=== PATIENT | male | born 1975 | race Caucasian/White ===

== ENCOUNTER 2017-10-29 10:46 | Emergency (ER) | payer BC, SELFPAY ==
[2017-10-29 10:53] VITALS: BP 143/90; PULSE 80; RESP 16; TEMP 36.6; O2SAT 98; BMI 29.1
--- NOTE | 2017-10-29 10:59 | HMH.EDUTC ---
[facility] [place]: G[place]itis Disposition: Home, Self-Care Condition on Discharge: Good Instructions: DI for Viral Gastroenteritis -- Adult, Viral Gastroenteritis Additional Instructions: ? Drink extra fluids with and between meals. If you have difficulty drinking, try very small amounts of water or suck on ice chips. ? Avoid fruit juices, as these do not replace minerals and can actually increase diarrhea. ? Children and adults can use sports drinks to replenish electrolytes. Younger children and infants should use products formulated for children, like oral rehydration solutions. ? Eat food in small amounts and let your stomach recover. ? Get lots of rest. You may feel tired or weak. ? Check with your doctor before taking medications or giving them to children. Never give aspirin to children or teenagers with a viral illness. This can cause Shankar syndrome, a potentially life-threatening condition. Prescriptions: Ondansetron [Zofran 4mg ODT] 4 mg PO Q8H PRN #20 tab.rapdis PRN Reason: Nausea Referrals: Domingo Valera MD [Primary Care Provider] - Forms: Work/School Release Time of Disposition: 12:11 Medical Decision Making - Medical Records Medical records reviewed: Yes: I reviewed the patient's medical records. Vital Signs: 10/29/17 10:53 Temperature 97.8 F Temperature Source Temporal Artery Scan Pulse Rate [Right] 80 Respiratory Rate 16 Blood Pressure [Right Arm] 143/90 Blood Pressure Mean [Right Arm] 107 Blood Pressure Source [Right Arm] Automatic Cuff Blood Pressure Position [Right Arm] Sitting 02 Sat by Pulse Oximetry 98 Oxygen Delivery Method Room Air Orders (Tests/Meds): ED MEDICATIONS Generic Name Dose Route Start Last Admin Trade Name Freq PRN Reason Stop Dose Admin Sodium Chloride 500 mls @ 500 mls/hr 10/29/17 11:23 10/29/17 11:24 Sod Chlor 0.9% 500ml Bag IV 10/29/17 12:22 500 mls/hr .Q1H LEILANI Administration Discontinued Medications Generic Name Dose Route Start Last Admin Trade Name Freq PRN Reason Stop Dose Admin Sodium Chloride 500 mls @ 500 mls/hr 10/29/17 11:15 Sod Chlor 0.9% 500ml Bag IV 11/28/17 11:14 .Q1H LEILANI Ondansetron HCl 4 mg 10/29/17 11:05 10/29/17 11:22 Zofran 4mg/2ml Vial IV 10/29/17 11:06 4 mg ONCE ONE Administration - Jose Inquiry Pt receiving controlled substance: No Jose was queried for this patient: No - Reevaluation(s) Time: 12:02 Reevaluation #1: Patient state that he feels much better after 500cc saline bolus and Zofran Patient ready for [place] [facility] [place] - General Stated complaint: nausea vomiting weak Mode of Arrival: Ambulatory Source of Information: Patient Limitations: No Limitations Description of Symptoms (Recalled from Triage Doc. by RN): n/v x2 days HEENT Symptoms (Recalled from RN notes): No Resp Symptoms (Recalled from RN notes): No Skin Symptoms (Recalled from RN notes): No MS Symptoms (Recalled from RN notes): No Functional Status (Recalled from RN notes): N - History of Present Illness Provider Complaint: Patient state that he has been having nausea vomiting and diarrhea since yesterday that has continued to get worse State that he has not been able to eat anything since yesterday but he has been drinking water State that he has had multiple eppisodes of both vomiting and diarrhea and he was worried that he may get dehydrated so he came in to get checked out - Related Data Previous Rx's Medication Instructions Recorded Ondansetron [Zofran 4mg ODT] 4 mg PO Q8H PRN #20 tab.rapdis 10/29/17 Allergies Allergy/AdvReac Type Severity Reaction Status Date / Time No Known Allergies Allergy Verified 10/29/17 10:57 - Worker's Comp Is this a Worker's Comp case?: No [facility] History I have reviewed the patient's past medical history: Yes - *Social History Alcohol Intake: never - Psychiatric History Expresses thoughts of harming self
--- NOTE | 2017-10-29 11:04 | ED_ITS ---
[facility] [place] Disposition Clinical Impression: Gastroenteritis Disposition: Home, Self-Care Condition on Discharge: Good Instructions: DI for Viral Gastroenteritis -- Adult, Viral Gastroenteritis Additional Instructions: ? Drink extra fluids with and between meals. If you have difficulty drinking, try very small amounts of water or suck on ice chips. ? Avoid fruit juices, as these do not replace minerals and can actually increase diarrhea. ? Children and adults can use sports drinks to replenish electrolytes. Younger children and infants should use products formulated for children, like oral rehydration solutions. ? Eat food in small amounts and let your stomach recover. ? Get lots of rest. You may feel tired or weak. ? Check with your doctor before taking medications or giving them to children. Never give aspirin to children or teenagers with a viral illness. This can cause Mackenzie?s syndrome, a potentially life-threatening condition. Prescriptions: Ondansetron [Zofran 4mg ODT] 4 mg PO Q8H PRN #20 tab.rapdis PRN Reason: Nausea Referrals: Domingo Valera MD [Primary Care Provider] - Forms: Work/School Release Time of Disposition: 12:11 Medical Decision Making - Medical Records Medical records reviewed: Yes: I reviewed the patient's medical records. Vital Signs: 10/29/17 10:53 Temperature 97.8 F Temperature Source Temporal Artery Scan Pulse Rate [Right] 80 Respiratory Rate 16 Blood Pressure [Right Arm] 143/90 Blood Pressure Mean [Right Arm] 107 Blood Pressure Source [Right Arm] Automatic Cuff Blood Pressure Position [Right Arm] Sitting 02 Sat by Pulse Oximetry 98 Oxygen Delivery Method Room Air Orders (Tests/Meds): ED MEDICATIONS Generic Name Dose Route Start Last Admin Trade Name Freq PRN Reason Stop Dose Admin Sodium Chloride 500 mls @ 500 mls/hr 10/29/17 11:23 10/29/17 11:24 Sod Chlor 0.9% 500ml Bag IV 10/29/17 12:22 500 mls/hr .Q1H LEILANI Administration Discontinued Medications Generic Name Dose Route Start Last Admin Trade Name Freq PRN Reason Stop Dose Admin Sodium Chloride 500 mls @ 500 mls/hr 10/29/17 11:15 Sod Chlor 0.9% 500ml Bag IV 11/28/17 11:14 .Q1H ELILANI Ondansetron HCl 4 mg 10/29/17 11:05 10/29/17 11:22 Zofran 4mg/2ml Vial IV 10/29/17 11:06 4 mg ONCE ONE Administration - Jose Inquiry Pt receiving controlled substance: No Jose was queried for this patient: No - Reevaluation(s) Time: 12:02 Reevaluation #1: Patient state that he feels much better after 500cc saline bolus and Zofran Patient ready for discharge home [facility] [place] HPI - General Stated complaint: nausea vomiting weak Mode of Arrival: Ambulatory Source of Information: Patient Limitations: No Limitations Description of Symptoms (Recalled from Triage Doc. by RN): n/v x2 days HEENT Symptoms (Recalled from RN notes): No Resp Symptoms (Recalled from RN notes): No Skin Symptoms (Recalled from RN notes): No MS Symptoms (Recalled from RN notes): No Functional Status (Recalled from RN notes): N - History of Present Illness Provider Complaint: Patient state that he has been having nausea vomiting and diarrhea since yesterday that has continued to get worse State that he has not been able to eat anything since yesterday but he has been drinking water State that he has had multipl
[2017-10-29 12:02] VITALS: BP 140/90; PULSE 88; RESP 18; TEMP 36.6
== END 2017-10-29 12:14 | disposition home or self-care (01) ==
PROVIDERS: Emergency Provider Nurse Practitioner; Family Provider Emergency Medicine; PCP Emergency Medicine
DX: K52.9 Noninfective gastroenteritis and colitis, unspecified (principal)
CPT/HCPCS: 96375; 99202; J2405

== ENCOUNTER → 2018-04-03 08:26 | Outpatient (CLI) | payer BC, SELFPAY ==
[2018-04-03 17:42] LABS: Basophils # 0.1 K/mm3 (0-0.2); Basophils % 0.6 % (0.1-2.0); Eosinophils # 0.2 K/mm3 (0.0-0.4); Eosinophils % 2.2 % (0.1-12.0); Hematocrit 48.2 % (42.0-52.0); Hemoglobin 15.3 g/dL (14.1-18.0); Lymphocytes # 2.3 K/mm3 (0.7-4.5); Lymphocytes % 26.4 K/mm3 (10-50); Mean Corpuscular HGB Conc 31.8 g/dL (31.8-35.4); Mean Corpuscular Hemoglobin 28.1 pg (27.0-31.2); Mean Corpuscular Volume 88.4 fl (80-94); Mean Platelet Volume 9.2 fl (7.4-10.4); Monocytes # 0.6 K/mm3 (0.1-1.0); Monocytes % 7.2 % (1.7-9.3); Neutrophils # 5.6 K/mm3 (1.8-7.8); Neutrophils % 63.5 % (37.0-80.0); Platelet Count 249 K/mm3 (142-424); Red Blood Count 5.45 M/mm3 (4.60-6.20); Red Cell Distribution Width 13.6 % (11.5-17.5); White Blood Count 8.7 K/mm3 (4.8-10.8)
[2018-04-03 18:27] LABS: Alanine Aminotransferase 47 U/L (12-78); Albumin Level 4.1 gm/dL (3.4-5.0); Albumin/Globulin Ratio 1.3 (1.1-1.8); Alkaline Phosphatase 81 U/L (46-116); Anion Gap 11.4 mEq/L (5-15); Aspartate Amino Transferase 17 U/L (15-37); Bilirubin,Total 0.4 mg/dL (0.2-1.0); Blood Urea Nitrogen 12 mg/dL (7-18); Calcium 9.1 mg/dL (8.5-10.1); Carbon Dioxide 30 mmol/L (21.0-32.0); Chloride 106 mmol/L (98-107); Chol/HDL Ratio 6.1 (1-3.5); Cholesterol 215 mg/dL (140-200); Creatinine,Serum 1.01 mg/dL (0.70-1.30); Estimated Glomerular Filt Rate 81 ml/min (>60); GFR (African American) 99 ML/MIN (>60); Globulin 3.1 gm/dl (1.3-3.2); Glucose 78 mg/dL (74-106); HDL Cholesterol 35 mg/dL (27-67); LDL Cholesterol 124 mg/dL (0-130); Potassium 4.4 mmoL/L (3.5-5.1); Sodium 143 mmol/L (136-145); Thyroid Stimulating Hormone 6.54 uIU/ml (0.358-3.740); Total Protein,Serum 7.2 gm/dL (6.4-8.2); Triglycerides 278 mg/dL (30-200); VLDL Cholesterol 56 mg/dL (0-40)
== END ==
PROVIDERS: Visit Provider Nurse Practitioner Family
DX: E66.3 Overweight (principal); R68.89 Other general symptoms and signs
CPT/HCPCS: 80053; 80061; 83036; 84436; 84443; 85025

== ENCOUNTER → 2020-05-08 14:24 | Outpatient (CLI) | payer BC, SELFPAY ==
--- NOTE | 2020-05-08 14:27 | MR_ITS ---
PROCEDURE: MR KNEE LT WO CON CLINICAL INDICATION: LEFT ANTERIOR KNEE PAIN Pt c/o left knee pain x 5-6 weeks. No known trauma or injury, pt states unable to bend extended knee. States knee locks up Pain is more lateral and posterior. COMPARISON: No exams were available for comparison TECHNIQUE: Routine multiplanar multi echo sequences are performed without gadolinium enhancement. FINDINGS: No evidence of cruciate ligament tear. The collateral ligaments, patellar tendon, and quadriceps tendon have an unremarkable appearance. The patellar cartilage is preserved. There is discontinuity along the inferior surface the posterior horn of the medial meniscus extending to the femoral surface slightly more lateral consistent with a nondisplaced longitudinal tear. The lateral meniscus has an unremarkable appearance. Unremarkable bone marrow signal intensity. There is only small amount of fluid in the retropatellar region. IMPRESSION: Nondisplaced longitudinal tear posterior horn medial meniscus Dictated by: Chucho Weeks MD 05/10/2020 11:20 Chucho Weeks MD in [place] 05/10/2020 11:21
== END ==
PROVIDERS: PCP Nurse Practitioner Family; Visit Provider Nurse Practitioner Family
DX: M25.562 Pain in left knee (principal); M25.462 Effusion, left knee; M23.52 Chronic instability of knee, left knee
CPT/HCPCS: 73721

== ENCOUNTER → 2020-06-12 14:27 | Outpatient (CLI) | payer BC, SELFPAY ==
--- NOTE | 2020-06-12 14:31 | XR_ITS ---
PROCEDURE: XR KNEE LT 4V CLINICAL INDICATION: LT knee pain COMPARISON: No exams were available for comparison FINDINGS: No fracture or dislocation. No lytic or blastic change. There is normal mineralization. The joint spaces are well-preserved. No significant degenerative/arthritic changes. No erosive changes evident. Other findings:None. IMPRESSION: No acute findings. Dictated by: Chucho Weeks MD 06/12/2020 15:15 Chucho Weeks MD in [facility] 06/12/2020 15:15
== END ==
PROVIDERS: PCP Nurse Practitioner Family; Visit Provider Orthopaedic Surgery
DX: M25.562 Pain in left knee (principal)
CPT/HCPCS: 73564

== ENCOUNTER → 2020-06-19 08:35 | Outpatient (CLI) | payer BC, SELFPAY ==
[2020-06-19 08:38] LABS: MANUAL DIFFERENTIAL MANUAL DIFFERENTIAL (MANUAL DIFF)
[2020-06-19 08:55] LABS: Basophils % 0.7 % (0.1-2.0); Eosinophils # 0.3 K/mm3 (0.0-0.4); Eosinophils % 3.9 % (0.1-12.0); Hematocrit 43.7 % (42.0-52.0); Hemoglobin 14.9 g/dL (14.1-18.0); Mean Corpuscular HGB Conc 34.1 g/dL (31.8-35.4); Mean Corpuscular Hemoglobin 30.4 pg (27.0-31.2); Mean Corpuscular Volume 89.3 fl (80-94); Mean Platelet Volume 7.9 fl (7.4-10.4); Monocytes # 0.4 K/mm3 (0.1-1.0); Monocytes % 6.6 % (1.7-9.3); Neutrophils # 3.6 K/mm3 (1.8-7.8); Neutrophils % 56.8 % (37.0-80.0); Platelet Count 202 K/mm3 (142-424); Red Cell Distribution Width 13.4 % (11.5-17.5); White Blood Count 6.3 K/mm3 (4.8-10.8)
[2020-06-19 10:26] LABS: Alanine Aminotransferase 24 U/L (12-78); Albumin/Globulin Ratio 1.6 (1.1-1.8); Alkaline Phosphatase 73 U/L (38-126); Anion Gap 11.7 mEq/L (5-15); Aspartate Amino Transferase 22 U/L (17-59); Bilirubin,Total 0.5 mg/dl (0.2-1.3); Blood Urea Nitrogen 10 mg/dl (9-20); Calcium 9.7 mg/dl (8.4-10.2); Carbon Dioxide 29 mmol/L (22.0-30.0); Chloride 104 mmol/L (98-107); Estimated Glomerular Filt Rate 73 ml/min (>60); GFR (African American) 88 ML/MIN (>60); Globulin 2.5 g/dL (1.3-3.2); Glucose 101 mg/dl (74-100); Potassium 4.7 mmoL/L (3.5-5.1); Sodium 140 mmol/L (136-145); Total Protein,Serum 6.5 g/dl (6.3-8.2)
[2020-06-19 10:49] LABS: Coronavirus 19 IgG Antibody Negative (Negative); Coronavirus 19 IgM Antibody Negative (Negative)
[2020-06-19 11:57] LABS: Eosinophils % 6 % (0-3); Lymphocytes % 31 % (10-50); Monocytes % 8 % (2-9); Neutrophils % 55 % (42-76); Platelet Estimate Normal; RBC Morphology Normal; Total Cells Counted 100
== END ==
PROVIDERS: Visit Provider Orthopaedic Surgery
DX: Z01.89 Encounter for other specified special examinations (principal); M25.562 Pain in left knee
CPT/HCPCS: 36415; 80053; 85007; 85014; 85018; 85048; 85049; 86328

== ENCOUNTER 2020-06-20 07:49 | Day surgery (SDC) | payer BC, SELFPAY ==
[2020-06-20] VITALS (13 sets, daily range): BP systolic 114–143; BP diastolic 66–86; PULSE 54–86; RESP 10–18; TEMP 36.2–43; O2SAT 93–99; BMI 32.5
--- NOTE | 2020-06-20 08:58 | HMH.ANESCL ---
[facility] Anesthesia Checklist - Structural Data Admitted From: Home Planned Operative Procedure/s: l knee arthroscopy Consent for Planned Operative Procedure(s) Verified: Yes - Additional verifications Anesthesia Reactions: No Hx Blood Transfusions: No Blood Transfusion Reaction: No - Airway Assessment C-Spine Mobility Assessed: Yes TMJ Mobility Assessed: Yes Dentition: Good Dentition - Neurological Assessment Level of Consciousness: Awake, Alert, Appropriate - Anesthesia Plan Anesthesia Risk discussed: Yes Anesthesia Plan: Verified ASA Class: II Anesthesia Type: General w/block [facility] History I have reviewed the patient's past medical history: Yes Medical History: Reports:: Kidney Stones Denies:: Cancer, Diabetes Mellitus Type 1, Diabetes Mellitus Type 2, Internal Pacemaker, MRSA, Seizures *Have you ever received a pneumonia vaccine?: No *Have you received a flu vaccine this season?: No Other Medical History: Denies: Blood Transfusion Reaction Anesthesia experience/problems:: none Other Surgeries: Yes: Colonoscopy. No: Pacemaker Amputation: No Fractures: No - *Social History Smoking Status: Never smoker Alcohol Intake: never Alcohol Intake Frequency:: holidays/special occasions only Substance Use Type: denies use *Occupational Status:: employed Housing: house Household Members: spouse *Travel in the last 8 weeks: None Family Hx:: No significant family history
--- NOTE | 2020-06-20 10:45 | P.PN_ITS ---
[facility] Anesthesia Record Part I Intake, IV Amount: 1,000 Estimated blood loss (mL): 5 Urine output (mL): 0 Blood Pressure: 114/66 SaO2: 94 Pulse Rate: 54 Respiratory Rate: 16 Temperature: 97.2 F Patient is:: Drowsy, Stable Stable to PACU at:: 10:40
--- NOTE | 2020-06-20 12:35 | HMH.ANESII ---
[facility] Anesthesia Record Part II Discharge Time: 11:10 Destination: Surgical Day Care (OP Surgery) PACU nurse assessment reviewed?: Yes Patient Condition:: Good Anesthesia Complications:: None Swallowing reflex intact?: Yes Cyanosis?: No Blood Pressure: 130/71 Pulse Rate: 60 Temperature: 97.2 F Mental Status: Alert & Oriented Pain level:: 0 Nausea and/or vomitting:: None Intake, IV Amount: 0
--- NOTE | 2020-06-20 20:52 | HMH.OPNOTE ---
Date of procedure: 06/20/20 Pre-op Diagnosis:: L knee medial meniscus tear Post-op Diagnosis:: L knee medial meniscus tear Procedure performed:: L knee arthroscopy, partial medial meniscectomy Surgeon:: Sally Kapadia MD Keyboard Instrument Repairer(s):: Tiarra Jernigan GYROSCOPIC ENGINEERING TECHNICIAN:: Norbert Sweeney Anesthesia: GETA, local, other Estimated blood loss (mL): 5 Clinical Note:: 44-year-old gentleman with approximately 8 weeks of left knee pain. 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 He does recall that approximately 1 to 2 weeks prior to that he jumped off the back of a truck and landed on both legs with a popping sensation and discomfort in the knee. He did not have significant pain after that however. Over the last 8 weeks he has tried oral anti-inflammatories, tramadol, and icing of the knee in addition to rest, but the pain has not improved. He has had an MRI done by his primary care physician. Past medical history significant only for hypertension, which is controlled with lisinopril 20 mg daily. He is a non-smoker and has no known drug allergies. He is employed by [employer]. MRI revealed a tear of the posterior horn of the medial meniscus, without any other injury or noticeable degenerative changes in the knee. I discussed treatment options with the patient, including both operative and non-operative treatments, and the patient would like to proceed with surgery at this time. I discussed the possibility of meniscus repair if the tear appears amenable to this at the time of surgery, as well as the possibility of partial meniscectomy. I discussed the risks of surgery with the patient, including but not limited to: bleeding, infection, bruising of the knee, neurovascular damage, intra-operative MCL injury or fracture, risk of post-operative tourniquet pain, persistent pain and/or limp despite surgery. The patient vocalized understanding and has elected to proceed with surgery on 06/20/20. 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 Moderate tear of posterior horn medial meniscus, bird beak shape, with both radial and horizontal components, involving medial 1/3-1/2 of meniscus in white-white and maybe some of the red-white zone. No meniscal root involvement. notch: ACL, PCL intact, no osteophytes/impinging lesions lateral compartment: no issues noted Operative note:: The patient was identified in preoperative holding and the L knee signed by myself. Informed consent was reviewed and confirmed with the patient, all questions answered. Pre-operative laboratory testing was reviewed and found to be within acceptable limits. The patient was then taken to the OR and placed supine on the operative table. 2 g Ancef were infused and general anesthesia induced. The L leg was then placed in an arthroscopic leg shaikh with a nonsterile tourniquet on the upper thigh. The leg was then prepped and draped in the usual sterile fashion for knee arthroscopy. Timeout was performed, identifying the correct patient, correct procedure, and correct site. The procedure was begun by first exsanguinating the L leg and inflating the tourniquet to 250 mmHg. Using an 11 blade, standard anterolateral and anteromedial portals were established on the knee, using normal anatomic landmarks. 30 degree arthroscope was inserted via the lateral portal into the suprapatellar pouch with the knee in extension. A superolateral outflow portal was then established under direct visualization with tubing connected to gravity. The patellofemoral joint was examined first and no focal defects seen across both medial and lateral facets of the patella. 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 No plica, hypertroph
== END 2020-06-20 11:53 | disposition home or self-care (01) ==
LOC: OR 07:50
PROVIDERS: PCP Nurse Practitioner Family; Visit Provider Orthopaedic Surgery
PROC: (CPT 29870; principal; 2020-06-20 09:15)
DX: S83.242A Other tear of medial meniscus, current injury, left knee, initial encounter (principal); Y93.39 Activity, other involving climbing, rappelling and jumping off
CPT/HCPCS: 29882; 96374; J2405

== ENCOUNTER 2020-07-27 09:00 | Outpatient (RCR) | payer BC, SELFPAY ==
--- NOTE | 2020-07-05 10:28 | HMH.PTOPEV ---
PT Outpatient Evaluation Rehab PT Outpatient Evaluation Start: 07/05/20 09:21 Freq: Status: Active Protocol: Document 07/05/20 09:22 CÉSAR (Rec: 07/05/20 10:22 CÉSAR [id number]) Electronically Signed By Tad Baez, PT 07/05/20 09:22 Outpatient Therapy Subjective History Subjective History Pt presents s/p L knee partial medial meniscectomy ~ 2 weeks ago. Pt reports 'normal' post -op pain, stiffness, weakness, and swelling. Pt reports initial insult to L knee ' likely happened about 6 weeks ago when i jumped off my tailgate'. Chief Complaint Pain,Stiff,Weakness Symptom Type Ache,Dull Symptoms Relieved By Rest/Positioning,Ice Symptoms Aggravated By Standing,Walking Prior Functional Limitations Standing,Walking,Stairs Current Functional Limitations Standing,Squatting,Walking, Stairs Symptom Description Constant but Variable Level of pain today (0-10) 4 Pain scale - at its best (0-10) 4 Pain scale - at its worst (0-10) 7 Hip/Knee Eval Gait Observation General Gait Pattern Observation Antalgic Gait Palpation Tenderness left Knee Palpation Finding Tenderness Knee Palpation Overall Comment VL 3/4 (DISTAL MM BELLY), MEDIAL JT LINE 3/4 MMT Hip Flexion Strength Grade 4 Good Hip Abduction Strength Grade 4- Good- Hip Adduction Strength Grade 4- Good- Hip Extension Strength Grade 4- Good- Hip External Rotation Strength Grade 4 Good Hip Internal Rotation Strength Grade 4 Good Knee Extension Strength Grade 4 Good Knee Flexion Strength Grade 4- Good- ROM Knee Flexion Active Range of Motion ( 10-105 degrees) Knee Flexion Passive Range of Motion ( 5-110 degrees) Effusion joint effusion knee exam standard left Mid - Patellar Circumerential Measure ( 42 cm) Outpatient Therapy Assessment Impairments Problems/Impairmments Palpation Tenderness,Impaired Range of Motion,Impaired Strength,Impaired Gait Pattern ,Impaired Walking,Impaired Standing,Impaired Stair Climbing,Impaired Squatting, Increased Edema,Subjective C/O Pain,Impaired Self Care/Self Management Prognosis Rehab Potential Good Clinical Impression Consistent with Diagnosis
== END 2020-07-27 09:47 | disposition home or self-care (01) ==
LOC: PT 09:00
PROVIDERS: PCP Nurse Practitioner Family; Visit Provider Orthopaedic Surgery
DX: S83.242D Other tear of medial meniscus, current injury, left knee, subsequent encounter (principal)
CPT/HCPCS: 97010; 97014; 97016; 97110; 97163; G0283

== ENCOUNTER → 2020-08-21 12:07 | Outpatient (CLI) | payer BC, SELFPAY ==
[2020-08-22 13:58] LABS: Covid-19 Nasal PCR Sendout Lex NOT DETECTED
== END ==
PROVIDERS: PCP Nurse Practitioner Family; Visit Provider Nurse Practitioner
DX: Z03.818 Encounter for observation for suspected exposure to other biological agents ruled out (principal)
CPT/HCPCS: U0004

== ENCOUNTER → 2020-09-21 09:04 | Outpatient (CLI) | payer BC, SELFPAY ==
--- NOTE | 2020-09-21 09:17 | XR_ITS ---
PROCEDURE: XR ELBOW RT MIN 3V CLINICAL INDICATION: EFFUSION/PAIN, RIGHT ELBOW COMPARISON: No exams were available for comparison FINDINGS: There is a segmented calcific density which is well-circumscribed distal to the medial epicondyle and may represent an old fracture. There are no previous exams available for comparison. No acute fracture or dislocation is evident. No displaced fat pad apparent. A faint calcific density is present along the posterior aspect the elbow joint at the proximal olecranon area and could represent a small loose body measuring 1-2 mm. There are mild osteoarthritic changes of the elbow. 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
== END ==
LOC: RAD 09:08
PROVIDERS: PCP Nurse Practitioner Family; Visit Provider Nurse Practitioner Family
DX: M25.521 Pain in right elbow (principal); M25.421 Effusion, right elbow
CPT/HCPCS: 73080

== ENCOUNTER → 2020-09-27 07:46 | Outpatient (CLI) | payer BC, SELFPAY ==
--- NOTE | 2020-09-27 07:52 | MR_ITS ---
PROCEDURE: MR ELBOW RT WO CON CLINICAL INDICATION: RT ELBOW PAIN Pt. c/o rt elbow pain with limited range of motion x 1 month. Pt denies injury or trauma. Pt states his elbow locks up. Pt has never had any surgery on the rt elbow. Prior rt elbow xrays done 09/21/2019 COMPARISON: CR XR ELBOW RT MIN 3V from 09/21/2020 TECHNIQUE: Routine multiplanar multi echo sequences are performed without gadolinium enhancement. FINDINGS: There is a separate calcific density distal to the lateral epicondyle as noted recent radiograph with 2 areas of calcification at this region. This may be related to an old ununited fracture or ununited ossification center as noted from the previous radiograph. The ulnar collateral ligament attach is to this ossicle and appears intact. The lateral collateral ligament and annular ligament appear intact. There is a small elbow joint effusion. Common extensor tendon has an unremarkable appearance. There is some increased T2 signal at the common flexor tendon which could represent mild medial epicondylitis. The biceps tendon and brachialis tendons have an unremarkable appearance. Slight increased T2 signal of the triceps tendon nonspecific but could be seen with mild tendinopathy. IMPRESSION: 1. Small elbow joint effusion. 2. 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 There is some mild soft tissue edema edema at this region 3. Mild medial epicondylitis Dictated by: Chucho Weeks MD 10/02/2020 14:06 Chucho Weeks MD in [place] 10/02/2020 14:06
== END ==
LOC: RAD 07:47
PROVIDERS: PCP Nurse Practitioner Family; Visit Provider Orthopaedic Surgery
DX: M25.521 Pain in right elbow (principal); M25.421 Effusion, right elbow; Z98.890 Other specified postprocedural states
CPT/HCPCS: 73221

== ENCOUNTER 2020-11-10 12:28 | Emergency (ER) | payer BC, SELFPAY ==
[2020-11-10 12:33] VITALS: BP 143/78; PULSE 63; RESP 18; TEMP 36.7; O2SAT 96; BMI 32.5
--- NOTE | 2020-11-10 12:44 | HMH.EDUTC ---
[facility] [place] Disposition Clinical Impression: Low back pain Qualifiers: Chronicity: acute Back pain laterality: right Sciatica presence: without sciatica Qualified Code(s): M54.5 - Low back pain Disposition: Home, Self-Care Condition on Discharge: Good Instructions: DI for Low Back Pain Prescriptions: Cyclobenzaprine HCl [Cyclobenzaprine 10mg Tab*] 10 mg PO TIDP PRN 10 Days #30 tab PRN Reason: Muscle Spasm Transmission Status: Pending to [facility] # Diclofenac Sodium [Diclofenac 75mg Tab] 75 mg PO BID 10 Days #20 tab Transmission Status: Pending to [facility] # Referrals: Chantale Garcia APRN [Primary Care Provider] - Time of Disposition: 12:52 Medical Decision Making - Jose Inquiry Pt receiving controlled substance: No Vital Signs: 11/10/20 12:33 Temperature 98.0 F Temperature Source Oral Pulse Rate [Right Brachial] 63 Respiratory Rate 18 Blood Pressure [Right Arm] 143/78 H Blood Pressure Mean [Right Arm] 99 Blood Pressure Source [Right Arm] Automatic Cuff Blood Pressure Position [Right Arm] Sitting 02 Sat by Pulse Oximetry 96 Oxygen Delivery Method Room Air [facility] [place] HPI - General Stated complaint: low back pain, no accident Time Seen by Provider: 11/10/20 12:44 Mode of Arrival: Ambulatory Source of Information: Patient Limitations: No Limitations Description of Symptoms (Recalled from Triage Doc. by RN): Lower back pain HEENT Symptoms (Recalled from RN notes): No Resp Symptoms (Recalled from RN notes): No Skin Symptoms (Recalled from RN notes): No MS Symptoms (Recalled from RN notes): Yes Functional Status (Recalled from RN notes): wnl - History of Present Illness Provider Complaint: LBP X 2 days. No accident or injury but has had similar in the past. States pain started yesterday but was fairly mild. 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 Pain on right low back without radiation. Onset (ago): day(s) (2) Location: back Radiation: non-radiation Relieving factors: none Exacerbating factors: none Associated symptoms: denies other symptoms Treatments prior to arrival: NSAID - Related Data Home Medications Medication Instructions Recorded Confirmed lisinopriL [Lisinopril 20mg Tab] 20 mg PO DAILY 06/16/20 10/02/20 Previous Rx's Medication Instructions Recorded Cyclobenzaprine HCl 10 mg PO TIDP PRN 10 Days #30 tab 11/10/20 [Cyclobenzaprine 10mg Tab*] Diclofenac Sodium [Diclofenac 75mg 75 mg PO BID 10 Days #20 tab 11/10/20 Tab] Allergies Allergy/AdvReac Type Severity Reaction Status Date / Time No Known Allergies Allergy Verified 10/02/20 14:35 - Worker's Comp Is this a Worker's Comp case?: No [facility] History - Hepatitis A Screen Drug use history?: No High risk sexual behaviors?: No History of sexually transmitted infection?: No Currently employed?: No Childcare worker?: No Do you have indoor plumbing?: Yes Do you have electricity?: Yes Attestation statement:: This patient has been screened for Hepatitis A risk factors. I have reviewed the patient's past medical history: Yes Medical History: Reports:: Hypertension, Kidney Stones Denies:: Cancer, Diabetes Mellitus Type 1, Diabetes Mellitus Type 2, Internal Pacemaker, MRSA, Seizures Other Medical History: Denies: Blood Transfusion Reaction Laterality Cases: Left: Arthroscopy Knee Other Surgeries: Yes: Colonoscopy. No: Pacemaker Amputation: No Fractures: No Comment: sleep apneia - Social History Smoking Status: Never smoker Alcohol Intake: never Alcohol Intake Frequency:: holidays/special occasions only Substance Use Type: denies use Occupational Status: employed Housing: house Household Members: spouse Family Hx:: No significant family history ROS Obtained: Yes All systems reviewed & no additional complaints - Musculoskeletal Musculoskeletal: Reports back pain Physical Exam - General Ge
[2020-11-10 13:07] VITALS: BP 143/78; PULSE 63; RESP 18; TEMP 36.7; O2SAT 96
== END 2020-11-10 13:08 | disposition home or self-care (01) ==
PROVIDERS: Emergency Provider Physician Assistant; PCP Nurse Practitioner Family
DX: M54.5 Low back pain (principal); I10 Essential (primary) hypertension; Z87.442 Personal history of urinary calculi; Z79.899 Other long term (current) drug therapy
CPT/HCPCS: 96372; 99202; G0463; J1030

== ENCOUNTER 2022-06-08 17:28 | Emergency (ER) | payer BC, SELFPAY ==
[2022-06-08 17:47] VITALS: BP 136/92; PULSE 82; RESP 17; TEMP 36.8; O2SAT 98; BMI 32.5
--- NOTE | 2022-06-08 18:05 | EXP.UTC ---
Discharge Plan Disposition Patient Disposition: Home, Self-Care Condition: Good Prescriptions Prescriptions: New methylprednisolone 4 mg Tablets,Dose Pack 4 mg PO DIRECTED Qty: 21 0RF methocarbamol 750 mg tablet 750 mg PO TID PRN (Reason: muscle spasm) Qty: 30 0RF No Action lisinopril 20 MG tablet 20 mg PO DAILY Referrals Follow up/Referrals: Chantale Garcia APRN [Primary Care Provider] - See instructions Activity Restrictions/Add. Instructions Additional Instructions/Restrictions: Go home and rest. It would be best if you rested tomorrow too. No heavy lifting. No twisting. Take the oral medications as directed. The muscle relaxer (methocarbimoll) will make you drowsy, so don't drive or operate heavy machinery after taking it. Don't start the oral steroids (medrol dose pack) until tomorrow, since you had the shots in here today. Follow up with your regular doctor. GO TO THE ER FOR ANY WORSENING SYMPTOMS OR CONCERN, ESPECIALLY BOWEL OR BLADDER ISSUES, SADDLE AREA NUMBNESS, FEVER, ETC Clinical Impressions Clinical Impression: Low back pain Instructions Patient Instructions: DI for Low Back Pain Discharge ED Provider: Saroj Soto [facility] General Stated complaint: back pain muscle spasm Mode of Arrival: Ambulatory Source of Information: Patient Limitations: No Limitations Time Seen by Provider: 06/08/22 18:00 Description of Symptoms (Recalled from Triage Doc. by RN): pt comes in with c/o muscle spasms in back. symptoms began last night. HEENT Symptoms (Recalled from RN notes): No Resp Symptoms (Recalled from RN notes): No Skin Symptoms (Recalled from RN notes): No MS Symptoms (Recalled from RN notes): Yes Functional Status (Recalled from RN notes): n/a History of Present Illness Provider Complaint: He states that since yesterday he has had right sided low back pain and muscle spasms. He has had episodes of this before and he had to come in to get steroids and muscle relaxers. He denies any bowel or bladder issues. He denies any saddle area numbness. Related Data Home Medications Medication Instructions Recorded Confirmed lisinopril 20 mg tablet 20 mg PO DAILY blood pressure 06/16/20 06/08/22 Previous Rx's Medication Instructions Recorded methocarbamol 750 mg tablet 750 mg PO TID PRN muscle spasm #30 06/08/22 tabs methylprednisolone 4 mg tablets in 4 mg PO DIRECTED #21 tabs 06/08/22 a dose pack Allergies Allergy/AdvReac Type Severity Reaction Status Date / Time No Known Allergies Allergy Verified 06/08/22 17:49 Worker's Comp Is this a Worker's Comp case?: No PFSH PFSH Social History Smoking Status: Never smoker alcohol intake: never substance use type: denies use current occupational status: employed Travel in the last 8 weeks: None household members: spouse housing: house current occupational exposures/hazards: No caffeine: No ROS Obtained: Yes All systems reviewed & no additional complaints except as documented Constitutional Constitutional: Reports system reviewed and no additional complaints, except as documented, Denies chills and Denies fever(s) Eyes Eyes: Denies eye discharge ENT Ears, Nose, Mouth, and Throat: Denies dysphagia, Denies sore throat and Denies throat swelling Cardiovascular Cardiovascular: Denies chest pain and Denies dyspnea Respiratory Respiratory: Denies chest congestion, Denies cough and Denies dyspnea Gastrointestinal Gastrointestingal: Denies abdominal pain, constipation, diarrhea, dysphagia, nausea or vomiting Musculoskeletal Musculoskeletal: Denies arthralgias Integumentary/Breasts Skin/Breast: Denies rash Neurologic Neurologic: Denies paresthesias Allergic/Immunologic Allergic/Immunologic: Denies throat swelling Physical Exam General General appearance: alert and in no apparent distress Head Head exam: atraumatic, normoc
[2022-06-08 18:27] VITALS: BP 136/92; PULSE 82; RESP 17; TEMP 36.8
== END 2022-06-08 18:29 | disposition home or self-care (01) ==
PROVIDERS: Emergency Provider Nurse Practitioner Family; PCP Nurse Practitioner Family
DX: M54.50 Low back pain, unspecified (principal); M62.830 Muscle spasm of back
CPT/HCPCS: 96372; 99212; G0463

== ENCOUNTER 2022-07-09 08:47 | Emergency (ER) | payer BC, SELFPAY ==
[2022-07-09 10:12] VITALS: BP 123/73; PULSE 73; RESP 18; TEMP 36.9; O2SAT 98; BMI 32.5
--- NOTE | 2022-07-09 10:23 | EXP.UTC ---
Discharge Plan Disposition Patient Disposition: Home, Self-Care Condition: Good Prescriptions Prescriptions: New benzonatate 100 mg capsule 100 mg PO TID PRN (Reason: cough) Qty: 30 0RF methylprednisolone [Medrol (Chace)] 4 mg tablets,dose pack See Rx Instructions .Route .COMPLEX 6 Days Qty: 21 0RF Rx Instructions: taper pack; amoxicillin-pot clavulanate 875-125 mg Tablet 1 tab PO Q12H Qty: 20 0RF No Action lisinopril 20 MG tablet 20 mg PO DAILY methylprednisolone 4 mg Tablets,Dose Pack 4 mg PO DIRECTED Qty: 21 0RF methocarbamol 750 mg tablet 750 mg PO TID PRN (Reason: muscle spasm) Qty: 30 0RF Referrals Follow up/Referrals: Chantale Garcia APRN [Primary Care Provider] - See instructions Activity Restrictions/Add. Instructions Additional Instructions/Restrictions: *Monitor Temp, Over the counter Motrin or Tylenol as directed/as needed Tylenol every 4 hours and Motrin every 6 hours (as long as your family doctor has told you that you can take it) for fever or pain. and straight to ER if unable to lower temp less than 101.0 after medication given *Warm salt water gargles may help to soothe the throat *Throat Lozenges? *Warm fluids like tea with honey may help to soothe the throat? *Sleep elevated *Humidifier/Vaporizer Take medication as prescribed Start oral steriods tomorrow 07/10 Follow up IMMEDIATELY for new or worsening symptoms or no Noticeable improvement over the next 48-72 hours. 911 for difficulty breathing or swallowing Clinical Impressions Clinical Impression: Bronchitis Sinusitis Qualifiers: Sinusitis location: unspecified location Chronicity: unspecified Qualified Code(s): J32.9 - Chronic sinusitis, unspecified Stand Alone Forms Stand Alone Forms: Work/School Release Instructions Patient Instructions: Sinusitis, Acute Bronchitis, DI for Sinusitis Discharge ED Provider: Caron Walsh [facility] [place] [facility] [place] General Stated complaint: Congestion, loss of voice Mode of Arrival: Ambulatory Source of Information: Patient Limitations: No Limitations Time Seen by Provider: 07/09/22 10:23 Description of Symptoms (Recalled from Triage Doc. by RN): pt comes in with c/o head/chest congestion, cough. ongoing for 1 week HEENT Symptoms (Recalled from RN notes): Yes Resp Symptoms (Recalled from RN notes): Yes Skin Symptoms (Recalled from RN notes): No MS Symptoms (Recalled from RN notes): No Functional Status (Recalled from RN notes): n/a History of Present Illness Provider Complaint: Patient state he has been sick for about a week State that he has been having sinus congestion and pressure, cough and feels like it is trying to move into his chest State that this morning he woke up and could barely speak so he came in to get checked Related Data Home Medications Medication Instructions Recorded Confirmed lisinopril 20 mg tablet 20 mg PO DAILY blood pressure 06/16/20 07/09/22 Previous Rx's Medication Instructions Recorded methocarbamol 750 mg tablet 750 mg PO TID PRN muscle spasm #30 06/08/22 tabs methylprednisolone 4 mg tablets in 4 mg PO DIRECTED #21 tabs 06/08/22 a dose pack amoxicillin 875 mg-potassium 1 tab PO Q12H #20 tabs 07/09/22 clavulanate 125 mg tablet benzonatate 100 mg capsule 100 mg PO TID PRN cough #30 caps 07/09/22 methylprednisolone 4 mg tablets in See Rx Instructions .Route 07/09/22 a dose pack (Medrol (Chace)) .COMPLEX 6 days #21 tabs Allergies Allergy/AdvReac Type Severity Reaction Status Date / Time No Known Allergies Allergy Verified 07/09/22 10:14 Worker's Comp Is this a Worker's Comp case?: No PFSH PFSH Social History Smoking Status: Never smoker alcohol intake: never substance use type: denies use current occupational status: employed Travel in the last 8 weeks: None household members: spouse housing: house current occupat
[2022-07-09 10:42] VITALS: BP 123/73; PULSE 73; RESP 18; TEMP 36.9
== END 2022-07-09 10:46 | disposition home or self-care (01) ==
PROVIDERS: Emergency Provider Nurse Practitioner; PCP Nurse Practitioner Family
DX: J40 Bronchitis, not specified as acute or chronic (principal); J32.9 Chronic sinusitis, unspecified
CPT/HCPCS: 96372; 99212; G0463

== ENCOUNTER 2022-07-20 10:48 | Emergency (ER) | payer BC, SELFPAY ==
--- NOTE | 2022-07-20 11:05 | EXP.UTC ---
Discharge Plan Disposition Patient Disposition: Home, Self-Care Condition: Good Prescriptions Prescriptions: No Action lisinopril 20 MG tablet 20 mg PO DAILY benzonatate 100 mg capsule 100 mg PO TID PRN (Reason: cough) Qty: 30 0RF methylprednisolone [Medrol (Chace)] 4 mg tablets,dose pack See Rx Instructions .Route .COMPLEX 6 Days Qty: 21 0RF Rx Instructions: taper pack; amoxicillin-pot clavulanate 875-125 mg Tablet 1 tab PO Q12H Qty: 20 0RF methylprednisolone 4 mg Tablets,Dose Pack 4 mg PO DIRECTED Qty: 21 0RF methocarbamol 750 mg tablet 750 mg PO TID PRN (Reason: muscle spasm) Qty: 30 0RF Referrals Follow up/Referrals: Chantale Garcia APRN [Primary Care Provider] - See instructions Jorge Montgomery MD [Staff Physician] - See instructions Activity Restrictions/Add. Instructions Additional Instructions/Restrictions: Go home and rest. No heavy lifting. No twisting. Don't start the oral steroids (medrol dose pack) until tomorrow, since you had the shots in here today. Rest the extremity. Take the medications as directed. Follow up with Dr. Montgomery (orthopedics) if you continue to have shoulder pain. I put in a referral but you need to call his office and schedule an appointment. Follow up with your regular doctor. GO TO THE ER FOR ANY WORSENING SYMPTOMS Clinical Impressions Clinical Impression: Pain in right shoulder, Radiculopathy Instructions Patient Instructions: Shoulder Tendinopathy, DI for Shoulder Pain Discharge ED Provider: Saroj Soto [facility] General Stated complaint: Right Shoulder pain Time Seen by Provider: 07/20/22 11:05 History of Present Illness Provider Complaint: He states that for the past 2 days he has had right shoulder pain that radiates down his right arm at times. Moving his shoulder makes the pain worse. He denies any known injury. He did have bronchitis last week and had lots of coughing that he thinks may have caused his shoulder pain. Related Data Home Medications Medication Instructions Recorded Confirmed lisinopril 20 mg tablet 20 mg PO DAILY blood pressure 06/16/20 07/09/22 Previous Rx's Medication Instructions Recorded methocarbamol 750 mg tablet 750 mg PO TID PRN muscle spasm #30 06/08/22 tabs methylprednisolone 4 mg tablets in 4 mg PO DIRECTED #21 tabs 06/08/22 a dose pack amoxicillin 875 mg-potassium 1 tab PO Q12H #20 tabs 07/09/22 clavulanate 125 mg tablet benzonatate 100 mg capsule 100 mg PO TID PRN cough #30 caps 07/09/22 methylprednisolone 4 mg tablets in See Rx Instructions .Route 07/09/22 a dose pack (Medrol (Chace)) .COMPLEX 6 days #21 tabs Allergies Allergy/AdvReac Type Severity Reaction Status Date / Time No Known Allergies Allergy Verified 07/20/22 11:40 [facility] Social History Smoking Status: Never smoker alcohol intake: never substance use type: denies use current occupational status: employed Travel in the last 8 weeks: None household members: spouse housing: house current occupational exposures/hazards: No caffeine: No ROS Obtained: Yes All systems reviewed & no additional complaints except as documented Constitutional Constitutional: Denies chills and Denies fever(s) Integumentary/Breasts Skin/Breast: Denies redness, Denies rash and Denies wounds Neurologic Neurologic: Denies paresthesias Physical Exam General General appearance: alert and in no apparent distress Head Head exam: atraumatic, normocephalic and normal inspection Eye Eye exam: Present normal appearance, PERRL and EOMI ENT ENT exam: Present normal exam, normal oropharynx, mucous membranes moist, TM's normal bilaterally and normal external ear exam Neck Neck exam: Present normal inspection, full ROM and trachea midline; Absent meningismus or lymphadenopathy Chest Chest inspection: Present normal inspection and symm
[2022-07-20 11:33] VITALS: BP 149/93; PULSE 101; RESP 18; TEMP 36.8; O2SAT 98; BMI 33.6
[2022-07-20 12:29] VITALS: BP 149/93; PULSE 101; RESP 18; TEMP 36.8
== END 2022-07-20 12:30 | disposition home or self-care (01) ==
PROVIDERS: Emergency Provider Nurse Practitioner Family; PCP Nurse Practitioner Family
DX: M54.10 Radiculopathy, site unspecified (principal); M25.511 Pain in right shoulder
CPT/HCPCS: 96372; 99212; G0463

== ENCOUNTER → 2022-07-25 10:14 | Outpatient (CLI) | payer BC, SELFPAY ==
--- NOTE | 2022-07-25 10:19 | XR_ITS ---
FINAL REPORT CLINICAL HISTORY: CERVICALGIA, R ARM NUMBNES TINGLING OF R UPPER EXTREMITY FINDINGS: CERVICAL SPINE 5 views were obtained. There is no acute fracture. There is mild reversal of the normal cervical lordosis. The disc spaces are preserved. There is no soft tissue abnormality. IMPRESSION: No acute bony abnormality. Reviewed, Interpreted and Dictated by Stas Miranda MD Transcribed by Kallie Aragon Authenticated and . [facility]
== END ==
LOC: RAD 10:15
PROVIDERS: PCP Nurse Practitioner Family; Visit Provider Nurse Practitioner Family
DX: M54.2 Cervicalgia (principal); R20.0 Anesthesia of skin; R20.2 Paresthesia of skin
CPT/HCPCS: 72050

== ENCOUNTER → 2022-08-05 07:33 | Outpatient (CLI) | payer BC, SELFPAY ==
--- NOTE | 2022-08-05 07:35 | MR_ITS ---
FINAL REPORT CLINICAL HISTORY: CERVICALGIA, RIGHT ARM NUMBNESS NECK PAIN INTO HANDS. NO INJURY FINDINGS: Multiplanar MR imaging of the cervical spine was performed without contrast. On the sagittal T2-weighted images, disc degeneration is seen at several levels. There is no evidence of fracture. There is mild kyphosis centered at C5-6. The vertebral alignment is normal. The cervical spinal cord has an unremarkable appearance without evidence of mass, edema or syrinx. No significant canal stenosis is identified. The cervicomedullary junction is normal. C2-3: There is no significant canal stenosis or neural foraminal narrowing. C3-4: A small central disc protrusion is present. C4-5: An annular disc bulge is present with a small central disc protrusion. C5-6: An annular disc bulge is present with mild right neural foraminal narrowing. C6-7: An annular disc bulge is present with bilateral uncovertebral osteophytes. There is a right foraminal disc protrusion versus extrusion. There is right C7 nerve root impingement and severe right and mild left neural foraminal narrowing. C7-T1: Bilateral uncovertebral osteophytes are present. IMPRESSION: Multilevel degenerative disc disease and spondylosis. Right foraminal disc protrusion versus extrusion at C6-7 with severe right and mild left neural foraminal narrowing and right C7 nerve root impingement. Reviewed, Interpreted and Dictated by Jimmie Roa III, MD Transcribed by Chelsie Shane Authenticated and [facility]
== END ==
LOC: RAD 07:33
PROVIDERS: PCP Nurse Practitioner Family; Visit Provider Nurse Practitioner Family
DX: M54.2 Cervicalgia (principal); R20.0 Anesthesia of skin; R20.2 Paresthesia of skin
CPT/HCPCS: 72141; 76376

== ENCOUNTER → 2023-01-22 12:15 | Outpatient (CLI) | payer BC, SELFPAY ==
--- NOTE | 2023-01-22 12:20 | XR_ITS ---
FINAL REPORT CLINICAL HISTORY: Sacral pain FINDINGS: Sacrum/coccyx Three views were obtained. There is no acute fracture or dislocation. The joint spaces appear normal. No soft tissue abnormality is identified. IMPRESSION: No acute process. Reviewed, Interpreted and Dictated by Jamison Marquez MD Transcribed by Ilda Carr Authenticated and [facility]
== END ==
LOC: RAD 12:16
PROVIDERS: PCP Nurse Practitioner Family; Visit Provider Nurse Practitioner Family
DX: M53.3 Sacrococcygeal disorders, not elsewhere classified (principal)
CPT/HCPCS: 72220

== ENCOUNTER → 2023-04-08 12:48 | Outpatient (CLI) | payer BC, SELFPAY ==
--- NOTE | 2023-04-08 12:48 | MR_ITS ---
FINAL REPORT TECHNIQUE: Multiplanar MR without contrast CLINICAL HISTORY: Abnormal xray fall 4-5 months ago pain when sitting longer than 30 minutes FINDINGS: No marrow edema to indicate acute osseous process. Minimal posterior displacement of the upper coccyx presumably congenital or remote fracture. Minimal nonspecific edema dorsal to the coccyx could be due to contusion. IMPRESSION: No acute bony. Reviewed, Interpreted and Dictated by Jamison Marquez MD Transcribed by Sung Powell Authenticated and [facility]
== END ==
LOC: RAD 12:48
PROVIDERS: PCP Nurse Practitioner Family; Visit Provider Nurse Practitioner Family
DX: M53.3 Sacrococcygeal disorders, not elsewhere classified (principal); R93.89 Abnormal findings on diagnostic imaging of other specified body structures
CPT/HCPCS: 72195

== ENCOUNTER 2023-09-23 12:45 | Outpatient (CLI) | payer BC, SELFPAY | END 2023-09-23 23:59 | LOC: LAB.DROPOF 12:45 | PROVIDERS: PCP Nurse Practitioner Family; Visit Provider Nurse Practitioner Family | DX: R73.03 Prediabetes (principal) | CPT/HCPCS: 83036 ==

== ENCOUNTER 2023-12-14 11:37 | Emergency (ER) | payer BC, SELFPAY ==
[2023-12-14] VITALS (7 sets, daily range): BP systolic 124–144; BP diastolic 73–91; PULSE 57–76; RESP 15–16; TEMP 36.6; O2SAT 95–98; BMI 32.5
--- NOTE | 2023-12-14 11:42 | HMH.EDGENADL ---
Discharge Plan Disposition Patient Disposition: Home, Self-Care Condition: Good Prescriptions Prescriptions: New tamsulosin 0.4 mg capsule 0.4 mg PO DAILY 30 Days Qty: 30 0RF ketorolac 10 mg tablet 10 mg PO Q8H PRN (Reason: pain) 10 Days Qty: 14 0RF No Action pantoprazole [Protonix] 40 mg tablet,delayed release (DR/EC) 40 mg PO DAILY Qty: 30 2RF semaglutide (weight loss) 1 mg/0.5 mL pen injector 1 mg SQ WEEKLY Qty: 2 0RF Rx Instructions: administer weeks 9 through 12 of therapy lisinopril 20 mg tablet 20 mg PO DAILY 90 Days Qty: 90 3RF Referrals Follow up/Referrals: Provider,Referral, MD [Referring] - See instructions Activity Restrictions/Add. Instructions Additional Instructions/Restrictions: Your workup today showed that you have a 3 mm kidney stone, based off the symptoms you are describing it sounds like your kidney stone is moved further down and your symptoms have improved. I have prescribed Flomax as well as Toradol. Please take these and follow-up with urologist as needed. Please return with any new or worsening symptoms. Clinical Impressions Clinical Impression: Kidney calculus Instructions Patient Instructions: DI for Kidney Stones Discharge ED Provider: Ric Lopez Adult HPI General Chief complaint: PAIN Stated complaint: kidney stone pain Time Seen by Provider: 12/14/23 11:41 History of Present Illness HPI narrative: Patient presents for a evaluation of acute onset right flank pain that is radiating to his groin, severe, described as sharp. He has had similar symptoms associated with urolithiasis, and frequently passes uroliths. He has required lithotripsy in the past, has never experienced infectious complications. He denies other chronic medical issues or daily medications. His pain is isolated to his right flank. It had been gradual in onset for the past 24 hours however acutely worsened shortly prior to arrival.. Associated symptoms include nonbloody emesis. He has been able to pass flatus. Denies any testicular pain, denies any pain elsewhere. Please note that above description of symptoms, in this electronic medical record under categorization of recalled from ER triage doctor by RN are reflective of an initial nursing assessment, however, is not reflective of my full history and physical exam that was personally taken and clarified. Consequentially, this preceding description of symptoms, which may include the patient's categorized chief complaint in the EMR, do not reflect my personal clinical impression, and the ultimate description of history of present illness and patient stated complaints should be deferred to this section of the note. Unless stated otherwise or congruent with this section of the note, additional signs, symptoms, or incongruence should be interpreted as inaccurate with my clinical impression. Related Data Previous Rx's Medication Instructions Recorded lisinopril 20 mg tablet 20 mg PO DAILY blood pressure 90 09/23/23 days #90 tabs pantoprazole 40 mg tablet,delayed 40 mg PO DAILY #30 tabs 11/05/23 release (Protonix) semaglutide (weight loss) 1 mg/0.5 1 mg (0.5 mL) SQ WEEKLY Weight 11/26/23 mL subcutaneous pen injector loss #2 mL ketorolac 10 mg tablet 10 mg PO Q8H PRN pain 10 days #14 12/14/23 tabs tamsulosin 0.4 mg capsule 0.4 mg PO DAILY 30 days #30 caps 12/14/23 Allergies Allergy/AdvReac Type Severity Reaction Status Date / Time No Known Allergies Allergy Verified 11/21/23 09:58 [facility] Disclaimer: The information contained in this section may have been updated after the patient was seen, as this information can be updated by other users. Medical History (Updated 12/14/23 @ 14:39 by Ric Lopez MD) Hypertension Surgical History History of uvulopalatopharyngoplasty Hx of knee surgery Social History Smoking Status: Never smoker alcohol intake: never substance use type: denies use current occupational status: employed Travel in the last 8 weeks: None household members: spouse housing: house current occupational exposures/hazards: No caffeine: No ROS Obtained: Yes Systems reviewed as appropriate & no additional complaints except as documented As per HPI Physical Exam General General appearance: alert and in distress Head Head exam: atraumatic and normocephalic Eye Eye exam: Present normal appearance Neck Neck exam: Present normal inspection Chest Chest inspection: Present normal inspection and symmetric chest wall rise Respiratory Respiratory exam: Present normal lung sounds bilaterally; Absent respiratory distress Cardiovascular Cardiovascular exam: Present regular rate and normal rhythm Abdominal Exam Abdominal exam: Present soft Abdominal tenderness: Present RLQ Neurological Exam Neurological exam: Present alert and oriented X3 Psychiatric Psychiatric exam: Present normal affect and normal mood Skin Skin exam: Present warm and dry Medical Decision Making Medical Records Medical records reviewed: Yes I reviewed the patient's medical records. Jose Inquiry Pt receiving controlled substance: No Vital Signs: 12/14/23 11:38 12/14/23 12:36 12/14/23 12:43 Temperature 97.9 F Temperature Source Oral Pulse Rate 63 57 L Pulse Rate [Left Radial] 74 Respiratory Rate 15 15 Blood Pressure 144/80 H Blood Pressure [Right Arm] 144/81 H Blood Pressure Mean [Right Arm] 102 02 Sat by Pulse Oximetry 97 96 98 Oxygen Delivery Method Room Air Room Air Room Air 12/14/23 13:01 12/14/23 13:31 12/14/23 14:01 Temperature Temperature Source Pulse Rate 71 76 62 Pulse Rate [Left Radial] Respiratory Rate Blood Pressure 126/78 124/73 132/74 Blood Pressure [Right Arm] Blood Pressure Mean [Right Arm] 02 Sat by Pulse Oximetry 98 95 96 Oxygen Delivery Method Room Air 12/14/23 14:52 Temperature 97.9 F Temperature Source Pulse Rate 75 Pulse Rate [Left Radial] Respiratory Rate 16 Blood Pressure 128/91 H Blood Pressure [Right Arm] Blood Pressure Mean [Right Arm] 02 Sat by Pulse Oximetry Oxygen Delivery Method Room Air Lab Data Lab Results 12/14/23 11:41: Urine Color Yellow, Urine Appearance Clear, Urine pH 6.5, Ur Specific Taylor 1.025, Urine Protein Negative, Urine Glucose (UA) Negative, Urine Ketones Negative, Urine Blood 3+, Urine Nitrate Negative, Urine Bilirubin Negative, Urine Urobilinogen 0.2, Ur Leukocyte Esterase Negative, Urine RBC 50-100, Urine WBC 3-5, Urine Bacteria 1+, Urine Mucus Trace 12/14/23 11:58: WBC 9.8, RBC 5.19, Hgb 15.0, Hct 47.2, MCV 91.1, MCH 28.9, MCHC 31.7 L, RDW 13.6, Plt Count 304, MPV 8.8, Neut % (Auto) 60.5, Lymph % (Auto) 29.7, [place] % (Auto) 6.6, Eos % (Auto) 2.2, Baso % (Auto) 1.1, Neut # (Auto) 6.0, Lymph # (Auto) 2.9, [place] # (Auto) 0.6, Eos # (Auto) 0.2, Baso # (Auto) 0.1, Sodium 141, Potassium 3.9, Chloride 108 H, Carbon Dioxide 27, Anion Gap 9.9, BUN 13, Creatinine 1.30 H, Estimated Creat Clear 108, Estimated GFR 59, Est GFR ( Amer) 72, Glucose 115 H, Calcium 9.8, Total Bilirubin 0.8, AST 33, ALT 35, Alkaline Phosphatase 83, Total Protein 7.1, Albumin 4.3, Globulin 2.8, Albumin/Globulin Ratio 1.5 12/14/23 11:58 12/14/23 11:58 Orders (Tests/Meds): ED MEDICATIONS Discontinued Medications Generic Name Dose Route Start Last Admin Trade Name Freq PRN Reason Stop Dose Admin Hydromorphone HCl 1 mg 12/14/23 12:09 12/14/23 12:28 Hydromorphone 4 Mg/Ml Syringe IV 12/14/23 12:10 Not Given ONCE ONE Lactated Ringer's 1,000 mls @ 999 mls/hr 12/14/23 11:45 12/14/23 11:58 Lactated Ringer's 1000 Ml Bag IV 12/14/23 12:45 999 mls/hr .Q1H1M ONE Administration Ketorolac Tromethamine 15 mg 12/14/23 11:45 12/14/23 12:00 Ketorolac 30mg/Ml Vial IV 12/14/23 11:46 15 mg ONCE ONE Administration Morphine Sulfate 4 mg 12/14/23 11:45 12/14/23 12:00 Morphine 4mg/Ml Syringe IV 12/14/23 11:46 4 mg ONCE ONE Administration Ondansetron HCl 4 mg 12/14/23 11:45 12/14/23 12:00 Ondansetron 4mg/2ml Vial IV 12/14/23 11:46 4 mg ONCE ONE Administration ORDERS Category Date Time Status CT abdomen pelvis wo con Stat Cat Scan 12/14/23 12:10 Completed CBC w/Auto Diff [Complete Blood Count Auto Diff] Stat Lab 12/14/23 11:58 Completed CMP [Comprehensive Metabolic Panel] Stat Lab 12/14/23 11:58 Completed Urinalysis and Microscopic Stat Lab 12/14/23 11:41 Completed Urine Culture Stat Micro 12/14/23 11:46 Received Medical Decision Narrative: Patient with history and exam per above presenting for evaluation of right flank and right lower quadrant pain Diagnoses considered include urolithiasis, hydronephrosis, renal infarction although patient has no appreciable risk factors, dissection thought to be lower likelihood based on clinical presentation and does not warrant further workup at this time. ED workup and treatment included: ED MEDICATIONS Discontinued Medications Generic Name Dose Route Start Last Admin Trade Name Maldonado PRN Reason Stop Dose Admin Hydromorphone HCl 1 mg 12/14/23 12:09 12/14/23 12:28 Hydromorphone 4 Mg/Ml Syringe IV 12/14/23 12:10 Not Given ONCE ONE Lactated Ringer's 1,000 mls @ 999 mls/hr 12/14/23 11:45 12/14/23 11:58 Lactated Ringer's 1000 Ml Bag IV 12/14/23 12:45 999 mls/hr .Q1H1M ONE Administration Ketorolac Tromethamine 15 mg 12/14/23 11:45 12/14/23 12:00 Ketorolac 30mg/Ml Vial IV 12/14/23 11:46 15 mg ONCE ONE Administration Morphine Sulfate 4 mg 12/14/23 11:45 12/14/23 12:00 Morphine 4mg/Ml Syringe IV 12/14/23 11:46 4 mg ONCE ONE Administration Ondansetron HCl 4 mg 12/14/23 11:45 12/14/23 12:00 Ondansetron 4mg/2ml Vial IV 12/14/23 11:46 4 mg ONCE ONE Administration ORDERS Category Date Time Status CT abdomen pelvis wo con Stat Cat Scan 12/14/23 12:10 Completed CBC w/Auto Diff [Complete Blood Count Auto Diff] Stat Lab 12/14/23 11:58 Completed CMP [Comprehensive Metabolic Panel] Stat Lab 12/14/23 11:58 Completed Urinalysis and Microscopic Stat Lab 12/14/23 11:41 Completed Urine Culture Stat Micro 12/14/23 11:46 Received Labs were independently interpreted by me, significant for no evidence of acute cystitis Imaging was independently visualized and interpreted by me, significant for right-sided urolith, 3mm. Upon repeat evaluation patient reports marked improvement of symptoms. He feels as though his the stone has moved more distally in his urinary tract. My clinical impression at this time is most consistent with urolithiasis, without acute complication at this time with the exception of hydronephrosis appreciated on CT imaging however patient subsequently reported change in clinical status and feels that the stone is moved into the bladder. I discussed my clinical impression with patient and answered all questions. At this time, the evidence for any other entities in the differential is insufficient to warrant any further testing or ED observation. This was explained to the patient. The patient was advised that persistent or worsening symptoms require further evaluation. I confirmed the patient's understanding of this discussion. Critical Care Critical Care Time Critical Care Time: No
[2023-12-14] MEDS: LACTATED RINGERS 1000ML 1,000 ML 999 ML IV (11:58)
[2023-12-14] MEDS: MORPHINE 4MG/ML SYRINGE 4 MG IV (12:00)
[2023-12-14] MEDS: ONDANSETRON 4MG/2ML VIAL 4 MG IV (12:00)
[2023-12-14] MEDS: KETOROLAC 30MG/ML VIAL 15 MG IV (12:00)
[2023-12-14 12:09] LABS: Microscopic, Urine URINE MICROSCOPIC (MICROSCOPIC)
--- NOTE | 2023-12-14 12:10 | CT_ITS ---
PROCEDURE INFORMATION: Exam: CT Abdomen And Pelvis Without Contrast Exam date and time: 12/14/2023 12:32 PM Age: 48 years old Clinical indication: Abdominal pain; Flank; Right lower quadrant (rlq); Additional info: R flank pain, HX urolithiasis TECHNIQUE: Imaging protocol: Computed tomography of the abdomen and pelvis without contrast. Radiation optimization: All CT scans at this facility use at least one of these dose optimization techniques: automated exposure control; mA and/or kV adjustment per patient size (includes targeted exams where dose is matched to clinical indication); or iterative reconstruction. COMPARISON: MR CRISTELA BLAKE CON 04/08/2023 1:24 PM FINDINGS: Liver: Normal. No mass. Gallbladder and bile ducts: Normal. No calcified stones. No ductal dilation. Pancreas: Normal. No ductal dilation. Spleen: Normal. No splenomegaly. Adrenal glands: Normal. No mass. Kidneys and ureters: Mild right obstructive uropathy with calculus in the mid right ureter measuring 3 mm. Nonobstructing renal calculi bilaterally. No left hydronephrosis. Rounded lesion in the midpole left kidney with peripheral calcification measures 1.5 cm. Not cystic density on current study, additional workup with ultrasound or MRI recommended. Stomach and bowel: Unremarkable. No obstruction. No mucosal thickening. Appendix: No evidence of appendicitis. Intraperitoneal space: Unremarkable. No free air. No significant fluid collection. Vasculature: Unremarkable. No abdominal aortic aneurysm. Lymph nodes: Unremarkable. No enlarged lymph nodes. Urinary bladder: Unremarkable as visualized. Reproductive: Unremarkable as visualized. Bones/joints: Unremarkable. No acute fracture. Soft tissues: Unremarkable. IMPRESSION: 1. Mild right obstructive uropathy with calculus in the mid right ureter measuring 3 mm. 2. Nonobstructing renal calculi bilaterally. 3. Rounded lesion in the midpole left kidney with peripheral calcification measures 1.5 cm. Not cystic density on current study, additional workup with ultrasound or MRI recommended. COMMENTS: Consistent with the [employer]'s Incidental Findings Committee white paper (J Am Maritza Radiol 2018): Any incidental renal lesion less than 1 cm or classified as too small to characterize, or any incidental cystic renal lesion characterized as simple-appearing, is likely benign. No follow-up imaging is recommended for these lesions per consensus recommendations based on imaging criteria.
[2023-12-14 12:11] LABS: Basophils # 0.1 K/mm3 (0-0.2); Basophils % 1.1 % (0.1-2.0); Eosinophils # 0.2 K/mm3 (0.0-0.4); Eosinophils % 2.2 % (0.1-12.0); Hematocrit 47.2 % (42.0-52.0); Lymphocytes # 2.9 K/mm3 (0.7-4.5); Lymphocytes % 29.7 % (10-50); Mean Corpuscular HGB Conc 31.7 g/dL (31.8-35.4); Mean Corpuscular Hemoglobin 28.9 pg (27.0-31.2); Mean Corpuscular Volume 91.1 fl (80-94); Mean Platelet Volume 8.8 fl (7.4-10.4); Monocytes # 0.6 K/mm3 (0.1-1.0); Monocytes % 6.6 % (1.7-9.3); Neutrophils % 60.5 % (37.0-80.0); Platelet Count 304 K/mm3 (142-424); Red Blood Count 5.19 M/mm3 (4.60-6.20); Red Cell Distribution Width 13.6 % (11.5-17.5); White Blood Count 9.8 K/mm3 (4.8-10.8)
[2023-12-14 12:13] LABS: Appearance,Urine CLEAR (Clear); Bilirubin,Urine Negative (Negative); Blood, Urine 3+ (Negative); Color,Urine YELLOW (Yellow); Glucose,Urine (UA) Negative (Negative); Ketones,Urine Negative (Negative); Leukocyte Esterase,Urine Negative (Negative); Nitrate,Urine Negative (Negative); PH,Urine 6.5 (5.0-8.5); Protein,Urine Negative (Negative); Specific Gravity, Urine 1.025 (1.005-1.030); Urobilinogen,Urine 0.2 EU/dl (0.2)
[2023-12-14 12:18] LABS: Chloride 108 mmol/L (98-107); Potassium 3.9 mmoL/L (3.5-5.1); Sodium 141 mmol/L (136-145)
[2023-12-14 12:20] LABS: Alanine Aminotransferase 35 U/L (12-78); Aspartate Amino Transferase 33 U/L (17-59); Blood Urea Nitrogen 13 mg/dl (9-20); Creatinine Clearance Estimated 108 mL/min (50-200); Estimated Glomerular Filt Rate 59 ml/min (>60); GFR (African American) 72 ML/MIN (>60)
[2023-12-14 12:21] LABS: Albumin Level 4.3 g/dl (3.5-5.0); Albumin/Globulin Ratio 1.5 (1.1-1.8); Alkaline Phosphatase 83 U/L (38-126); Anion Gap 9.9 mEq/L (5-15); Bilirubin,Total 0.8 mg/dl (0.2-1.3); Calcium 9.8 mg/dl (8.4-10.2); Carbon Dioxide 27 mmol/L (22.0-30.0); Globulin 2.8 g/dL (1.3-3.2); Glucose 115 mg/dl (74-100); Total Protein,Serum 7.1 g/dl (6.3-8.2)
--- NOTE | 2023-12-14 12:36 | PC.NURSE ---
pt back to room
[2023-12-14 13:23] LABS: Bacteria,Urine 1+ /lpf; Mucus,Urine Trace /lpf; RBC,Urine 50-100 #/hpf (0-3)
--- NOTE | 2023-12-14 13:27 | PC.NURSE ---
spoke with radiology about scans, reports that they are assigned at this time
--- NOTE | 2023-12-14 13:39 | PC.NURSE ---
Rounded on patient, no needs voiced at this time.
--- NOTE | 2023-12-14 14:18 | PC.NURSE ---
pt to restroom thought he might be passing stone
== END 2023-12-14 14:53 | disposition home or self-care (01) ==
PROVIDERS: Emergency Provider Emergency Medicine; PCP Nurse Practitioner Family
DX: R10.31 Right lower quadrant pain (principal); N20.2 Calculus of kidney with calculus of ureter; I10 Essential (primary) hypertension
CPT/HCPCS: 74176; 80053; 81001; 85025; 87086; 96361; 96374; 96375; 99285; J2405

== ENCOUNTER → 2024-01-23 08:29 | Outpatient (CLI) | payer BC, SELFPAY | LOC: SL 08:30 | PROVIDERS: PCP Nurse Practitioner Family; Visit Provider Nurse Practitioner Family | DX: G47.33 Obstructive sleep apnea (adult) (pediatric) (principal); G47.36 Sleep related hypoventilation in conditions classified elsewhere | CPT/HCPCS: G0399 ==

== ENCOUNTER 2024-04-04 09:53 | Emergency (ER) | payer BC, SELFPAY ==
[2024-04-04 10:00] VITALS: BP 153/95; PULSE 80; RESP 18; TEMP 36.7; O2SAT 96; BMI 32.4
--- NOTE | 2024-04-04 10:19 | EXP.UTC ---
Discharge Plan Disposition Patient Disposition: Home, Self-Care Condition: Good Prescriptions Prescriptions: New dicyclomine 10 mg capsule 10 mg PO TID PRN (Reason: abdominal pain/cramping) Qty: 9 0RF ondansetron 4 mg tablet,disintegrating 4 mg PO Q8H PRN (Reason: nausea and vomiting) Qty: 10 0RF No Action semaglutide (weight loss) 1 mg/0.5 mL pen injector 1 mg SQ WEEKLY Qty: 2 0RF Rx Instructions: administer weeks 9 through 12 of therapy pantoprazole [Protonix] 40 mg tablet,delayed release (DR/EC) 40 mg PO DAILY Qty: 30 2RF lisinopril 20 mg tablet 20 mg PO DAILY 90 Days Qty: 90 3RF Referrals Follow up/Referrals: Chantale Garcia APRN [Primary Care Provider] - See instructions Activity Restrictions/Add. Instructions Additional Instructions/Restrictions: Drink extra fluids with and between meals. If you have difficulty drinking, try very small amounts of water or suck on ice chips. ? Avoid fruit juices, as these do not replace minerals and can actually increase diarrhea. ? Children and adults can use sports drinks to replenish electrolytes. Younger children and infants should use products formulated for children, like oral rehydration solutions. ? Eat food in small amounts and let your stomach recover. ? Get lots of rest. You may feel tired or weak. ? No greasy or fried foods for the next 24-48 hours BRAT diet Bananas Rice Apples and [place] ? Make sure to drink plenty of liquids ? Return if needed ? Straight to ER if any life threatening symptoms ? Zofran as prescribed ? You was given an outpatient order for diarrhea panel, please collect specimen and bring back to outpatient lab then call back to the [facility] or follow up with family doctor for results ? Follow up with family doctor in the next 48-72 hours if no improvement or any worsening of symptoms Clinical Impressions Clinical Impression: Diarrhea, Nausea Instructions Patient Instructions: Diarrhea, Dicyclomine Discharge ED Provider: Caron Walsh [facility] HPI General Stated complaint: diarrhea, abd cramping Mode of Arrival: Ambulatory Source of Information: Patient Limitations: No Limitations Time Seen by Provider: 04/04/24 10:19 Description of Symptoms (Recalled from Triage Doc. by RN): PATIENT C/O STOMACH CRAMPS, WATERY DIARRHEA, SULFUR BURPS AND TENDERNESS TO LOWER ABDOMEN X 3 DAYS HEENT Symptoms (Recalled from RN notes): No Resp Symptoms (Recalled from RN notes): No Skin Symptoms (Recalled from RN notes): No MS Symptoms (Recalled from RN notes): No Functional Status (Recalled from RN notes): WNL History of Present Illness Provider Complaint: Patient states that he has a hx of IBS States he is also on Ozempic States for the last 3 days he has been having watery diarrhea, sulfa burps and soreness in his lower abdomen thinks it is from where he has been going so much States today he was having cramping and still having watery diarrhea so he came in wanting to get checked to see what may be causing the diarrhea Related Data Previous Rx's Medication Instructions Recorded lisinopril 20 mg tablet 20 mg PO DAILY blood pressure 90 09/23/23 days #90 tabs semaglutide (weight loss) 1 mg/0.5 1 mg (0.5 mL) SQ WEEKLY Weight 11/26/23 mL subcutaneous pen injector loss #2 mL pantoprazole 40 mg tablet,delayed 40 mg PO DAILY #30 tabs 02/11/24 release (Protonix) dicyclomine 10 mg capsule 10 mg PO TID PRN abdominal 04/04/24 pain/cramping #9 caps ondansetron 4 mg disintegrating 4 mg PO Q8H PRN nausea and 04/04/24 tablet vomiting #10 tabs Allergies Allergy/AdvReac Type Severity Reaction Status Date / Time No Known Allergies Allergy Verified 11/21/23 09:58 Worker's Comp Is this a Worker's Comp case?: No [facility] Disclaimer: The information contained in this section may have been updated after the patient was seen, as this information can be updated by other users. Medical History (Updated 04/04/24 @ 10:40 by Caron Walsh APRN) H. pylori infection IBS (irritable bowel syndrome) Hypertension Surgical History History of uvulopalatopharyngoplasty Hx of knee surgery Social History Smoking Status: Never smoker alcohol intake: never substance use type: denies use current occupational status: employed Travel in the last 8 weeks: None household members: spouse housing: house current occupational exposures/hazards: No caffeine: No ROS Obtained: Yes All systems reviewed & no additional complaints except as documented and Yes Systems reviewed as appropriate & no additional complaints except as documented Constitutional Constitutional: Reports system reviewed and no additional complaints, except as documented, Reports as per HPI, Denies body ache, Denies chills, Denies fever(s) and Denies headache(s) ENT Ears, Nose, Mouth, and Throat: Reports system reviewed and no additional complaints, except as documented, Reports as per HPI and Denies headache(s) Cardiovascular Cardiovascular: Reports system reviewed and no additional complaints, except as documented and Reports as per HPI Respiratory Respiratory: Reports system reviewed and no additional complaints, except as documented and Reports as per HPI Gastrointestinal Gastrointestingal: Reports system reviewed and no additional complaints, except as documented, as per HPI, cramping, diarrhea and other (sulfa/foul smelling burps); Denies abdominal pain, coffee ground emesis, hematemesis, hematochezia, melena, nausea or vomiting Musculoskeletal Musculoskeletal: Reports system reviewed and no additional complaints, except as documented and Reports as per HPI Neurologic Neurologic: Denies headache(s) Physical Exam General General appearance: alert and in no apparent distress ENT ENT exam: Present mucous membranes moist Respiratory Respiratory exam: Present normal lung sounds bilaterally; Absent respiratory distress or wheezes Cardiovascular Cardiovascular exam: Present regular rate, normal rhythm and normal heart sounds Abdominal Exam Abdominal exam: Present soft and hyperactive bowel sounds; Absent distention Neurological Exam Neurological exam: Present alert, oriented X3 and normal gait Medical Decision Making Jose Inquiry Pt receiving controlled substance: No Jose was queried for this patient: No Vital Signs: 04/04/24 10:00 Temperature 98.1 F Temperature Source Oral Pulse Rate [Left Brachial] 80 Respiratory Rate 18 Blood Pressure [Left Arm] 153/95 H Blood Pressure Mean [Left Arm] 114 Blood Pressure Source [Left Arm] Automatic Cuff Blood Pressure Position [Left Arm] Sitting 02 Sat by Pulse Oximetry 96 Oxygen Delivery Method Room Air Medical Decision Narrative: Discussed with patient about transfer to the ED for further evaluation and imaging (Ct ) if needed and he declined agreed to collect stool sample and will follow up with his PCP tomorrow patient given strict return precautions
[2024-04-04 10:42] VITALS: BP 153/95; PULSE 80; RESP 18; TEMP 36.7; O2SAT 96
[2024-04-04 13:55] LABS: Adenovirus F 40/41, stool Not Detected (NotDetected); Astrovirus Not Detected (NotDetected); Campylobacter Not Detected (NotDetected); Clostridium Difficile A/B, PCR Not Detected (NotDetected); Cryptosporidium Not Detected (NotDetected); Cyclospora Cayetanesis Not Detected (NotDetected); Entamoeba histolytica Not Detected (NotDetected); Enteroaggregative E coli Not Detected (NotDetected); Enteropathogenic E coli Not Detected (NotDetected); Enterotoxigenic E coli Not Detected (NotDetected); Giardia lamblia Not Detected (NotDetected); Norovirus Not Detected (NotDetected); Plesimonas Shigalloides, PCR Not Detected (NotDetected); Rotavirus A Not Detected (NotDetected); Salmonella, PCR Not Detected (NotDetected); Sapovirus Not Detected (NotDetected); Shiga-like toxin E coli Not Detected (NotDetected); Shigella Enterovasive E coli Not Detected (NotDetected); Vibrio Cholerae Not Detected (NotDetected); Vibrio, PCR Not Detected (NotDetected); Yersinia Entercolitica, PCR Not Detected (NotDetected)
== END 2024-04-04 10:46 | disposition home or self-care (01) ==
PROVIDERS: Emergency Provider Nurse Practitioner; PCP Nurse Practitioner Family
DX: R10.819 Abdominal tenderness, unspecified site (principal); R25.2 Cramp and spasm; R19.7 Diarrhea, unspecified; R11.0 Nausea
CPT/HCPCS: 87507; 99212; 99214; G0463

== ENCOUNTER 2024-06-21 09:45 | Outpatient (CLI) | payer BC, SELFPAY ==
[2024-06-21 10:18] LABS: Basophils # 0.1 K/mm3 (0-0.2); Basophils % 0.9 % (0.1-2.0); Eosinophils # 0.2 K/mm3 (0.0-0.4); Eosinophils % 3.7 % (0.1-12.0); Hemoglobin 14.8 g/dL (14.1-18.0); Lymphocytes # 1.9 K/mm3 (0.7-4.5); Lymphocytes % 31.3 % (10-50); Mean Corpuscular HGB Conc 33.5 g/dL (31.8-35.4); Mean Corpuscular Hemoglobin 29.2 pg (27.0-31.2); Mean Corpuscular Volume 87.1 fl (80-94); Mean Platelet Volume 8.6 fl (7.4-10.4); Monocytes # 0.5 K/mm3 (0.1-1.0); Monocytes % 7.6 % (1.7-9.3); Neutrophils # 3.4 K/mm3 (1.8-7.8); Neutrophils % 56.4 % (37.0-80.0); Platelet Count 210 K/mm3 (142-424); Red Blood Count 5.05 M/mm3 (4.60-6.20); Red Cell Distribution Width 14.2 % (11.5-17.5)
[2024-06-21 10:24] LABS: Hemoglobin A1C 6.2 % (4.0-6.0)
[2024-06-21 10:28] LABS: Alanine Aminotransferase 32 U/L (12-78); Albumin Level 3.9 g/dl (3.5-5.0); Albumin/Globulin Ratio 1.6 (1.1-1.8); Alkaline Phosphatase 60 U/L (38-126); Anion Gap 6.9 mEq/L (5-15); Aspartate Amino Transferase 26 U/L (17-59); Bilirubin,Total 0.6 mg/dl (0.2-1.3); Blood Urea Nitrogen 9 mg/dl (9-20); Calcium 9.1 mg/dl (8.4-10.2); Carbon Dioxide 29 mmol/L (22.0-30.0); Chloride 106 mmol/L (98-107); Chol/HDL Ratio 6.3 (1-3.5); Cholesterol 213 mg/dl (140-200); Estimated Glomerular Filt Rate 104 ml/min (>60); GFR (African American) 125 ML/MIN (>60); Globulin 2.4 g/dL (1.3-3.2); Glucose 110 mg/dl (74-100); HDL Cholesterol 34 mg/dl (40-60); Magnesium 1.6 mg/dl (1.6-2.3); Potassium 3.9 mmoL/L (3.5-5.1); Sodium 138 mmol/L (136-145); Total Protein,Serum 6.3 g/dl (6.3-8.2); Triglycerides 223 mg/dl (30-150); VLDL Cholesterol 45 mg/dL (0-40)
[2024-06-21 10:39] LABS: Direct LDL Cholesterol 132.54 mg/dL (100-129)
[2024-06-21 10:47] LABS: 25-OH Vitamin D, Total 30.8 ng/mL (30-100)
[2024-06-21 11:16] LABS: Vitamin B12 648 pg/mL (239-931)
[2024-06-21 11:49] LABS: Ferritin 56.3 ng/ml (17.9-464)
[2024-06-27 16:09] LABS: Free Testosterone (Direct) 6.4 pg/mL (6.8-21.5); Testosterone, Total, LC/MS 336.8 ng/dL (264.0-916.0)
== END 2024-06-21 23:59 | disposition home or self-care (01) ==
LOC: LAB 09:46
PROVIDERS: PCP Nurse Practitioner Family; Visit Provider Nurse Practitioner Family
DX: R14.0 Abdominal distension (gaseous) (principal); R10.9 Unspecified abdominal pain; R53.83 Other fatigue; R11.0 Nausea; R73.03 Prediabetes; I10 Essential (primary) hypertension
CPT/HCPCS: 80053; 80061; 82306; 82607; 82626; 82728; 83036; 83735; 85025; 87177

== ENCOUNTER 2024-07-16 09:59 | Outpatient (CLI) | payer BC, SELFPAY ==
[2024-07-16 17:39] LABS: Free T4 (Free Thyroxine) 0.78 ng/dl (0.78-2.19)
[2024-07-16 20:47] LABS: T4 (Thyroxine) 7.3 ug/dl (5.53-11.0)
[2024-07-16 21:00] LABS: Thyroid Stimulating Hormone 2.89 uIU/mL (0.465-4.68)
[2024-07-18 10:10] LABS: Thyroid Peroxidase Antibodies 18 IU/mL (0-34)
[2024-07-19 16:13] LABS: Thyroglobulin Level <1.0 IU/mL (0.0-0.9)
[2024-07-20 01:13] LABS: Pancreatic Elastase, Fecal >800 (>200)
== END 2024-07-16 23:59 | disposition home or self-care (01) ==
PROVIDERS: Nurse Practitioner Family; PCP Nurse Practitioner Family; Visit Provider Nurse Practitioner Family
DX: E03.9 Hypothyroidism, unspecified (principal); R14.3 Flatulence; R14.1 Gas pain; R14.2 Eructation; K58.0 Irritable bowel syndrome with diarrhea; R14.0 Abdominal distension (gaseous)
CPT/HCPCS: 82656; 84436; 84439; 84443; 84481; 86376; 86800

== ENCOUNTER 2024-07-19 07:14 | Outpatient (CLI) | payer BC, SELFPAY ==
--- NOTE | 2024-07-19 07:21 | US_ITS ---
PROCEDURE INFORMATION: Exam: US Abdomen, Limited; Right Upper Quadrant Exam date and time: 07/19/2024 7:31 AM Age: 48 years old Clinical indication: Abdominal pain; Additional info: Nausea, upper abdominal pain and bloating TECHNIQUE: Imaging protocol: Real time ultrasound of the abdomen with image documentation. Limited exam focused on the right upper quadrant. COMPARISON: CT ABDOMEN PELVIS WO CON 12/14/2023 12:32 PM FINDINGS: Liver: There is a diffuse increase in hepatic parenchymal echogenicity, consistent with fatty infiltration.. Gallbladder: Gallbladder contains polyps and sludge. Gallbladder wall 3.5 mm. Biliary ducts: Common bile duct 4.6 mm Pancreas: Normal pancreas Right kidney: Right kidney 10.5 cm. No hydronephrosis. Calculus in the right kidney 5-6 mm. Right renal cortex 1 cm. Portal venous: Hepatopetal flow in the portal vein IMPRESSION: 1. Gallbladder contains polyps and sludge. Gallbladder wall 3.5 mm. 2. Calculus in the right kidney 5-6 mm. No hydronephrosis 3. There is a diffuse increase in hepatic parenchymal echogenicity, consistent with fatty infiltration..
== END 2024-07-19 23:59 | disposition home or self-care (01) ==
LOC: RAD 07:15
PROVIDERS: PCP Nurse Practitioner Family; Visit Provider Nurse Practitioner Family
DX: R14.0 Abdominal distension (gaseous) (principal); R10.9 Unspecified abdominal pain; R11.0 Nausea
CPT/HCPCS: 76705

== ENCOUNTER 2024-11-15 07:45 | Outpatient (CLI) | payer BC, SELFPAY ==
--- NOTE | 2024-11-15 08:12 | MR_ITS ---
FINAL REPORT TECHNIQUE: Multiplanar MRI images with and without contrast of the right knee. CLINICAL HISTORY: right knee instability COMPARISON: 05/08/2020 FINDINGS: Articular cartilage: Unremarkable Bone marrow: Unremarkable Joint fluid: Unremarkable Menisci: There is a small complex tear of the posterior horn of the medial meniscus, best seen in sagittal proton density images #18 through 20. The lateral meniscus is intact. Ligaments: Cruciate and collateral ligaments are unremarkable in appearance. Tendons: Quadriceps and patellar tendons are unremarkable. IMPRESSION: Small complex tear of the posterior horn of the medial meniscus as described, lateral meniscus intact. Reviewed, Interpreted and Dictated by Jamison Marquez MD Transcribed by Christy Castillo Authenticated and [facility]
[2024-11-15] MEDS: GADOTERIDOL INJ 20ML SYRINGE 20 ML IV (08:56)
[2024-11-15] MEDS: GADOTERIDOL INJ 10ML SYRINGE 3 ML IV (08:56)
[2024-11-15] MEDS: SODIUM CHLORIDE 0.9% 10ML SYR (RAD ONLY) 10 ML IV (08:57)
== END 2024-11-15 23:59 | disposition home or self-care (01) ==
LOC: RAD 07:46
PROVIDERS: PCP Nurse Practitioner Family; Visit Provider Nurse Practitioner Family
DX: M25.561 Pain in right knee (principal); M25.361 Other instability, right knee
CPT/HCPCS: 73723; A9576

== ENCOUNTER 2024-12-08 08:49 | Outpatient (CLI) | payer BC, SELFPAY ==
--- NOTE | 2024-12-08 09:00 | XR_ITS ---
FINAL REPORT CLINICAL HISTORY: rt medial knee pain since July, previous MR showed medial meniscus tear FINDINGS: AP, lateral and oblique views of the right knee were obtained. There is no prior exam for comparison. There is no acute osseous abnormality of the right knee. No evidence of dislocation. The joint space is preserved. The soft tissues are normal. There is no significant joint effusion. IMPRESSION: No acute osseous abnormality of the right knee. Reviewed, Interpreted and Dictated by Missy Patton MD Transcribed by Rebecca Obando Authenticated and [facility]
== END 2024-12-08 23:59 | disposition home or self-care (01) ==
LOC: RAD 08:50
PROVIDERS: PCP Nurse Practitioner Family; Visit Provider Physician Assistant
DX: M25.361 Other instability, right knee (principal)
CPT/HCPCS: 73562

== ENCOUNTER 2024-12-12 13:44 | Emergency (ER) | payer BC, SELFPAY ==
--- NOTE | 2024-12-12 13:49 | ED_ITS ---
Discharge Plan Disposition Patient Disposition: Home, Self-Care Condition: Good Prescriptions Prescriptions: New ondansetron 4 mg tablet,disintegrating 4 mg PO QID PRN (Reason: nausea and vomiting) Qty: 10 0RF tamsulosin 0.4 mg capsule 0.4 mg PO HS Qty: 14 0RF ketorolac 10 mg tablet 10 mg PO Q6H PRN (Reason: pain) Qty: 10 0RF Rx Instructions: maximum total duration of 5 days from all oral, intranasal, or parenteral formulations oxycodone 5 mg tablet 5 mg PO Q8H PRN (Reason: pain) Qty: 7 0RF No Action azelastine 137 mcg (0.1 %) spray,non-aerosol 2 spray intranasal BID Qty: 30 3RF Rx Instructions: administer into each nostril metformin 500 mg tablet extended release 24 hr 500 mg PO DAILY Qty: 30 2RF lisinopril 20 mg tablet 20 mg PO BID Qty: 180 3RF pantoprazole 40 mg tablet,delayed release (DR/EC) 40 mg PO DAILY 90 Days Qty: 90 3RF montelukast 10 mg tablet See Rx Instructions .ROUTE .COMPLEX Qty: 30 2RF Dose Instruction: Take 1 tablet by mouth once daily Rx Instructions: Take 1 tablet by mouth once daily Referrals Follow up/Referrals: Chantale Garcia APRN [Primary Care Provider] - See instructions Benjamin Reese MD [Referring] - See instructions Activity Restrictions/Add. Instructions Additional Instructions/Restrictions: As we discussed I have sent in tamsulosin Toradol and oxycodone to your pharmacy. I have given you the name of Dr. Benjamin Reese urology in [place]. If you have the inability to tolerate oral intake increasing pain continued new or worsening signs or symptoms follow-up with your PCP return to the ER as needed. Clinical Impressions Clinical Impression: Ureterolithiasis Print Language Print Language: Arabic Discharge ED Provider: Caroline Robison General Adult HPI <YESENIA Philippe - Last Filed: 12/12/24 15:32> General Chief complaint: PAIN Stated complaint: Kidney Stones Time Seen by Provider: 12/12/24 13:49 History of Present Illness HPI narrative: Patient presents for evaluation of left flank pain. Patient reports that he has a longstanding history greater than 20 years of recurrent kidney stones. Patient states that he has been having pain for several days and believes he is already passed 1 stone but has now had increasing left flank pain with nausea that is unrelenting. He reports no vomiting chest pain shortness of breath fever chills hemoptysis hematochezia melena diarrhea. Related Data Previous Rx's ?Medication ?Instructions ?Recorded azelastine 137 mcg (0.1 %) nasal 2 spray intranasal BID #30 mL 09/03/24 spray lisinopril 20 mg tablet 20 mg PO BID #180 tabs 11/05/24 metformin 500 mg tablet,extended 500 mg PO DAILY #30 tabs 11/05/24 release 24 hr pantoprazole 40 mg tablet,delayed 40 mg PO DAILY 90 days #90 tabs 11/26/24 release montelukast 10 mg tablet See Rx Instructions .Route 12/03/24 .COMPLEX #30 tabs ketorolac 10 mg tablet 10 mg PO Q6H PRN pain #10 tabs 12/12/24 ondansetron 4 mg disintegrating 4 mg PO QID PRN nausea and 12/12/24 tablet vomiting #10 tabs oxycodone 5 mg tablet 5 mg PO Q8H PRN pain #7 tabs 12/12/24 tamsulosin 0.4 mg capsule 0.4 mg PO HS #14 caps 12/12/24 Allergies Allergy/AdvReac Type Severity Reaction Status Date / Time No Known Allergies Allergy Verified 12/09/24 10:04 [facility] <YESENIA Philippe - Last Filed: 12/12/24 15:32> [facility] Disclaimer: The information contained in this section may have been updated after the patient was seen, as this information can be updated by other users. Medical History H. pylori infection IBS (irritable bowel syndrome) Hypertension Surgical History History of uvulopalatopharyngoplasty Hx of knee surgery Family History Other Hypertension Social History Smoking Status: Never smoker alcohol intake: never substance use type: denies use current occupational status: employed Travel in the last 8 weeks: None household members: spouse housing: house current occupational exposures/hazards: No caffeine: No Have you lived/traveled outside US in past 30 days?: No Contact w/someone who lives/traveled outside US past 30 days?: No Exposure to someone with infectious disease in past 14 days?: No Do you have a fever (greater than 100.4 F or 38 C)?: No Have you tested positive for COVID-19: No Exposed to someone with COVID-19 in past 14 days?: No Do you have a sore throat?: No Do you have a cough?: No Do you have any weakness?: No Do you have any diarrhea?: No Are you experiencing any unusual bleeding?: No Do you have any muscle aches/pain?: Yes Do you have any abdominal pain?: No Are you experiencing loss of taste or smell?: No Other Medical History Have you received the Flu Vaccine for this season: No Have you received the Pneumonia Vaccine: No <YESENIA Philippe - Last Filed: 12/12/24 15:32> ROS Obtained: Yes Systems reviewed as appropriate & no additional complaints except as documented Physical Exam <YESENIA Philippe - Last Filed: 12/12/24 15:32> General General appearance: alert and in no apparent distress Respiratory Respiratory exam: Present normal lung sounds bilaterally Cardiovascular Cardiovascular exam: Present regular rate Neurological Exam Neurological exam: Present alert and oriented X3 Medical Decision Making <YESENIA Philippe - Last Filed: 12/12/24 15:32> Medical Records Medical records reviewed: Yes I reviewed the patient's medical records. Screening: Per USPSTF and CDC recommendations, given the prevalence of disease in our region, it is our hospital?s policy to screen for HIV and viral Hepatitis for all patients aged 18 and over and those with ongoing risk factors. Jose Inquiry Pt receiving controlled substance: No Vital Signs: 12/12/24 13:50 12/12/24 13:52 12/12/24 14:49 Temperature 98.1 F Temperature Source Oral Pulse Rate 79 73 Pulse Rate [Right] 80 Respiratory Rate 16 Blood Pressure 126/64 169/92 H Blood Pressure [Right Arm] 169/92 H Blood Pressure Mean [Right Arm] 117 Blood Pressure Source Blood Pressure Source [Right Arm] Automatic Cuff Blood Pressure Position Blood Pressure Position [Right Arm] Sitting 02 Sat by Pulse Oximetry 97 97 Oxygen Delivery Method Room Air Room Air 12/12/24 15:28 12/12/24 15:31 Temperature 98.3 F Temperature Source Oral Pulse Rate 66 72 Pulse Rate [Right] Respiratory Rate 16 Blood Pressure 135/73 135/73 Blood Pressure [Right Arm] Blood Pressure Mean [Right Arm] Blood Pressure Source Automatic Cuff Blood Pressure Source [Right Arm] Blood Pressure Position Sitting Blood Pressure Position [Right Arm] 02 Sat by Pulse Oximetry 95 Oxygen Delivery Method Room Air Room Air Lab Data Lab results reviewed: Yes I reviewed the patient's lab results. Lab Results 12/12/24 13:54: Urine Color Yellow, Urine Appearance Clear, Urine pH 6.0, Ur Specific [place] 1.025, Urine Protein 1+ A, Urine Glucose (UA) Negative, Urine Ketones Negative, Urine Blood 3+ A, Urine Nitrate Negative, Urine Bilirubin Negative, Urine Urobilinogen 0.2, Ur Leukocyte Esterase Negative, Urine RBC 50- 100, Urine WBC Occasional, Ur Squamous Epith Cells Occasional, Urine Bacteria Trace 12/12/24 14:01: WBC 11.5 H, RBC 5.27, Hgb 14.9, Hct 46.2, MCV 87.7, MCH 28.3, MCHC 32.3, RDW 13.1, Plt Count 258, MPV 10.5 H, Neut % (Auto) 75.5, Lymph % (Auto) 15.7, [place] % (Auto) 6.8, Eos % (Auto) 1.4, Baso % (Auto) 0.3, Neut # (Auto) 8.7 H, Lymph # (Auto) 1.8, [place] # (Auto) 0.8, Eos # (Auto) 0.2, Baso # (Auto) 0.0, Sodium 139, Potassium 4.2, Chloride 104, Carbon Dioxide 27, Anion Gap 12.2, BUN 14, Creatinine 1.00, Estimated Creat Clear 145, Estimated GFR 80, Est GFR ( Amer) 97, Glucose 109 H, Calcium 10.1, Total Bilirubin 0.7, AST 26, ALT 29, Alkaline Phosphatase 74, Total Protein 7.4, Albumin 4.3, Globulin 3.1, Albumin/Globulin Ratio 1.4, Procalcitonin 0.080 12/12/24 14:01 12/12/24 14:01 Orders (Tests/Meds): ED MEDICATIONS Discontinued Medications Generic Name Dose Route Start Last Admin Trade Name Maldonado PRN Reason Stop Dose Admin Acetaminophen 1,000 mg 12/12/24 13:53 12/12/24 14:07 Acetaminophen 500mg Tab PO 12/12/24 13:54 1,000 mg ONCE ONE Administration Iopamidol 75 ml 12/12/24 14:57 12/12/24 14:58 Iopamidol-370 (76%);100ml Bottle IV 12/12/24 14:58 75 ml ONCE ONE Administration Ketorolac Tromethamine 15 mg 12/12/24 13:53 12/12/24 14:07 Ketorolac 30mg/Ml Vial IV 12/12/24 13:54 15 mg ONCE ONE Administration Ondansetron HCl 4 mg 12/12/24 13:53 12/12/24 14:07 Ondansetron 4mg/2ml Vial IV 12/12/24 13:54 4 mg ONCE ONE Administration Oxycodone HCl 5 mg 12/12/24 13:53 12/12/24 14:07 Oxycodone 5mg Immediate Release Tablet PO 12/12/24 13:54 5 mg ONCE ONE Administration Sodium Chloride 10 ml 12/12/24 14:57 12/12/24 14:58 Sodium Chloride 0.9% 10ml Syr (Rad Only) IV 12/12/24 14:58 10 ml ONCE ONE Administration ORDERS Category Date Time Status CT abdomen pelvis w con Stat Cat Scan 12/12/24 13:54 Taken CBC w/Auto Diff [Complete Blood Count Auto Diff] Stat Lab 12/12/24 14:01 Completed CMP [Comprehensive Metabolic Panel] Stat Lab 12/12/24 14:01 Completed HIV Combo Stat Lab 12/12/24 14:01 Received Hepatitis C Ab Qual. W/ RFX Stat Lab 12/12/24 14:01 Received Procalcitonin Stat Lab 12/12/24 14:01 Completed UA [Urinalysis and Microscopic] Stat Lab 12/12/24 13:54 Completed Medical Decision Narrative: In summary patient is a 49-year-old male who presents to the emergency department for evaluation of left flank pain. Patient is normotensive with a blood pressure 169/92 heart rate 80 with normal sinus rhythm on bedside monitor breathing 16 times a minute satting at 97% on room air upon arrival, afebrile at 90.1. Physical exam is remarkable for CVA tenderness to percussion on the left negative on the right with mild abdominal discomfort on palpation without rebound or guarding rigidity or focal tenderness. Bowel sounds normal active.. Differential diagnosis includes kidney stone versus urinary tract infection versus gastrointestinal cause etc. Initial workup will be conducted with hematologic labs urinalysis CT scan abdomen pelvis. Initial interventions include IV fluids Toradol Tylenol Zofran. Initial workup reviewed by me and his hematologic labs show a white count of 11.5 normal H&H absolute neutrophil count of 8.7 creatinine and GFR and BUN are all normal, procalcitonin is 0.08 and urinalysis shows protein and hematuria but no evidence of bacteria and my informal interpretation of his CT scan shows approximately 4 to 5 mm mid to distal obstructing ureteral stone with mild hydronephrosis. Upon repeat evaluation patient reported significant improvement after initial intervention. Given this had a shared decision-making discussion with the patient regarding his JASON findings and recommendations. Via patient directed decision making and discharge patient feels comfortable going home with a prescription for tamsulosin Toradol and oxycodone with referral to urology and strict return precautions. <Caroline Robison MD - Last Filed: 12/12/24 15:40> Vital Signs: 12/12/24 13:50 12/12/24 13:52 12/12/24 14:49 Temperature 98.1 F Temperature Source Oral Pulse Rate 79 73 Pulse Rate [Right] 80 Respiratory Rate 16 Blood Pressure 126/64 169/92 H Blood Pressure [Right Arm] 169/92 H Blood Pressure Mean [Right Arm] 117 Blood Pressure Source Blood Pressure Source [Right Arm] Automatic Cuff Blood Pressure Position Blood Pressure Position [Right Arm] Sitting 02 Sat by Pulse Oximetry 97 97 Oxygen Delivery Method Room Air Room Air 12/12/24 15:28 12/12/24 15:31 Temperature 98.3 F Temperature Source Oral Pulse Rate 66 72 Pulse Rate [Right] Respiratory Rate 16 Blood Pressure 135/73 135/73 Blood Pressure [Right Arm] Blood Pressure Mean [Right Arm] Blood Pressure Source Automatic Cuff Blood Pressure Source [Right Arm] Blood Pressure Position Sitting Blood Pressure Position [Right Arm] 02 Sat by Pulse Oximetry 95 Oxygen Delivery Method Room Air Room Air Lab Data Lab Results 12/12/24 13:54: Urine Color Yellow, Urine Appearance Clear, Urine pH 6.0, Ur Specific [place] 1.025, Urine Protein 1+ A, Urine Glucose (UA) Negative, Urine Ketones Negative, Urine Blood 3+ A, Urine Nitrate Negative, Urine Bilirubin Negative, Urine Urobilinogen 0.2, Ur Leukocyte Esterase Negative, Urine RBC 50- 100, Urine WBC Occasional, Ur Squamous Epith Cells Occasional, Urine Bacteria Trace 12/12/24 14:01: WBC 11.5 H, RBC 5.27, Hgb 14.9, Hct 46.2, MCV 87.7, MCH 28.3, MCHC 32.3, RDW 13.1, Plt Count 258, MPV 10.5 H, Neut % (Auto) 75.5, Lymph % (Auto) 15.7, [place] % (Auto) 6.8, Eos % (Auto) 1.4, Baso % (Auto) 0.3, Neut # (Auto) 8.7 H, Lymph # (Auto) 1.8, [place] # (Auto) 0.8, Eos # (Auto) 0.2, Baso # (Auto) 0.0, Sodium 139, Potassium 4.2, Chloride 104, Carbon Dioxide 27, Anion Gap 12.2, BUN 14, Creatinine 1.00, Estimated Creat Clear 145, Estimated GFR 80, Est GFR ( Amer) 97, Glucose 109 H, Calcium 10.1, Total Bilirubin 0.7, AST 26, ALT 29, Alkaline Phosphatase 74, Total Protein 7.4, Albumin 4.3, Globulin 3.1, Albumin/Globulin Ratio 1.4, Procalcitonin 0.080 Orders (Tests/Meds): ED MEDICATIONS Discontinued Medications Generic Name Dose Route Start Last Admin Trade Name Deanq PRN Reason Stop Dose Admin Acetaminophen 1,000 mg 12/12/24 13:53 12/12/24 14:07 Acetaminophen 500mg Tab PO 12/12/24 13:54 1,000 mg ONCE ONE Administration Iopamidol 75 ml 12/12/24 14:57 12/12/24 14:58 Iopamidol-370 (76%);100ml Bottle IV 12/12/24 14:58 75 ml ONCE ONE Administration Ketorolac Tromethamine 15 mg 12/12/24 13:53 12/12/24 14:07 Ketorolac 30mg/Ml Vial IV 12/12/24 13:54 15 mg ONCE ONE Administration Ondansetron HCl 4 mg 12/12/24 13:53 12/12/24 14:07 Ondansetron 4mg/2ml Vial IV 12/12/24 13:54 4 mg ONCE ONE Administration Oxycodone HCl 5 mg 12/12/24 13:53 12/12/24 14:07 Oxycodone 5mg Immediate Release Tablet PO 12/12/24 13:54 5 mg ONCE ONE Administration Sodium Chloride 10 ml 12/12/24 14:57 12/12/24 14:58 Sodium Chloride 0.9% 10ml Syr (Rad Only) IV 12/12/24 14:58 10 ml ONCE ONE Administration ORDERS Category Date Time Status CT abdomen pelvis w con Stat Cat Scan 12/12/24 13:54 Taken CBC w/Auto Diff [Complete Blood Count Auto Diff] Stat Lab 12/12/24 14:01 Completed CMP [Comprehensive Metabolic Panel] Stat Lab 12/12/24 14:01 Completed HIV Combo Stat Lab 12/12/24 14:01 Received Hepatitis C Ab Qual. W/ RFX Stat Lab 12/12/24 14:01 Received Procalcitonin Stat Lab 12/12/24 14:01 Completed UA [Urinalysis and Microscopic] Stat Lab 12/12/24 13:54 Completed Medical Decision Narrative: In summary patient is a 49-year-old male who presents to the emergency department for evaluation of left flank pain. Patient is normotensive with a blood pressure 169/92 heart rate 80 with normal sinus rhythm on bedside monitor breathing 16 times a minute satting at 97% on room air upon arrival, afebrile at 90.1. Physical exam is remarkable for CVA tenderness to percussion on the left negative on the right with mild abdominal discomfort on palpation without rebound or guarding rigidity or focal tenderness. Bowel sounds normal active.. Differential diagnosis includes kidney stone versus urinary tract infection versus gastrointestinal cause etc. Initial workup will be conducted with hematologic labs urinalysis CT scan abdomen pelvis. Initial interventions include IV fluids Toradol Tylenol Zofran. Initial workup reviewed by me and his hematologic labs show a white count of 11.5 normal H&H absolute neutrophil count of 8.7 creatinine and GFR and BUN are all normal, procalcitonin is 0.08 and urinalysis shows protein and hematuria but no evidence of bacteria and my informal interpretation of his CT scan shows approximately 4 to 5 mm mid to distal obstructing ureteral stone with mild hydronephrosis. Upon repeat evaluation patient reported significant improvement after initial intervention. Given this had a shared decision-making discussion with the patient regarding his JASON findings and recommendations. Via patient directed decision making and discharge patient feels comfortable going home with a prescription for tamsulosin Toradol and oxycodone with referral to urology and strict return precautions. I was consulted by the LYDIA, and we discussed the complexity of problems being addressed. I approved the treatment and management plan for this patient's care in the emergency department, thus performing a substantial portion of the medical decision making. Caroline Robison MD Critical Care <YESENIA Philippe - Last Filed: 12/12/24 15:32> Critical Care Time Critical Care Time: No
[2024-12-12 13:50] VITALS: BP 126/64; PULSE 79; O2SAT 97
[2024-12-12 13:52] VITALS: BP 169/92; PULSE 80; RESP 16; TEMP 36.7; O2SAT 97; BMI 33.9
--- NOTE | 2024-12-12 13:54 | CT_ITS ---
PROCEDURE INFORMATION: Exam: CT Abdomen And Pelvis With Contrast Exam date and time: 12/12/2024 2:57 PM Age: 49 years old Clinical indication: Abdominal pain; Flank; Left; Additional info: Left flank pain TECHNIQUE: Imaging protocol: Computed tomography of the abdomen and pelvis with contrast. Radiation optimization: All CT scans at this facility use at least one of these dose optimization techniques: automated exposure control; mA and/or kV adjustment per patient size (includes targeted exams where dose is matched to clinical indication); or iterative reconstruction. Contrast material: ISOVUE; Contrast volume: 75 ml; Contrast route: IV; COMPARISON: CT ABDOMEN PELVIS WO CON 12/14/2023 12:32 PM FINDINGS: Lungs: Minor left basilar streaky opacities suggest atelectasis or parenchymal scarring. Pleural spaces: There are no pleural effusions. Heart: The visualized portions of the heart are unremarkable. There is a trace amount of pericardial fluid. Liver: There is diffuse decrease in hepatic/liver parenchymal density consistent with fatty infiltration. Gallbladder and biliary ducts: The gallbladder is normal. Pancreas: Normal. No ductal dilation. Spleen: The spleen demonstrates punctate calcifications, consistent with remote granulomatous organism exposure. Adrenal glands: The adrenal glands are normal. Kidneys and ureters: There are multiple bilateral renal collecting system calcifications, as before. There is a mild delay in the left renal nephrogram mild hydroureteronephrosis and mild to moderate perinephric fat stranding due to a obstructing left distal ureteral calcification measuring approximately 5.7 mm seen on series 1001, image 41. No right ureteric stone disease. No right hydronephrosis. Previously described rounded hypodensity with peripheral calcification involving the anterior left mid kidney measuring approximately 14 mm is stable. Internal Hounsfield units measure greater than expected for simple fluid although small size of the lesion precludes adequate evaluation on current exam. Previously seen mildly obstructing calculus in the proximal right ureter is no longer visualized. Stomach and bowel: Lack of gastrointestinal contrast limits evaluation of bowel. The stomach is normal. The duodenum is unremarkable. There are a few loops of proximal small bowel which show mild apparent mural thickening, possibly an artifact of incomplete distension or peristalsis. Cannot entirely exclude enteritis or other inflammatory/infiltrative processes in the appropriate clinical setting. This is best seen on series 3, images 46-70 and series 1001, images 23-38. Correlate clinically. Remaining loops of distal small bowel appear within range of normal. The colon appears within range of normal. Appendix: A normal appendix is identified. Intraperitoneal space: No evidence of intraperitoneal free air. No significant free fluid. Vasculature: There is no evidence of an aortic aneurysm. The aorta and iliac arteries demonstrate mild atherosclerotic calcification. Lymph nodes: There are stable scattered shotty retroperitoneal and periportal lymph nodes, not of pathologic significance by CT size criteria. No pathologic adenopathy. Urinary bladder: The bladder is decompressed. Reproductive: The prostate and seminal vesicles are normal. Bones/joints: There are mild degenerative changes of the hip joints. The thoracolumbar spine demonstrates mild degenerative changes at multiple levels. There is very slight retrolisthesis of L5 on S1. Soft tissues: There is a tiny fat-containing umbilical hernia. IMPRESSION: 1. Mild delay in the left renal nephrogram mild hydroureteronephrosis and mild to moderate perinephric fat stranding due to a obstructing left distal ureteral calcification measuring approximately 5.7 mm 2. Previously described rounded hypodensity with peripheral calcification involving the anterior left mid kidney measuring approximately 14 mm is stable, not optimally characterized on current exam. Cannot exclude small mass and recommend additional dedicated CT/MR evaluation on a nonemergent basis when the patient's condition permits.. 3. Fatty hepatic infiltration. 4. Multiple bilateral renal collecting system calcifications. COMMENTS: Consistent with the [employer]'s Incidental Findings Committee white paper (J Am Maritza Radiol 2018): Any incidental renal lesion less than 1 cm or classified as too small to characterize, or any incidental cystic renal lesion characterized as simple-appearing, is likely benign. No follow-up imaging is recommended for these lesions per consensus recommendations based on imaging criteria.
[2024-12-12 13:59] LABS: Microscopic, Urine URINE MICROSCOPIC (MICROSCOPIC)
[2024-12-12] MEDS: KETOROLAC 30MG/ML VIAL 15 MG IV (14:07)
[2024-12-12] MEDS: ONDANSETRON 4MG/2ML VIAL 4 MG IV (14:07)
[2024-12-12] MEDS: OXYCODONE 5MG IMMEDIATE RELEASE TABLET 5 MG PO (14:07)
[2024-12-12] MEDS: ACETAMINOPHEN 500MG TAB 1000 MG PO (14:07)
[2024-12-12 14:22] LABS: Alanine Aminotransferase 29 U/L (12-78); Albumin Level 4.3 g/dl (3.5-5.0); Albumin/Globulin Ratio 1.4 (1.1-1.8); Alkaline Phosphatase 74 U/L (38-126); Anion Gap 12.2 mEq/L (5-15); Aspartate Amino Transferase 26 U/L (17-59); Bilirubin,Total 0.7 mg/dl (0.2-1.3); Blood Urea Nitrogen 14 mg/dl (9-20); Calcium 10.1 mg/dl (8.4-10.2); Carbon Dioxide 27 mmol/L (22.0-30.0); Chloride 104 mmol/L (98-107); Creatinine Clearance Estimated 145 mL/min (50-200); Estimated Glomerular Filt Rate 80 ml/min (>60); GFR (African American) 97 ML/MIN (>60); Globulin 3.1 g/dL (1.3-3.2); Glucose 109 mg/dl (74-100); Potassium 4.2 mmoL/L (3.5-5.1); Sodium 139 mmol/L (136-145); Total Protein,Serum 7.4 g/dl (6.3-8.2)
[2024-12-12 14:25] LABS: Appearance,Urine CLEAR (Clear); Bilirubin,Urine Negative (Negative); Blood, Urine 3+ (Negative); Color,Urine YELLOW (Yellow); Glucose,Urine (UA) Negative (Negative); Ketones,Urine Negative (Negative); Leukocyte Esterase,Urine Negative (Negative); Nitrate,Urine Negative (Negative); Protein,Urine 1+ (Negative); Specific Gravity, Urine 1.025 (1.005-1.030); Urobilinogen,Urine 0.2 EU/dl (0.2)
[2024-12-12 14:28] LABS: Basophils % 0.3 % (0.1-2.0); Eosinophils # 0.2 K/mm3 (0.0-0.4); Eosinophils % 1.4 % (0.1-12.0); Hematocrit 46.2 % (42.0-52.0); Hemoglobin 14.9 g/dL (14.1-18.0); Lymphocytes # 1.8 K/mm3 (0.7-4.5); Lymphocytes % 15.7 % (10-50); Mean Corpuscular HGB Conc 32.3 g/dL (31.8-35.4); Mean Corpuscular Hemoglobin 28.3 pg (27.0-31.2); Mean Corpuscular Volume 87.7 fl (80-94); Mean Platelet Volume 10.5 fl (7.4-10.4); Monocytes # 0.8 K/mm3 (0.1-1.0); Monocytes % 6.8 % (1.7-9.3); Neutrophils # 8.7 K/mm3 (1.8-7.8); Neutrophils % 75.5 % (37.0-80.0); Platelet Count 258 K/mm3 (142-424); Red Blood Count 5.27 M/mm3 (4.60-6.20); Red Cell Distribution Width 13.1 % (11.5-17.5); White Blood Count 11.5 K/mm3 (4.8-10.8)
[2024-12-12 14:49] VITALS: BP 169/92; PULSE 73
[2024-12-12 14:52] LABS: Bacteria,Urine Trace /lpf; RBC,Urine 50-100 #/hpf (0-3); Squamous Epithelial Cell,Urine Occasional #/hpf (0-5); WBC,Urine Occasional #/hpf (0-3)
[2024-12-12] MEDS: IOPAMIDOL-370 (76%);100ML BOTTLE 75 ML IV (14:58)
[2024-12-12] MEDS: SODIUM CHLORIDE 0.9% 10ML SYR (RAD ONLY) 10 ML IV (14:58)
[2024-12-12 15:28] VITALS: BP 135/73; PULSE 66; O2SAT 95
[2024-12-12 15:31] VITALS: BP 135/73; PULSE 72; RESP 16; TEMP 36.8; O2SAT 98
[2024-12-12 16:50] LABS: HIV Combo NEGATIVE (Negative)
[2024-12-12 16:58] LABS: Hepatitis C Ab Qual. W/ RFX NEGATIVE (Negative)
== END 2024-12-12 15:32 | disposition home or self-care (01) ==
PROVIDERS: Physician Assistant; Emergency Provider Student in an Organized Health Care Education/Training Program; PCP Nurse Practitioner Family
DX: N20.1 Calculus of ureter (principal); R10.32 Left lower quadrant pain; R11.0 Nausea
CPT/HCPCS: 74177; 80053; 81001; 84145; 85025; 86803; 87389; 96374; 96375; 99285; J1885; J2405; Q9967

== ENCOUNTER 2024-12-15 15:56 | Outpatient (CLI) | payer BC, SELFPAY ==
[2024-12-22 16:06] LABS: Ca oxalate dihydrate 60; Size 6X4 mm; Specimen Type KIDNEY STONE
[2024-12-22 16:07] LABS: Photo SCANNED IMAGE
== END 2024-12-15 23:59 | disposition home or self-care (01) ==
LOC: LAB 15:56
PROVIDERS: PCP Nurse Practitioner Family; Visit Provider Nurse Practitioner Family
DX: N20.1 Calculus of ureter (principal)
CPT/HCPCS: 82370

== ENCOUNTER 2024-12-28 09:54 | Outpatient (CLI) | payer BC, SELFPAY ==
--- OUTSIDE RECORDS SUMMARY | 2024-12-28 09:56 | XMS_ITS | Data Portability ---
Author Organization [place] - [facility] ADMIN Address [address] [place] [id number] Care Team Providers Care Cementer Machine Joiner Name Role Phone LEANA GOLDMAN Primary Care Provider [phone] Assessment Encounter Date Assessment Date Assessment LastModified by Organization Details LastModified Time 05/15/2023 05/15/2023 The patient is a 47 year old male referred by Dr. Robles for tailbone pain with onset 6 months ago following sitting for an extended period of time at a band event. The patient has attempted to manage pain conservatively with a donut pillow, in addition to OTC medication and a muscle relaxant. The patient presents to the clinic today upon referral for tailbone pain without radicular symptoms, which worsens with sitting. Based on the history and physical exam it appears that the pain is associated with coccydynia. The patient denies red flag symptoms, such as saddle anesthesia, weakness, or bowel/bladder changes. Prior imaging revealed an old dislocation or fracture of the coccyx with mild edema. I had a detailed discussion with the patient regarding various treatment modalities and the respective risks/benefits. Considering the patient hasn't participated in PT for this particular pain, I will refer to PT with focus on the pelvis. If pain persists post-PT, I will likely schedule a ganglion of impar block. I will follow up 6-8 weeks post-PT. I have discussed in great detail our potential treatment options which would include a rehabilitative approach to care. This program would include medication management, Physical Therapy, consideration for interventional procedures as appropriate, and lifestyle modification (diet, weight loss, exercise, smoking/tobacco cessation, holistic approach including meditation and yoga). The patient understands and agrees prior to proceeding with this plan. _ __ __ __ __ __ __ __ __ __ __ __ __ __ __ __ __ __ __ __ __ __ __ __ __ __ __ __ _ RECORDS REVIEW: As per clinic policy, we will have the patient sign a release to obtain previous imaging and clinical notes. _ __ __ __ __ __ __ __ __ __ __ __ __ __ __ __ __ __ __ __ __ __ __ __ __ __ __ __ _ PSYCH: Pain affecting Neuro-psych behavior was discussed. Discussed about pain psychological counseling as a part of the multimodal approach to pain treatment. _ __ __ __ __ __ __ __ __ __ __ __ __ __ __ __ __ __ __ __ __ __ __ __ __ __ __ __ _ REHABILITATION: Discussed with the patient the importance of diet, daily physical activity and PT. Discussed with the patient the need to be scheduled for physical therapy since physical therapy will prolong the benefits of the procedure and interventions. _ __ __ __ __ __ __ __ __ __ __ __ __ __ __ __ __ __ __ __ __ __ __ __ __ __ __ __ _ RESHMA: [id number] I have reviewed patient's RESHMA report prior to prescribing Schedule II, III, and IV medications that require review by law. [email or web address] Not available 05/15/2023 13:54:32 07/15/2023 07/15/2023 The patient is a 47 year old male referred by Dr. Robles for tailbone pain with onset 6 months ago following sitting for an extended period of time at a band event. The patient has attempted to manage pain conservatively with a donut pillow, in addition to OTC medication and a muscle relaxant. The patient presents to the clinic today to follow up post-PT. The patient participated in PT with minimal benefit. The patient continues to complain of tailbone pain without radicular symptoms, which worsens with sitting. Based on the history and physical exam it appears that the pain is associated with coccydynia. The patient denies red flag symptoms, such as saddle anesthesia, weakness, or bowel/bladder changes. Prior imaging revealed an old dislocation or fracture of the coccyx with mild edema. I think the patient is a good candidate for interventional treatment, as their pain has been refractory to conservative and pharmacologic approaches. The patient has attempted to make lifestyle modifications, but pain continues to impede performing ADLs, thereby negatively affecting quality of life. After a detailed discussion of treatment modalities and the respective risks/benefits, I will proceed with scheduling a ganglion of impar block. I think this procedure has the most potential to target the pain pattern. I will follow up post-procedure. I counseled the patient extensively and informed of the risks of the procedure, including the risk of paralysis, nerve damage, respiratory arrest, arrhythmias, stroke, weakness, and infection, which although very low, could result in or disability. The patient acknowledged to me that they understand and accept these risks. RN EDUCATION Extensive coordination of care provided by RN to educate patient on upcoming procedure and to coordinate obtaining extensive incoming medical records. I have discussed in great detail our potential treatment options which would include a rehabilitative approach to care. This program would include medication management, Physical Therapy, consideration for interventional procedures as appropriate, and lifestyle modification (diet, weight loss, exercise, smoking/tobacco cessation, holistic approach including meditation and yoga). The patient understands and agrees prior to proceeding with this plan. _ __ __ __ __ __ __ __ __ __ __ __ __ __ __ __ __ __ __ __ __ __ __ __ __ __ __ __ _ RECORDS REVIEW: As per clinic policy, we will have the patient sign a release to obtain previous imaging and clinical notes. _ __ __ __ __ __ __ __ __ __ __ __ __ __ __ __ __ __ __ __ __ __ __ __ __ __ __ __ _ PSYCH: Pain affecting Neuro-psych behavior was discussed. Discussed about pain psychological counseling as a part of the multimodal approach to pain treatment. _ __ __ __ __ __ __ __ __ __ __ __ __ __ __ __ __ __ __ __ __ __ __ __ __ __ __ __ _ REHABILITATION: Discussed with the patient the importance of diet, daily physical activity and PT. Discussed with the patient the need to be scheduled for physical therapy since physical therapy will prolong the benefits of the procedure and interventions. _ __ __ __ __ __ __ __ __ __ __ __ __ __ __ __ __ __ __ __ __ __ __ __ __ __ __ __ _ RESHMA: [id number] I have reviewed patient's RESHMA report prior to prescribing Schedule II, III, and IV medications that require review by law. [email or web address] Not available 07/15/2023 09:27:56 08/29/2023 08/29/2023 [facility] [place] [address]. This was a real-time clinical encounter over [[email or web address] ]. Consent was obtained to engage in telemedicine service. Greater than 50% of the time spent was devoted to counseling and coordinating care including review of records, pertinent lab data and studies as well as discussing diagnostic evaluation and workup, plan therapeutic interventions and future disposition of care. This included any additional research needed to obtain further information in formulating the plan of care for this patient. This includes counseling with the patient about their disease and diagnosis, specifically as below. Patient was also counseled on the precaution of COVID-19 including importance of hand washing and social distancing. WE SPECIFICALLY DISCUSSED RISK FACTORS FOR COVID-19, INCLUDING AGE>60, HEART OR LUNG DISEASE, DIABETES, IMMUNOSUPPRESSION, AND TRAVEL. WE ALSO DISCUSSED THAT NSAIDS MAY WORSEN COVID-19 INFECTION SYMPTOMS AND THAT THEY SHOULD NOT BE USED TO TREAT COVID-19 SYMPTOMS. PATIENT WAS ALSO INFORMED THAT CORTICOSTEROIDS IN ANY FORM (ORAL OR INJECTABLE) WILL DECREASE IMMUNE RESPONSE AND MAY INCREASE RISK OF COVID-19 INFECTION AND SYMPTOMS. THIS ENCOUNTER WAS PERFORMED A TELEMEDICINE VISIT VIA SECURE TWO-WAY VIDEO AND AUDIO TO MINIMIZE RISK AND TRANSMISSION OF COVID-19. THE PATIENT AND WE UNDERSTAND THE LIMITATIONS OF A TELEMEDICINE VISIT INCLUDING INABILITY TO CHECK REFLEXES, POSSIBLY MISSING SUBTLE FINDINGS ON PHYSICAL EXAM. ALTERNATIVE OPTIONS WERE PRESENTED TO THE PATIENT AND THE PATIENT ELECTED TO PROCEED WITH THE VISIT. The patient is a 47 year old male referred by Dr. Robles for tailbone pain with onset 6 months ago following sitting for an extended period of time at a band event. The patient has attempted to manage pain conservatively with a donut pillow, in addition to OTC medication and a muscle relaxant. Patient presents today via tele video for follow-up ganglion impar block. Patient reports 100% pain improvement after the procedure. He has been extremely happy with the outcome. He has previously participated in PT without relief. Pain today 0/10. Prior imaging revealed an old dislocation or fracture of the coccyx with mild edema. patient has had 100% improved pain and function following the procedure. I explained that this can be repeated every 4-6 months. Patient will call if pain returns. I counseled the patient extensively and informed of the risks of the procedure, including the risk of paralysis, nerve damage, respiratory arrest, arrhythmias, stroke, weakness, and infection, which although very low, could result in or disability. The patient acknowledged to me that they understand and accept these risks. RN EDUCATION Extensive coordination of care provided by RN to educate patient on upcoming procedure and to coordinate obtaining extensive incoming medical records. I have discussed in great detail our potential treatment options which would include a rehabilitative approach to care. This program would include medication management, Physical Therapy, consideration for interventional procedures as appropriate, and lifestyle modification (diet, weight loss, exercise, smoking/tobacco cessation, holistic approach including meditation and yoga). The patient understands and agrees prior to proceeding with this plan. _ __ __ __ __ __ __ __ __ __ __ __ __ __ __ __ __ __ __ __ __ __ __ __ __ __ __ __ _ RECORDS REVIEW: As per clinic policy, we will have the patient sign a release to obtain previous imaging and clinical notes. _ __ __ __ __ __ __ __ __ __ __ __ __ __ __ __ __ __ __ __ __ __ __ __ __ __ __ __ _ PSYCH: Pain affecting Neuro-psych behavior was discussed. Discussed about pain psychological counseling as a part of the multimodal approach to pain treatment. _ __ __ __ __ __ __ __ __ __ __ __ __ __ __ __ __ __ __ __ __ __ __ __ __ __ __ __ _ REHABILITATION: Discussed with the patient the importance of diet, daily physical activity and PT. Discussed with the patient the need to be scheduled for physical therapy since physical therapy will prolong the benefits of the procedure and interventions. _ __ __ __ __ __ __ __ __ __ __ __ __ __ __ __ __ __ __ __ __ __ __ __ __ __ __ __ _ RESHMA: [id number] I have reviewed patient's RESHMA report prior to prescribing Schedule II, III, and IV medications that require review by law. [email or web address] Not available 09/01/2023 14:08:03 07/12/2024 07/12/2024 Mr. Roa was referred by Dr. Robles for tailbone pain with onset 6 months ago following sitting for an extended period of time at a band event. The patient has attempted to manage pain conservatively with a donut pillow, in addition to OTC medication and a muscle relaxant. [email or web address] Not available 07/13/2024 08:38:48 Plan of Treatment Reminders Order Date Submit Date Provider Last Modified By Organization Details Last Modified Time Details Appointments None recorded. Lab None recorded. Referral physical therapist referral - Refer to PT with focus on the pelvis (pelvic floor muscle exercises/s tretches) 1-2x weekly for 6-8 weeks. 2022 023 [email or web address] 1 [facility], [address], [place], [address], 3 15:45:37 Procedures sympathetic nerve block (PROC) - Ganglion of impar block. [address]. 2022 023 [email or web address] 308 Michele Sandoval MD, [address], [address], [place], [address], 3 10:54:44 Surgeries None recorded. Imaging None recorded. Medication Orders None recorded. Patient TargetsNo targets recorded. Patient Instructions Encounter Date Encounter Id Patient Instructions Last Modified By Organization Details Last Modified Time 07/12/2024 [id number] I counseled the patient extensively and informed of the risks of the procedure, including the risk of paralysis, nerve damage, respiratory arrest, arrhythmias, stroke, weakness, and infection, which although very low, could result in or disability. The patient acknowledged to me that they understand and accept these risks. RN EDUCATION Extensive coordination of care provided by RN to educate patient on upcoming procedure and to coordinate obtaining extensive incoming medical records. I have discussed in great detail our potential treatment options which would include a rehabilitative approach to care. This program would include medication management, Physical Therapy, consideration for interventional procedures as appropriate, and lifestyle modification (diet, weight loss, exercise, smoking/tobacco cessation, holistic approach including meditation and yoga). The patient understands and agrees prior to proceeding with this plan. _ __ __ __ __ __ __ __ __ __ __ __ __ __ __ __ __ __ __ __ __ __ __ __ __ __ __ __ _ RECORDS REVIEW: As per clinic policy, we will have the patient sign a release to obtain previous imaging and clinical notes. _ __ __ __ __ __ __ __ __ __ __ __ __ __ __ __ __ __ __ __ __ __ __ __ __ __ __ __ _ PSYCH: Pain affecting Neuro-psych behavior was discussed. Discussed about pain psychological counseling as a part of the multimodal approach to pain treatment. _ __ __ __ __ __ __ __ __ __ __ __ __ __ __ __ __ __ __ __ __ __ __ __ __ __ __ __ _ REHABILITATION: Discussed with the patient the importance of diet, daily physical activity and PT. Discussed with the patient the need to be scheduled for physical therapy since physical therapy will prolong the benefits of the procedure and interventions. _ __ __ __ __ __ __ __ __ __ __ __ __ __ __ __ __ __ __ __ __ __ __ __ __ __ __ __ _ RESHMA: [id number] I have reviewed patient's RESHMA report prior to prescribing Schedule II, III, and IV medications that require review by law. [email or web address] Not available 07/13/2024 08:38:05 Reason for Referral Physical Therapist Referral for Pain in coccyx Refer to PT with focus on the pelvis (pelvic floor muscle exercises/stretches) 1-2x weekly for 6-8 weeks. Referring Physician: Michele Sandoval, Pain Management, Encounter Date: 05/15/2023 Problems Name Problem SNOMED Code Status Onset Date Resolution Date Notes Provider Name and Address Organization Details Recorded Time Hypertensiv e disorder 49802324 Active 2022 [place] Ally jane null, [place] - [facility] & [place] 3 09:56:24 Sleep apnea 43836945 Active 2022 Sara Ally jane null, [place] - [facility] - [facility] & [place] 3 09:56:35 Chronic sacral pain for greater than three months 4893450302098 07 Active 2022 Nanci Mcdaniel null, [place] - [facility] - [facility] & [place] 3 09:23:24 Pain in buttock 835297764 Active 2022 Nanci Mcdaniel null, [place] - [facility] - [facility] & [place]la 3 09:23:25 Pain in coccyx 56253909 Active 2022 Nanci barnett, [place] - [facility] - [facility] & [place] 3 09:23:26 Myofascial pain 905908496 Active 2022 Nanci barnett, [place] - [facility] - [facility] & [place] 3 09:23:28 Problem Notes None recorded. Procedures Surgical History Date Name Laterality Status Provider Name and Address Organization Details Recorded Time 7 Other completed Poppy VELEZ - [facility] - [place] & [place] 07/12/2024 08:52:12 Knee Surgery completed Sara VELEZ - [facility] & [place] 05/15/2023 09:58:04 Imaging Results None recorded. Procedure Notes None recorded. Medical Equipment None Reported. Allergies No known drug allergies Medications Name Sig Start Date Stop Date Status Note LastModified by Organization Details LastModified Time cyclobenzap rine 10 mg tablet TAKE 1 TABLET BY MOUTH THREE TIMES DAILY NEEDED FOR MUSCLE SPASM 05/15 completed Not Available Not Available Not Available azithromyci n 250 mg tablet TAKE 2 TABLETS BY MOUTH ON DAY 1, AND THEN TAKE 1 TABLET BY MOUTH ONCE A DAY ON DAY 2 THROUGH DAY 5 active Not Available Not Available No t Available meloxicam 15 mg tablet TAKE 1 TABLET BY MOUTH ONCE DAILY 05/15 completed Not Available Not Available Not Available lisinopril 20 mg tablet TAKE 1 TABLET BY MOUTH EVERY DAY FOR BLOOD PRESSURE active Not Available Not Available No t Available prednisone 20 mg tablet TAKE 1 TABLET BY MOUTH TWICE DAILY FOR 5 DAYS 05/15 completed Not Available Not Available Not Available ketorolac 10 mg tablet TAKE 1 TABLET BY MOUTH EVERY 8 HOURS NEEDED FOR PAIN FOR 10 DAYS 07/12 completed Not Available Not Available Not Available prednisone 10 mg tablets in a dose pack TAKE BY MOUTH DIRECTED ON INSIDE OF PACKAGE active Not Available Not Available No t Available methocarbam ol 750 mg tablet TAKE 1 TABLET BY MOUTH THREE TIMES DAILY NEEDED FOR MUSCLE SPASM 05/15 completed Not Available Not Available Not Available tamsulosin 0.4 mg capsule TAKE 1 CAPSULE BY MOUTH ONCE DAILY FOR 30 DAYS 07/12 completed Not Available Not Available Not Available benzonatate 100 mg capsule TAKE 1 CAPSULE BY MOUTH THREE TIMES DAILY NEEDED FOR COUGH 05/15 completed Not Available Not Available Not Available pantoprazol e 40 mg tablet,arcenio yed release TAKE 1 TABLET BY MOUTH ONCE DAILY 07/12 completed Not Available Not Available Not Available gabapentin 100 mg capsule TAKE 1 CAPSULE BY MOUTH THREE TIMES DAILY 05/15 completed Not Available Not Available Not Available diazepam 10 mg tablet TAKE 1 TABLET BY MOUTH ONE HOUR PRIOR TO PROCEDURE FOR 1 DAY 07/12 completed Not Available Not Available Not Available methylpredn isolone 4 mg tablets in a dose pack TAKE BY MOUTH DIRECTED ON INSIDE OF PACKAGE 05/15 completed Not Available Not Available Not Available ondansetron 4 mg disintegrat ing tablet DISSOLVE 1 TABLET IN MOUTH EVERY 8 HOURS NEEDED FOR NAUSEA AND VOMITING 07/12 completed Not Available Not Available Not Available dicyclomine 10 mg capsule TAKE 1 CAPSULE BY MOUTH THREE TIMES DAILY NEEDED ABDOMINAL PAIN OR CRAMPING 07/12 completed Not Available Not Available Not Available amoxicillin 875 mg-potassiu m clavulanate 125 mg tablet TAKE 1 TABLET BY MOUTH TWICE DAILY FOR 7 DAYS 07/12 completed Not Available Not Available Not Available Xifaxan 550 mg tablet TAKE 1 TABLET BY MOUTH THREE TIMES DAILY FOR 14 DAYS 07/12 completed Not Available Not Available Not Available Vitals Date Recorded Body height Body mass index (BMI) Body weight Body temperature Oxygen saturation Oxygen saturation in Arterial blood by Pulse oximetry Heart rate Systolic blood pressure Diastolic blood pressure Provider Name and Address Organization Details Last Updated DateTime 3 182.88 cm 20.8 kg/m2 22919.6 3 g 97.5 [degF] 97 % 97 % 74 /min 153 mm[Hg] 82 mm[Hg] Sara BAUER [facility] & [place] 3 10:06:36 Date Recorded Body height Body mass index (BMI) Body weight Body temperature Oxygen saturation Oxygen saturation in Arterial blood by Pulse oximetry Heart rate Systolic blood pressure Diastolic blood pressure Provider Name and Address Organization Details Last Updated DateTime 3 182.88 cm 34 kg/m2 927885. 68 g 97.1 [degF] 97 % 97 % 67 /min 129 mm[Hg] 86 mm[Hg] Sara BAUER [facility] & [place] 3 08:26:15 Date Recorded Body height Provider Name an d Address Organization Details Last Updated DateTime 08/29/2023 182.88 cm Poppy BAUER [facility] & [place] 08/29/2023 09:48:33 Date Recorded Body height Body mass index (BMI) Body weight Body temperature Oxygen saturation Oxygen saturation in Arterial blood by Pulse oximetry Heart rate Systolic blood pressure Diastolic blood pressure Provider Name and Address Organization Details Last Updated DateTime 4 182.88 cm 34 kg/m2 114598. 68 g 97.8 [degF] 97 % 97 % 74 /min 124 mm[Hg] 84 mm[Hg] Poppy BAUER [facility] & [place] 4 08:51:48 Social History Question Answer Notes LastModified by Organizat ion Details LastModified Time Tobacco Smoking Status Never Smoker AGUSTIN Collier [facility] & [place] 05/15/2023 09:57:47 Do You Or Have You Ever Used Any Other Forms Of Tobacco Or Nicotine? No [email or web address] Information not available 08/29/2023 Sex: Male Functional Status None recorded. Mental Status None recorded. Family History Relationship Description Onset Age of this Age Resolved Age Notes LastModified by Organization Details LastModified Time Mother Hypertensive disorder [email or web address] Not available 09:57:03 Father Hypertensive disorder [email or web address] Not available 09:57:18 Father Atrial fibrillation [email or web address] Not available 07:35:59 Medical History Condition Response Hypertension Y Past Encounters Encounter ID Performer Location Encounter Start Date Encounter Closed Date Diagnosis/Indication Diagnosis SNOMED-CT Code Diagnosis ICD10 Code Diagnosis Note [id number] Michele Sandoval MD [facility] [address] [place] [address] 05/15/2023 09:40:43 05/15/2023 10:53:41 Myofascial pain 612237288 M79.10 Pain in coccyx 25909916 M53.3 Chronic sa cral pain for greater than three months 4743502626 11835 M54.9 Pain in buttock 33650270 6 M79.18 [id number] ERIK FUNEZ PA-C [facility] [address] [place] [address] 07/15/2023 07:59:40 07/15/2023 09:36:59 Myofascial pain 522048884 M79.10 Pain in coccyx 29825207 M53.3 Chronic sa cral pain for greater than three months 5775969099 88114 M54.9 Pain in buttock 15550627 6 M79.18 [id number] YESENIA LOZANO [facility] [address] [place] [address] 08/29/2023 09:46:12 08/29/2023 12:13:05 Myofascial pain 001468753 M79.10 Pain in coccyx 13205392 M53.3 Chronic sa cral pain for greater than three months 4200526850 78491 M54.9 Pain in buttock 09382844 6 M79.18 [id number] Michele Sandoval MD [facility] [address] [place] [address] 07/12/2024 08:31:27 07/12/2024 09:57:34 Pain in coccyx 53863652 M53.3 - Based on the patient's history and physical exam, it appears his pain is likely associated with coccydynia .- The patient is post ganglion impar block in 07/2023 which provided nearly 100% pain relief for over 8 months before the pain returned.- Considerin g the success of the previous block, I will schedule a repeat. This procedure will be fluoroscop y guided.- I will follow up with the patient 2 weeks post injection. Chronic sa cral pain for greater than three months 6321735537 69788 M54.9 - MRI of sacrum/miki cyx shows old dislocatio n or fracture of the coccyx with mild edema. Pain in buttock 90533079 6 M79.18 Health Concerns Section Related Observation LastModified by Organization Detai ls LastModified Time None Recorded Concern Status LastModified by Organization Details LastModified Time None Recorded Advance Directives Directive None Recorded Payers Encounter Date Sequence Insurance Name Policy Number Policy Purcell Covered Member ID Purcell Member ID Guarantor Name 05/15/2023 1 [place] [id number] Azam R Rosendale [id number] Azam R Crispin 07/15/2023 1 [place] [id number] Azam R Crispin [id number] Azam R [place] 08/29/2023 1 [place] [id number] Azam R [place] [id number] Azam R [place] 07/12/2024 1 [place] [id number] Azam R Crispin [id number] Azam R [place] Notes Date Note Type Note Provider Name and Address Organization Details Recorded Time 3 text/html The patient is a 47 year old male referred by Dr. Robles for tailbone pain with onset 6 months ago following sitting for an extended period of time at a band event. The patient has attempted to manage pain conservatively with a donut pillow, in addition to OTC medication and a muscle relaxant. The patient presents to the clinic today upon referral for tailbone pain, which worsens with sitting. The patient denies radicular symptoms. The patient states that pain has decreased function, thereby negatively affecting quality of life. Today the pain level is a 5/10. Onset: 6 months agoContext: N/ACharacter: AcheLocation: TailboneDuration: Constant with fluctuationsIntensity: 5/10Worse: Prolonged sittingBetter: Standing Associated symptoms: Denies saddle anaesthesia, denies acute bowel/bladder changes, denies acute power loss. ADLs: The patient's pain interferes with daily chores, exercise, sleep, relationships, and walking. Current Pain Medications: NonePrior Pain Medications: N/ANSAIDS/OTC: IneffectiveNon-intervent ional Tx: At-home exercises/stretchesPhysi ayala Therapy: NoneInterventional Tx: NoneSurgery: NoneImaging/Studies: Pelvic x-ray and MRI Michele Sandoval MD [address] [facility], [place], [address], [facility] - [facility] 05/15/2023 15:27:07 3 text/html The patient is a 47 year old male referred by Dr. Robles for tailbone pain with onset 6 months ago following sitting for an extended period of time at a band event. The patient has attempted to manage pain conservatively with a donut pillow, in addition to OTC medication and a muscle relaxant. The patient presents to the clinic today to follow up post-PT. The patient states that he participated in PT with minimal benefit. The patient continues to complain of tailbone pain, which worsens with sitting. The patient denies radicular symptoms. The patient states that pain has decreased function, thereby negatively affecting quality of life. Today the pain level is a 1/10, but fluctuates higher. Onset: 6 months agoContext: N/ACharacter: AcheLocation: TailboneDuration: Constant with fluctuationsIntensity: 5/10Worse: Prolonged sittingBetter: Standing Associated symptoms: Denies saddle anaesthesia, denies acute bowel/bladder changes, denies acute power loss. ADLs: The patient's pain interferes with daily chores, exercise, sleep, relationships, and walking. Current Pain Medications: NonePrior Pain Medications: N/ANSAIDS/OTC: IneffectiveNon-intervent ional Tx: At-home exercises/stretchesPhysi ayala Therapy: NoneInterventional Tx: NoneSurgery: NoneImaging/Studies: Pelvic x-ray and MRI ERIK FUNEZ PA-C [address], [place], [address], [facility] 07/15/2023 09:29:31 3 text/html The patient is a 47 year old male referred by Dr. Robles for tailbone pain with onset 6 months ago following sitting for an extended period of time at a band event. The patient has attempted to manage pain conservatively with a donut pillow, in addition to OTC medication and a muscle relaxant. Patient presents today via tele video for follow-up ganglion impar block. Patient reports 100% pain improvement after the procedure. He has been extremely happy with the outcome. He has previously participated in PT without relief. Pain today 0/10. Onset: 6 months agoContext: N/ACharacter: AcheLocation: TailboneDuration: Constant with fluctuationsIntensity: 5/10Worse: Prolonged sittingBetter: Standing Associated symptoms: Denies saddle anaesthesia, denies acute bowel/bladder changes, denies acute power loss. ADLs: The patient's pain interferes with daily chores, exercise, sleep, relationships, and walking. Current Pain Medications: NonePrior Pain Medications: N/ANSAIDS/OTC: IneffectiveNon-intervent ional Tx: At-home exercises/stretchesPhysi ayala Therapy: NoneInterventional Tx: NoneSurgery: NoneImaging/Studies: Pelvic x-ray and MRI YESENIA LOZANO [address] , [place], [address], [facility] - [facility] 09/01/2023 14:08:26 4 text/html Mr. Roa was referred by Dr. Robles for tailbone pain with onset 6 months ago following sitting for an extended period of time at a band event. The patient has attempted to manage pain conservatively with a donut pillow, in addition to OTC medication and a muscle relaxant. The patient has not been seen since 08/2023. The patient presents to the clinic today for reassessment of pain. He complains of returning tailbone pain without radicular symptoms, which worsens with sitting. The patient is post ganglion impar block in 07/2023 which provided nearly 100% pain relief for over 8 months before the pain returned. He is inquiring about a repeat injection. Pain today is a 04/24. Initial complaint: chronic tailbone painOnset: 6 months agoContext: N/ACharacter: AcheLocation: TailboneDuration: Constant with fluctuationsInitial Intensity: 5/10Worse: Prolonged sittingBetter: StandingAssociated symptoms: Denies saddle anaesthesia, denies acute bowel/bladder changes, denies acute power loss.ADLs: The patient's pain interferes with daily chores, exercise, sleep, relationships, and walking.Current Pain Medications: NonePrior Pain Medications: N/ANSAIDS/OTC: IneffectiveNon-intervent ional Tx: At-home exercises/stretchesPhysi ayala Therapy: NoneInterventional Tx: NoneSurgery: NoneImaging/Studies: Pelvic x-ray and MRI Michele Sandoval MD [address], [place], [address], [facility] [place] 07/14/2024 11:43:35
--- NOTE | 2024-12-28 10:26 | ECG_ITS ---
APPROVED REPORT Exam: Resting ECG HR:61 bpm ECG Measurements Heart Rate 61 AXES OR 138 P 45 QRSd 100 QRS 15 QT 377 T 0 QTc 381 Conclusion SINUS RHYTHM NORMAL ECG UNCONFIRMED REPORT Electronically signed by : Aidan Ag MD 12/29/2024 08:02:26
[2024-12-28 10:31] VITALS: BMI 34.2
[2024-12-28 11:26] LABS: Basophils # 0.1 K/mm3 (0-0.2); Basophils % 0.7 % (0.1-2.0); Eosinophils # 0.2 K/mm3 (0.0-0.4); Eosinophils % 2.8 % (0.1-12.0); Hematocrit 43.4 % (42.0-52.0); Hemoglobin 14.1 g/dL (14.1-18.0); Lymphocytes # 1.9 K/mm3 (0.7-4.5); Lymphocytes % 27.3 % (10-50); Mean Corpuscular HGB Conc 32.5 g/dL (31.8-35.4); Mean Corpuscular Volume 86.3 fl (80-94); Mean Platelet Volume 10.6 fl (7.4-10.4); Monocytes # 0.6 K/mm3 (0.1-1.0); Monocytes % 7.8 % (1.7-9.3); Neutrophils # 4.3 K/mm3 (1.8-7.8); Neutrophils % 60.5 % (37.0-80.0); Nucleated Red Blood Cells # 0 10^3/uL; Nucleated Red Blood Cells % 0 %; Platelet Count 260 K/mm3 (142-424); Red Blood Count 5.03 M/mm3 (4.60-6.20); Red Cell Distribution Width 13.3 % (11.5-17.5); Red Cell Distribution Width-SD 41.4 fL
[2024-12-28 11:36] LABS: Chloride 105 mmol/L (98-107); Sodium 139 mmol/L (136-145)
[2024-12-28 11:37] LABS: Potassium 4.2 mmoL/L (3.5-5.1)
[2024-12-28 11:39] LABS: Blood Urea Nitrogen 10 mg/dl (9-20); Creatinine Clearance Estimated 183 mL/min (50-200); Estimated Glomerular Filt Rate 103 ml/min (>60); GFR (African American) 125 ML/MIN (>60)
[2024-12-28 11:40] LABS: Anion Gap 13.2 mEq/L (5-15); Calcium 9.2 mg/dl (8.4-10.2); Carbon Dioxide 25 mmol/L (22.0-30.0); Glucose 107 mg/dl (74-100)
== END 2024-12-28 23:59 | disposition home or self-care (01) ==
LOC: PREOP 09:55
PROVIDERS: PCP Nurse Practitioner Family; Visit Provider Orthopaedic Surgery
DX: Z01.810 Encounter for preprocedural cardiovascular examination (principal); Z01.812 Encounter for preprocedural laboratory examination
CPT/HCPCS: 80048; 85025; 93005

== ENCOUNTER 2024-12-29 09:52 | Outpatient (CLI) | payer BC, SELFPAY ==
[2024-12-29 10:39] LABS: Albumin Level 4.4 g/dl (3.5-5.0)
[2024-12-29 10:42] LABS: Alanine Aminotransferase 36 U/L (12-78); Aspartate Amino Transferase 26 U/L (17-59); Bilirubin,Unconjugated 0.6 mg/dL (0.0-1.1); Total Protein,Serum 7.1 g/dl (6.3-8.2); Triglycerides 192 mg/dl (30-150); VLDL Cholesterol 38 mg/dL (0-40)
[2024-12-29 10:43] LABS: Alkaline Phosphatase 79 U/L (38-126); Bilirubin,Direct 0.1 mg/dl (0.0-0.4); Bilirubin,Indirect 0.6 mg/dL (0.0-0.9); Bilirubin,Total 0.7 mg/dl (0.2-1.3); Chol/HDL Ratio 5.6 (1-3.5); Cholesterol 209 mg/dl (140-200); HDL Cholesterol 37 mg/dl (40-60)
[2024-12-29 10:54] LABS: Direct LDL Cholesterol 135.28 mg/dL (100-129)
[2024-12-29 11:14] LABS: Thyroid Stimulating Hormone 3.25 uIU/mL (0.465-4.68)
== END 2024-12-29 23:59 | disposition home or self-care (01) ==
LOC: LAB 09:53
PROVIDERS: PCP Nurse Practitioner Family; Visit Provider Nurse Practitioner Family
DX: R94.31 Abnormal electrocardiogram [ECG] [EKG] (principal); R07.9 Chest pain, unspecified; Z82.49 Family history of ischemic heart disease and other diseases of the circulatory system; Z68.35 Body mass index [BMI] 35.0-35.9, adult; I10 Essential (primary) hypertension
CPT/HCPCS: 36415; 80061; 80076; 84439; 84443

== ENCOUNTER 2025-01-19 08:35 | Outpatient (CLI) | payer BC, SELFPAY ==
--- OUTSIDE RECORDS SUMMARY | 2025-01-19 08:38 | XMS_ITS | Data Portability ---
Author Organization [place] - [facility] ADMIN Address [address] [place] [id number] Care Team Providers Care Forging Die Finisher Name Role Phone LEANA GOLDMAN Primary Care Provider [phone] Assessment Encounter Date Assessment Date Assessment LastModified [...] __ __ __ __ __ _ RESHMA: [id number] I have reviewed patient's RESHMA report prior to prescribing Schedule II, III, and IV medications that require review by law. [email or web address] Not available 05/15/2023 13:54:32 07/15/2023 07/15/2023 The [...] __ __ __ __ __ _ RESHMA: [id number] I have reviewed patient's RESHMA report prior to prescribing Schedule II, III, and IV medications that require review by law. Not available 07/15/2023 09:27:56 08/29/2023 08/29/2023 [facility] [place] [address]. This was a real-time clinical encounter over [[email or web address] ]. Consent was obtained to engage in [...] __ __ __ __ __ _ RESHMA: [id number] I have reviewed patient's RESHMA report prior to prescribing Schedule II, III, and IV medications that require review by law. [email or web address] Not available 09/01/2023 14:08:03 07/12/2024 07/12/2024 Mr. [...] for 6-8 weeks. 2022 023 [email or web address] 1 [facility], [address], [address], [place], [address], 3 15:45:37 Procedures sympathetic nerve block (PROC) - Ganglion of impar block. [address]. 2022 023 [email or web address] 308 Michele Sandoval MD, [address], [address], [place], [address], 3 10:54:44 Surgeries None recorded. Imaging None recorded. Medication Orders None recorded. Patient TargetsNo targets recorded. Patient Instructions Encounter Date Encounter Id Patient Instructions Last Modified By Organization Details Last Modified Time 07/12/2024 [id number] I counseled the patient extensively and informed [...] __ __ __ __ __ _ RESHMA: [id number] I have reviewed patient's RESHMA report prior to prescribing Schedule II, III, and IV medications that require review by law. [email or web address] Not available 07/13/2024 08:38:05 Reason for Referral Physical Therapist Referral for Pain in coccyx Refer to PT with focus on the pelvis (pelvic floor muscle exercises/stretches) 1-2x weekly for 6-8 weeks. Referring Physician: Michele Sandoval, Pain Management, Encounter Date: 05/15/2023 Problems Name Problem SNOMED Code Status Onset Date Resolution Date Notes Provider Name and Address Organization Details Recorded Time Hypertensiv e disorder 85427342 Active 2022 [place] Ally jane null, [place] - [facility] - [facility] & [place] 3 09:56:24 Sleep apnea 37259937 Active 2022 Sara Ally jane null, [place] - [facility] - [facility] & [place] 3 09:56:35 Chronic sacral pain for greater than three months 2935150386287 07 Active 2022 Nanci Mcdaniel null, [place] - [facility] - [facility] & [place] 3 09:23:24 Pain in buttock 205267253 Active 2022 Nanci Mcdaniel null, [place] - [facility] - [facility] & [place] 3 09:23:25 Pain in coccyx 00672373 Active 2022 Nanci barnett, [place] - [facility] - [facility] & [place] 3 09:23:26 Myofascial pain 951520835 Active 2022 Nanci [place], [place] - [facility] - [facility] & [place] 3 09:23:28 Problem Notes None recorded. Procedures Surgical History Date Name Laterality Status Provider Name and Address Organization Details Recorded Time 7 Other completed Poppy VELEZ - [facility] - [place] & [place] 07/12/2024 08:52:12 Knee Surgery completed Sara VELEZ - [facility] & [place] 05/15/2023 09:58:04 Imaging Results None [...] Updated DateTime 3 182.88 cm 20.8 kg/m2 24508.6 3 g 97.5 [degF] 97 % 97 % 74 /min 153 mm[Hg] 82 mm[Hg] Sara BAUER [facility] & [place] 3 10:06:36 Date Recorded Body height Body mass index (BMI) Body weight Body temperature Oxygen saturation Oxygen saturation in Arterial blood by Pulse oximetry Heart rate Systolic blood pressure Diastolic blood pressure Provider Name and Address Organization Details Last Updated DateTime 3 182.88 cm 34 kg/m2 182250. 68 g 97.1 [degF] 97 % 97 % 67 /min 129 mm[Hg] 86 mm[Hg] Sara BAUER [facility] & [place] 3 08:26:15 Date Recorded Body height Provider Name an d Address Organization Details Last Updated DateTime 08/29/2023 182.88 cm Poppy BAUER [facility] & [place] 08/29/2023 09:48:33 Date Recorded Body height Body mass index (BMI) Body weight Body temperature Oxygen saturation Oxygen saturation in Arterial blood by Pulse oximetry Heart rate Systolic blood pressure Diastolic blood pressure Provider Name and Address Organization Details Last Updated DateTime 4 182.88 cm 34 kg/m2 350657. 68 g 97.8 [degF] 97 % 97 % 74 /min 124 mm[Hg] 84 mm[Hg] Poppy BAUER [facility] & [place] 4 08:51:48 Social History Question Answer Notes LastModified by Organizat ion Details LastModified Time Tobacco Smoking Status Never Smoker AGUSTIN Collier [facility] & [place] 05/15/2023 09:57:47 Do You Or Have You [...] SNOMED-CT Code Diagnosis ICD10 Code Diagnosis Note [id number] Michele Sandoval MD [facility] [address] [facility] e [address] [place] [address] 05/15/2023 09:40:43 05/15/2023 10:53:41 Myofascial pain 044630574 M79.10 Pain in coccyx 00207749 M53.3 Chronic sa cral pain for greater than three months 1404179416 55190 M54.9 Pain in buttock 91155829 6 M79.18 [id number] ERIK FUNEZ PA-C [facility] [address] [address] 07/15/2023 07:59:40 07/15/2023 09:36:59 Myofascial pain 747410490 M79.10 Pain in coccyx 63942455 M53.3 Chronic sa cral pain for greater than three months 5093844068 20594 M54.9 Pain in buttock 38276808 6 M79.18 [id number] Michele Sandoval MD [facility] [address] [facility] e [address] [place] [address] 08/29/2023 09:46:12 08/29/2023 12:13:05 Myofascial pain 625505041 M79.10 Pain in coccyx 26952184 M53.3 Chronic sa cral pain for greater than three months 8104613624 13022 M54.9 Pain in buttock 86574802 6 M79.18 [id number] Michele Sandoval MD [facility] [address] [place] [address] 07/12/2024 08:31:27 07/12/2024 09:57:34 Pain in coccyx 93573100 M53.3 - Based on the patient's history [...] cral pain for greater than three months 5614403445 96050 M54.9 - MRI of sacrum/miki cyx shows old dislocatio n or fracture of the coccyx with mild edema. Pain in buttock 91420223 6 M79.18 Health Concerns Section Related Observation LastModified by Organization Detai ls LastModified Time None Recorded Concern Status LastModified by Organization Details LastModified Time None Recorded Advance Directives Directive None Recorded Payers Insurance Date Sequence Insurance Name Policy Number Policy Purcell Covered Member ID Purcell Member ID Guarantor Name 08/07/2024 1 [employer] ([id number]) [id number] Azam Roa [id number] Azam Roa Notes Date Note Type Note Provider Name [...] Pelvic x-ray and MRI Michele Sandoval MD [address], [place], [address], [facility] & [place] 05/15/2023 15:27:07 3 text/html The patient is [...] Pelvic x-ray and MRI ERIK FUNEZ PA-C [address], [place], [address], [facility] & [place] 07/15/2023 09:29:31 3 text/html The patient is [...] NoneImaging/Studies: Pelvic x-ray and MRI YESENIA LOZANO [address], [place], [address], [facility] - [place] - [place] & [place] 09/01/2023 14:08:26 4 text/html Mr. Roa was [...] a repeat injection. Pain today is a 8/10. Initial complaint: chronic tailbone painOnset: 6 months [...] Pelvic x-ray and MRI Michele Sandoval MD [address], [place], [address], [facility] - [place] & [place] 07/14/2024 11:43:35
--- NOTE | 2025-01-19 08:46 | CA_ITS ---
APPROVED REPORT EXAM: Comprehensive 2D, Doppler, and color-flow Echocardiogram Tar Pot Worker: Elizabeth Gross RT(R) Ht: 6 ft 0 in Wt: 254lbs BSA: 2.36 BP: 126/78 mmHg Indications: Chest pain, abnormal EKG, type 2 diabetes, hypertension, family history of hyperlipidemia 2D Dimensions LA Volume 26.00 mL LA Volume Index 11.02 mL/m2 (M/F) 16-34 EF AP4 56.20 % GL Strain -14.6 % M-Mode Dimensions RVDd 2.93 cm (0.9-2.6) LA Diam 2.67 cm (1.9-4.0) LVDd 5.17 cm (3.5-5.7) LVDs 3.76 cm (3.5-5.7) IVSd 0.87 cm (0.6-1.1) PWd 0.84 cm (0.6-1.1) EF (Teich) 52.70% FS 27.30% EDV (Teich) 127.80 mL ESV (Teich) 60.40 mL LV Diastology E Decel Time 217 (160-240 msec) E/A Ratio 1.4 Mitral Valve MV E Max Felton. 75.0 (40-130 cm/s) MV A Velocity 53.0 (40-130 cm/s) E/A Ratio 1.43 MV PHT 63.0 ms Left Ventricle The left ventricle is normal size. The left ventricular systolic function is normal. The left ventricular ejection fraction is within the normal range. There is normal left ventricular wall thickness. There is normal LV segmental wall motion. The left ventricular diastolic function is normal. LVEF is 55%. Right Ventricle The right ventricle is normal size. The right ventricular systolic function is normal. Atria The left atrium size is normal. The right atrium size is normal. There is no Doppler evidence of interatrial shunt. Aortic Valve The aortic valve opens well. There is no aortic valvular stenosis. No aortic regurgitation is present. Mitral Valve The mitral valve is normal in structure. No evidence of mitral valve stenosis. There is no mitral valve regurgitation noted. Tricuspid Valve Tricuspid valve is grossly normal in structure and function. Trace tricuspid regurgitation. There is insufficient TR jet to estimate RVSP. Pulmonic Valve The pulmonary valve is normal in structure. Trace pulmonic regurgitation. Great Vessels The aortic root is normal in size. IVC is normal in size and collapses >50% with inspiration. Pericardium There is no pericardial effusion. Other Information Study Quality: Adequate Conclusion Normal biventricular systolic function. No significant valvular stenosis or regurgitation. Electronically signed by : Debora Cook MD 01/24/2025 23:43:33
--- NOTE | 2025-01-19 10:00 | CA_ITS ---
APPROVED REPORT Exam: Exercise Treadmill Technologist: Pamela Gonzalez Ht: 6 ft 0 in Wt: 254 lbs BSA: 2.36 m2 HR: 59 bpm BP: 132/80 mmHg Rhythm: NSR Stress Test Details Test: Exercise stress testing was performed using a Yves protocol. HR Resting HR: 59 bpm Max Heart Rate (APMHR): 172 bpm Max HR Achieved: 148 bpm Target HR (85% APMHR): 146 bpm % of APMHR: 86 Recovery HR: 75 bpm HR response to stress: Normal HR response to stress BP Resting BP: 132.0/80.0 mmHg Max BP: 186.0/76.0 mmHg Recovery BP: 152.0/72.0 mmHg BP response to stress: Normal blood pressure response to stress. ECG Resting ECG: NSR, early repolarization pattern Stress EC.[address] depression Clinical Exercise duration: 7.04 min Exercise capacity: 8.9 METs Stress ECG Conclusion Symptoms: No shortness of breath or chest pain. Test stopped due to knee pain, and leg fatigue. Arrhythmias/Ectopy: PACs with exercise, PVCs with exercise. ST-T Changes: 0.[address] segment changes. Conclusion: Average exercise capacity. No evidence of ischemia on ECG at peak stress. However early repolarization pattern may affect the diagnostic interpretation of the study. Further evaluation with imaging modality (e.g. CCTA or nuclear stress test) may be suggested if clinically feasible and indicated. Electronically signed by : Debora Cook MD 01/19/2025 13:09:21
== END 2025-01-19 23:59 | disposition home or self-care (01) ==
LOC: RT 08:36
PROVIDERS: PCP Nurse Practitioner Family; Visit Provider Nurse Practitioner Family
DX: R94.31 Abnormal electrocardiogram [ECG] [EKG] (principal); R07.9 Chest pain, unspecified; Z82.49 Family history of ischemic heart disease and other diseases of the circulatory system; Z68.35 Body mass index [BMI] 35.0-35.9, adult; I10 Essential (primary) hypertension
CPT/HCPCS: 93017; 93018; 93306

== ENCOUNTER 2025-02-01 11:57 | Outpatient (CLI) | payer BC, SELFPAY ==
--- OUTSIDE RECORDS SUMMARY | 2025-02-01 11:59 | XMS_ITS | Data Portability ---
Author Organization [place] - [facility] ADMIN Address [address] [place] [id number] Care Team Providers Care Test Grader Name Role Phone LEANA GOLDMAN Primary Care Provider Assessment Encounter Date Assessment Date Assessment LastModified [...] __ __ __ __ __ _ RESHMA: [id number] I have reviewed patient's RESHMA report prior to prescribing Schedule II, III, and IV medications that require review by law. [email or web address] Not available 05/15/2023 13:54:32 07/15/2023 07/15/2023 The [...] __ __ __ __ __ _ RESHMA: [id number] I have reviewed patient's RESHMA report prior to prescribing Schedule II, III, and IV medications that require review by law. [email or web address] Not available 07/15/2023 09:27:56 08/29/2023 08/29/2023 [facility] [place] [address]. This was a real-time clinical encounter over [[email or web address] ]. Consent was obtained to engage in [...] __ __ __ __ __ _ RESHMA: [id number] I have reviewed patient's RESHMA report prior to prescribing Schedule II, III, and IV medications that require review by law. [email or web address] Not available 09/01/2023 14:08:03 07/12/2024 07/12/2024 Mr. [...] weeks. 2022 023 [email or web address] 1 [facility], [address], [place], [address], 3 15:45:37 Procedures sympathetic nerve block (PROC) - Ganglion of impar block. [address]. 2022 023 [email or web address] 308 Michele Sandoval MD, [address], [address], [place], [address], 3 10:54:44 Surgeries None recorded. Imaging None recorded. Medication Orders None recorded. Patient TargetsNo targets recorded. Patient Instructions Encounter Date Encounter Id Patient Instructions Last Modified By Organization Details Last Modified Time 07/12/2024 [id number] I counseled the patient extensively and informed [...] __ __ __ __ __ _ RESHMA: [id number] I have reviewed patient's RESHMA report prior to prescribing Schedule II, III, and IV medications that require review by law. [email or web address] Not available 07/13/2024 08:38:05 Reason for Referral Physical Therapist Referral for Pain in coccyx Refer to PT with focus on the pelvis (pelvic floor muscle exercises/stretches) 1-2x weekly for 6-8 weeks. Referring Physician: Michele Sandoval, Pain Management, Encounter Date: 05/15/2023 Problems Name Problem SNOMED Code Status Onset Date Resolution Date Notes Provider Name and Address Organization Details Recorded Time Hypertensiv e disorder 64885201 Active 2022 [place] Ally jane null, [place] - [facility] - [facility] & [place] 3 09:56:24 Sleep apnea 56011355 Active 2022 Sara Ally jane null, [place] - [facility] - [facility] & [place] 3 09:56:35 Chronic sacral pain for greater than three months 9705887426253 07 Active 2022 Nanci Mcdaniel null, [place] - [facility] - [facility] & [place] 3 09:23:24 Pain in buttock 545707584 Active 2022 Nanci Mcdaniel null, [place] - [facility] - [facility] & [place] 3 09:23:25 Pain in coccyx 98259170 Active 2022 Nanci barnett, [place] - [facility] - [facility] & [place] 3 09:23:26 Myofascial pain 363949891 Active 2022 Nanci barnett, [place] - [facility] - [facility] & [place] 3 09:23:28 Problem Notes None recorded. Procedures Surgical History Date Name Laterality Status Provider Name and Address Organization Details Recorded Time 7 Other completed Poppy VELEZ - [facility] - [place] & [place] 07/12/2024 08:52:12 Knee Surgery completed Sara [facility]LEZ - [facility] & [place] 05/15/2023 09:58:04 Imaging Results None recorded. Procedure [...] Updated DateTime 3 182.88 cm 20.8 kg/m2 50251.6 3 g 97.5 [degF] 97 % 97 % 74 /min 153 mm[Hg] 82 mm[Hg] [place] [facility] [place] 3 10:06:36 Date Recorded Body height Body mass index (BMI) Body weight Body temperature Oxygen saturation Oxygen saturation in Arterial blood by Pulse oximetry Heart rate Systolic blood pressure Diastolic blood pressure Provider Name and Address Organization Details Last Updated DateTime 3 182.88 cm 34 kg/m2 713474. 68 g 97.1 [degF] 97 % 97 % 67 /min 129 mm[Hg] 86 mm[Hg] [facility] & [place] 3 08:26:15 Date Recorded Body height Provider Name an d Address Organization Details Last Updated DateTime 08/29/2023 182.88 cm [facility] 08/29/2023 09:48:33 Date Recorded Body height Body mass index (BMI) Body weight Body temperature Oxygen saturation Oxygen saturation in Arterial blood by Pulse oximetry Heart rate Systolic blood pressure Diastolic blood pressure Provider Name and Address Organization Details Last Updated DateTime 4 182.88 cm 34 kg/m2 309582. 68 g 97.8 [degF] 97 % 97 % 74 /min 124 mm[Hg] 84 mm[Hg] Poppy Benito AGUSTIN [facility] & [place] 4 08:51:48 Social History None recorded. Functional Status Question Answer Note LastModified by Organization D etails LastModified Time Do you or have you ever used any other forms of tobacco or nicotine? No [email or web address] Information not available 08/29/2023 Mental Status None recorded. Family History Relationship Description Onset Age of this Age Resolved Age Notes LastModified by Organization Details LastModified Time Mother Hypertensive disorder [email or web address] Not available 09:57:03 Father Hypertensive disorder [email or web address] Not available 09:57:18 Father Atrial fibrillation [email or web address] Not available 07:35:59 Medical History Condition Response Hypertension Y Past Encounters Encounter ID Performer Location Encounter Start Date Encounter Closed Date Diagnosis/Indication Diagnosis SNOMED-CT Code Diagnosis ICD10 Code Diagnosis Note [id number] Michele Sandoval MD [facility] [address] [address] 05/15/2023 09:40:43 05/15/2023 10:53:41 Myofascial pain 837853022 M79.10 Pain in coccyx 87462363 M53.3 Chronic sa cral pain for greater than three months 5119269888 83905 M54.9 Pain in buttock 55396489 6 M79.18 [id number] ERIK FUNEZ PA-C [facility] [address] [address] 07/15/2023 07:59:40 07/15/2023 09:36:59 Myofascial pain 421329374 M79.10 Pain in coccyx 72278955 M53.3 Chronic sa cral pain for greater than three months 5800911452 46365 M54.9 Pain in buttock 80455888 6 M79.18 [id number] Michele Sandoval MD [facility] [address] [address] 08/29/2023 09:46:12 08/29/2023 12:13:05 Myofascial pain 664233403 M79.10 Pain in coccyx 79282926 M53.3 Chronic sa cral pain for greater than three months 5991705663 72433 M54.9 Pain in buttock 05222044 6 M79.18 [id number] Michele Sandoval MD [facility] [address] [place] [address] 07/12/2024 08:31:27 07/12/2024 09:57:34 Pain in coccyx 98320300 M53.3 - Based on the patient's history [...] cral pain for greater than three months 4462766215 36029 M54.9 - MRI of sacrum/miki cyx shows old dislocatio n or fracture of the coccyx with mild edema. Pain in buttock 65456113 6 M79.18 Health Concerns Section Related Observation LastModified by Organization Detai ls LastModified Time None Recorded Concern Status LastModified by Organization Details LastModified Time None Recorded Advance Directives Directive None Recorded Payers Insurance Date Sequence Insurance Name Policy Number Policy Purcell Covered Member ID Purcell Member ID Guarantor Name 08/07/2024 1 [place]) [id number] Azam Roa [id number] Azam Roa Notes Date Note Type Note [...] Pelvic x-ray and MRI Michele Sandoval MD [address] [facility], [place], [address], [place] - [facility] & [place] 05/15/2023 15:27:07 3 text/html The patient is [...] Pelvic x-ray and MRI ERIK FUNEZ PA-C [address], [place], [address], [place] - [facility] & [place] 07/15/2023 09:29:31 3 text/html The patient is [...] Pelvic x-ray and MRI YESENIA LOZANO [address] [facility], [place], [address], [facility] & [place] 09/01/2023 14:08:26 4 text/html Mr. Roa was [...] Pelvic x-ray and MRI Michele Sandoval MD [address], [place], [address], [facility] - [place] - [place] & [place] 07/14/2024 11:43:35
[2025-02-01 12:08] VITALS: BMI 34.4
[2025-02-01 12:20] VITALS: BP 148/74; PULSE 68; RESP 18; TEMP 36.5; O2SAT 96
[2025-02-01] MEDS: METOPROLOL TARTRATE 50MG TABLET PO (12:27)
[2025-02-01 12:36] LABS: Chloride 105 mmol/L (98-107); Sodium 140 mmol/L (136-145)
[2025-02-01 12:39] LABS: Blood Urea Nitrogen 12 mg/dl (9-20); Creatinine Clearance Estimated 147 mL/min (50-200); Estimated Glomerular Filt Rate 80 ml/min (>60); GFR (African American) 97 ML/MIN (>60)
[2025-02-01 12:40] LABS: Calcium 9.4 mg/dl (8.4-10.2); Carbon Dioxide 29 mmol/L (22.0-30.0); Glucose 102 mg/dl (74-100)
[2025-02-01 12:49] VITALS: BP 154/102; PULSE 65; RESP 16; O2SAT 97
[2025-02-01] MEDS: NITROGLYCERIN 0.4MG SL TABLET SL (12:49)
[2025-02-01 12:52] VITALS: BP 124/74; PULSE 60; RESP 16; O2SAT 96
[2025-02-01 12:55] VITALS: BP 125/75; PULSE 60; RESP 16; O2SAT 95
--- NOTE | 2025-02-01 13:00 | CT_ITS ---
APPROVED REPORT Material Disposition Inspector: CLINICAL INDICATION Chest Pain TECHNIQUE Image Acquisition: A 128 slice MDCT scanner (IJJ CORPa View) was used for data acquisition. A noncontrast coronary calcium scan was performed. A CT attenuation threshold of 130 Hounsfield units (HU) was used for the detection of calcium in contiguous voxels of 1 sq mm in area to be counted as individual lesions. Bolus tracking in the ascending aorta with a threshold of 180 HU was performed. Immediately afterwards, ECG synchronized cardiac CT was then performed from the cardiac base to apex using retrospective gating with ECG tube current modulation. A total of 85 mL of Isovue 370 mg/mL contrast medium was administered at 5 mL/sec followed by a saline flush using a biphasic injection protocol. A tube voltage of 120 KVp was used. The patient received the following medications prior to the cardiac CT. 25 mg of oral metoprolol 0.8 mg of sublingual nitroglycerin The average heart rate at the time of acquisition was 60 bpm and regular. Image Reconstruction Transaxial images were reconstructed at 0.67 mm slide thickness. Data was reviewed interactively on an advanced workstation capable of 2 and 3-dimensional displays in all conventional reconstruction formats, including multiplanar reformations, maximum intensity projections, curved multiplanar reformations, and volume rendered reconstructions. When applicable, selected routine images describing the relevant coronary anatomy and pathology were saved and sent to PACS. Complications None Technical Quality Overall image quality was good. Coronary artery opacification was adequate. Total DLP (Dose-Length Product) is 1442.5 mGy-cm. The reported value represents the total of one or more individual components during the CT acquisition of this date and at this time, and as such, the same value may appear in more than one CT report depending on the interpreting/reporting physicians. COMPARISON None FINDINGS CT Coronary Calcium Scoring LMA (Left Main Artery) = 38 LAD (Left Anterior Descending) = 0 LCX (Left Coronary Circumflex) = 13 RCA (Right Coronary Artery) = 0 Total Calcium Score = 51 using the AJ-130 method. The observed calcium score of 51 is at 86th percentile for subjects of the same age, sex, and race/ethnicity. The interpretation of the calcium heart score is based on the following continuum*: 0 = no calcified plaque detected (risk of coronary artery disease is very low ??? less than 5%) 1-10 = calcium detected in extremely minimal levels (risk of coronary diseases is still low ??? less than 10%) 11-100 = mild levels of plaque detected with certainty (mild or minimal narrowing of heart arteries is likely) 101-400 = definite,at least moderate levels of plaque detected (relatively high risk of a heart attack within 3-5 years) >401-999 = extensive levels of plaque detected (high risk of heart attack, high levels of vascular disease are present, high likelihood of at least one significant coronary narrowing) *The calcium heart score quantifies the burden of coronary calcification/plaque in the coronary arteries. The calcium heart score is not able to evaluate the presence or burden of non-calcified (i.e. soft) plaque. There is no identifiable calcification in the aortic valve, mitral annulus or mitral valve, pericardium, or myocardium. Coronary CT Angiography The coronary arterial system is right dominant. Quantitative Stenosis Grading: Left Main (LM): The left main originates normally from the left sinus of Valsalva. The LM bifurcates into the left anterior descending artery and left circumflex artery. There is calcified plaque in the ostial LM, with no evidence of luminal stenosis. Left Anterior Descending (LAD) and Diagonal Branches: The LAD gives off 3 diagonal branch(es). The LAD and its branches are patent with no evidence of atherosclerosis. There is no evidence of LAD-myocardial bridge. Left Circumflex (LCX) and Obtuse Marginals (OM): The LCX gives off 1 Obtuse Marginal (OM) branch(es). The LCX and its branches are patent with no evidence of atherosclerosis. Right Coronary Artery (RCA): The RCA originates normally from the right sinus of Valsalva. The RCA gives off a posterior descending artery (PDA) and posterolateral (PL) branches. There is calcification in the proximal RCA segment with no evidence of luminal stenosis. Non-Coronary Cardiac Findings: Analysis of the left ventricular (LV) structure and function was performed after 3-D reconstruction of the LV from axial images, with user-corrected automatic contouring for assessment of LV volumes and user-defined reconstruction from oblique planes for measurement of 3-D cardiac structure and function. -The left ventricle systolic function is normal. -There is no left atrial appendage filling defect. Two right pulmonary veins and two left pulmonary veins drain normally into the left atrium. -No pericardial thickening or calcification. -Central and branch pulmonary arteries in the [id number] are unremarkable. -Thoracic aorta within the visualized thoracic aortic-branches in the [id number] is unremarkable. Extracardiac Structures No significant extra-cardiac findings. Note, however, that this study is focused on the cardiac findings. IMPRESSION - Presence of coronary calcification with an Agatston score = 51 using the AJ-130 method. -The observed calcium score of 51 is at 86th percentile for subjects of the same age, sex, and race/ethnicity. - No evidence of significant flow-limiting atherosclerosis of the coronary arteries. -CAD-RADS 1. Management recommendations per ACC/AHA guidelines*, as clinically appropriate. *Recommendations: CAD RADS 0: Reassurance. Consider non-atherosclerotic causes of chest pain. CAD RADS 1: Consider non-atherosclerotic causes of chest pain. Consider preventive therapy and risk factor modification. CAD RADS 2: Consider non-atherosclerotic causes of chest pain. Consider preventive therapy and risk factor modification, particularly for patients with nonobstructive plaque in multiple segments. CAD RADS 3: Consider further functional testing. Consider symptom-guided anti-ischemic and preventive pharmacotherapy as well as risk factor modification per published guideline statements. CAD RADS 4A: Consider further functional testing or invasive coronary angiography with revascularization per published guideline statements. Consider symptom-guided anti-ischemic and preventive pharmacotherapy as well as risk factor modification per published guideline statements. CAD RADS 4B: Invasive coronary angiography recommended with revascularization per published guideline statements. Consider symptom-guided anti-ischemic and preventive pharmacotherapy as well as risk factor modification per published guideline statements. CAD RADS 5: Consider invasive angiography and/or viability assessment with revascularization per published guideline statements. Consider symptom-guided anti-ischemic and preventive pharmacotherapy as well as risk factor modification per published guideline statements. CRITICAL RESULT None COMMUNICATION Per this written report The coronary and cardiac findings of this CCTA were reviewed, reported, and signed by Richard Cook MD (Glass Grinder) Conclusion Electronically signed by : Debora Cook MD 02/03/2025 12:42:21
[2025-02-01 13:05] VITALS: BP 115/69; PULSE 72; RESP 18; O2SAT 94
[2025-02-01] MEDS: 0.9 % SODIUM CHLORIDE 50 ML VIAL IV (13:07)
[2025-02-01] MEDS: IOPAMIDOL-370 (76%);100ML BOTTLE 80 ML IV (13:07)
[2025-02-01] MEDS: SODIUM CHLORIDE 0.9% 10ML SYR (RAD ONLY) 10 ML IV (13:07)
== END 2025-02-01 13:10 | disposition home or self-care (01) ==
PROVIDERS: PCP Nurse Practitioner Family; Visit Provider Nurse Practitioner Family
DX: I25.118 Atherosclerotic heart disease of native coronary artery with other forms of angina pectoris (principal)
CPT/HCPCS: 75574; 80048; Q9967

== ENCOUNTER 2025-03-15 11:01 | Outpatient (CLI) | payer BC, SELFPAY ==
--- OUTSIDE RECORDS SUMMARY | 2024-12-18 17:30 | XMS_ITS ---
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 Name Role Phone Aidan Ag Primary Care Provider Migration, Provider Unavailable Unavailable REASON FOR VISIT Multum To Medispan Conversion Encounter Medications Medication SIG (Take, Route, Fr equency, Duration) Notes Start Date End Date Status Lisinopril 20 MG 1 tab(s) orally once a day; Duration: 30 day(s) Active metFORMIN HCl 500 MG 1 tab(s) orally 2 t imes a day; Duration: 30 day(s) 12/19/2021 Active Encounters Encounter Location Date Provider Diagnosis [facility] [address] [facility] [address] [place] [address] 12/18/2024 Provider Migration Plan Of Treatment No Information Progress Notes * CRISPINGama BAPTISTEOB:1975 (49 yo M)Acc No.[id number]:12/18/2024 Patient: Azam TIDWELL Provider: Dari acevedo Migration :1975 A ge:49 Y S ex:Male Date:12/18/2024 Address:[address], [place] Pcp:Aidan Ag Subjective: * Chief Complaints: * 1 . Multum To Medispan Conversion Encounter. * Medical History: * Medications: T aking Lisinopril 20 MG Tablet 1 tab(s) orally once a day , Taking metFORMIN HCl 500 MG Tablet 1 tab(s) orally 2 times a day Objective: * Vitals: Assessment: Plan: * Treatment: * * Electronic signature of Prov ider Migration on 03/15/2025 at 11:04 AM EDT Sign off status: Pending * Provider: Dari acevedo Migration Date: 0 12/18/2024 Generated for Sly nguyen/Willy/Alfonzo on: 0 03/15/2025 11:04 AM EDT
--- OUTSIDE RECORDS SUMMARY | 2025-03-15 11:04 | XMS_ITS | Encounter Summary ---
Author Organization [facility] Address [address] 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 Name Role Phone Unavailable Primary Care Provider Unavailabl e Reason for Referral * Consultation (Routine) - Closed Specialty Diagnoses / Procedures Referred By Deloris t Referred To Contact Dentist / Pain Medicine Diagnoses DANNI (obstructive sleep apnea) Elvira Park MD [address] [facility] [address] [place] [address] Phone: tel: fax: Mary Alice Cardoso, DDS [address] [place] [address] Phone: tel: fax: Referral ID Status Reason Start Date Expiration Date Visits Re quested Visits Authorized [id number] Closed 08/04/2024 02/03/2026 1 1 Encounter Details Date Type Department Care Team (Late st Contact Info) Description 08/04/2024 [facility] [address] [place] [address] Elvira Park MD [address] [facility] [address] [place] [address] DANNI (obstructive sleep apnea) (Primary Dx) Social History Tobacco Use Types Packs/Day Years Used Date Smoking Tobacco: Never Assessed Sex and Gender Information Value Date Recorded Sex Assigned at Not on file Legal Sex Male 8:03 PM EDT Gender Identity Not on file Sexual Orientation Not on file documented as of this encounter Plan of Treatment Scheduled Referrals Name Type Priority Associated Diagnoses Order Schedule Ambulatory Referral to Orofacial Pain Outpatient Referral Routine DANNI (obstructive sleep apnea) Expected: 08/04/2024 (Approximate), Expires: 02/01/2026 documented as of this encounter Visit Diagnoses Diagnosis DANNI (obstructive sleep apnea)- Primary Obstructive sleep apnea (adult) (pediatric) documented in this encounter
--- OUTSIDE RECORDS SUMMARY | 2025-03-15 11:04 | XMS_ITS | Data Portability ---
Author Organization [place] - [facility] - [place] & [place] [facility] ADMIN Address [address] [place] [id number] Care Team Providers Care Travel [place] Name Role Phone LEANA GOLDMAN Primary Care [...] __ __ __ __ __ _ RESHMA: [id number] I have reviewed patient's RESHMA report prior to prescribing Schedule II, III, and IV medications that require review by law. [email or web address] Not available 05/15/2023 13:54:32 07/15/2023 07/15/2023 The [...] __ __ __ __ __ _ RESHMA: [id number] I have reviewed patient's RESHMA report prior to prescribing Schedule II, III, and IV medications that require review by law. [email or web address] Not available 07/15/2023 09:27:56 08/29/2023 08/29/2023 [facility] [place] [place] [address]. This was a real-time clinical encounter over [[email or web address] ]. Consent was obtained to engage in [...] __ __ __ __ __ _ RESHMA: [id number] I have reviewed patient's RESHMA report prior to prescribing Schedule II, III, and IV medications that require review by law. [email or web address] Not available 09/01/2023 14:08:03 07/12/2024 07/12/2024 Mr. Roa was referred by Dr. Robles for tailbone pain with onset 6 months ago following sitting for an extended period of time at a band event. The patient has attempted to manage pain conservatively with a donut pillow, in addition to OTC medication and a muscle relaxant. [email or web address] Not available 07/13/2024 08:38:48 Plan of Treatment Reminders Order Date Submit Date Provider Last Modified By Organization Details Last Modified Time Details Appointments None recorded. Lab None recorded. Referral physical therapist referral - Refer to PT with focus on the pelvis (pelvic floor muscle exercises/s tretches) 1-2x weekly for 6-8 weeks. 2022 023 [email or web address] 1 [facility], [address], [place], [address], 3 15:45:37 Procedures sympathetic nerve block (PROC) - Ganglion of impar block. [address]. 2022 023 [email or web address] 308 Michele Sandoval MD, [facility], [address], [place], [address], 3 10:54:44 Surgeries None recorded. Imaging None recorded. Medication Orders None recorded. Patient TargetsNo targets recorded. Patient Instructions Encounter Date Encounter Id Patient Instructions Last Modified By Organization Details Last Modified Time 07/12/2024 [id number] I counseled the patient extensively and informed [...] __ __ __ __ __ _ RESHMA: [id number] I have reviewed patient's RESHMA report prior to prescribing Schedule II, III, and IV medications that require review by law. [email or web address] Not available 07/13/2024 08:38:05 Reason for Referral Physical Therapist Referral for Pain in coccyx Refer to PT with focus on the pelvis (pelvic floor muscle exercises/stretches) 1-2x weekly for 6-8 weeks. Referring Physician: Michele Sandoval, Pain Management, Encounter Date: 05/15/2023 Problems Name Problem SNOMED Code Status Onset Date Resolution Date Notes Provider Name and Address Organization Details Recorded Time [employer] disorder 04783251 Active 2022 [place] Ally jane null, [facility] - [facility] - [place] & [place] 3 09:56:24 Sleep apnea 24874667 Active 2022 [place] Ally jane null, [facility] - [facility] & [place] 3 09:56:35 Chronic sacral pain for greater than three months 4415087797410 07 Active 2022 Nanci Mcdaniel null, [facility] - [facility] & [place] 3 09:23:24 Pain in buttock 452060928 Active 2022 Nanci Mcdaniel null, [facility] - [facility] & [place] 3 09:23:25 Pain in coccyx 65065864 Active 2022 Nanci barnett, [facility] - [facility] & [place] 3 09:23:26 Myofascial pain 759005765 Active 2022 Nanci Mcdaniel null, [facility] - [facility] & [place] 3 09:23:28 Problem Notes None recorded. Procedures Surgical History Date Name Laterality Status Provider Name and Address Organization Details Recorded Time 7 Other completed Poppy Huang [facility] - [place] [facility] [place] 07/12/2024 08:52:12 Knee Surgery completed Sara Trish VELEZ - [facility] - [place] 05/15/2023 09:58:04 Imaging Results None [...] Updated DateTime 3 182.88 cm 20.8 kg/m2 96798.6 3 g 97.5 [degF] 97 % 97 % 74 /min 153 mm[Hg] 82 mm[Hg] [place] [facility] 10[facility]06:36 Date Recorded Body height Body mass index (BMI) Body weight Body temperature Oxygen saturation Oxygen saturation in Arterial blood by Pulse oximetry Heart rate Systolic blood pressure Diastolic blood pressure Provider Name and Address Organization Details Last Updated DateTime 4 182.88 cm 34 kg/m2 099952. 68 g 97.8 [degF] 97 % 97 % 74 /min 124 mm[Hg] 84 mm[Hg] Poppy Benito [facility] 4 08:51:48 Date Recorded Body height Body mass index (BMI) Body weight Body temperature Oxygen saturation Oxygen saturation in Arterial blood by Pulse oximetry Heart rate Systolic blood pressure Diastolic blood pressure Provider Name and Address Organization Details Last Updated DateTime 3 182.88 cm 34 kg/m2 402233. 68 g 97.1 [degF] 97 % 97 % 67 /min 129 mm[Hg] 86 mm[Hg] [facility] 3 08:26:15 Date Recorded Body height Provider Name an d Address Organization Details Last Updated DateTime 08/29/2023 182.88 cm [facility] 08/29/2023 09:48:33 Social History None recorded. Functional Status Question [...] [email or web address] Not available 09:57:18 Father Atrial fibrillation [email or web address] Not available 07:35:59 Medical History Condition Response Hypertension Y Past Encounters Encounter ID Performer Location Encounter Start Date Encounter Closed Date Diagnosis/Indication Diagnosis SNOMED-CT Code Diagnosis ICD10 Code Diagnosis Note [id number] Michele Sandoval MD [facility] [address] [facility] e [address] [place] [address] 05/15/2023 09:40:43 05/15/2023 10:53:41 Myofascial pain 317889198 M79.10 Pain in coccyx 98406806 M53.3 Chronic sa cral pain for greater than three months 7445248114 49520 M54.9 Pain in buttock 45636688 6 M79.18 [id number] ERIK FUNEZ PA-C [facility] [address] [address] 07/15/2023 07:59:40 07/15/2023 09:36:59 Myofascial pain 396036965 M79.10 Pain in coccyx 67322180 M53.3 Chronic sa cral pain for greater than three months 8016394017 74492 M54.9 Pain in buttock 39265046 6 M79.18 [id number] Michele Sandoval MD [facility] [address] [address] 08/29/2023 09:46:12 08/29/2023 12:13:05 Myofascial pain 652306389 M79.10 Pain in coccyx 80886271 M53.3 Chronic sa cral pain for greater than three months 7708314058 08216 M54.9 Pain in buttock 78595314 6 M79.18 [id number] Michele Sandoval MD [facility] [address] [place] [address] 07/12/2024 08:31:27 07/12/2024 09:57:34 Pain in coccyx 21617813 M53.3 - Based on the patient's history [...] cral pain for greater than three months 8258375784 13895 M54.9 - MRI of sacrum/miki cyx shows old dislocatio n or fracture of the coccyx with mild edema. Pain in buttock 28623635 6 M79.18 Health Concerns Section Related Observation LastModified by Organization Detai ls LastModified Time None Recorded Concern Status LastModified by Organization Details LastModified Time None Recorded Advance Directives Directive None Recorded Payers Insurance Date Sequence Insurance Name Policy Number Policy Purcell Covered Member ID Purcell Member ID Guarantor Name 08/07/2024 1 [employer] [id number] Azam Roa [id number] Azam Roa Notes Date Note Type Note [...] NoneSurgery: NoneImaging/Studies: Pelvic x-ray and MRI Michele aSndoval MD [address] , [place], [address], [place] - [facility] & [place] 05/15/2023 15:27:07 3 text/html The patient is [...] MRI ERIK FUNEZ PA-C [address], [place], [address], [place] - [facility] & [place] 07/15/2023 09:29:31 3 text/html The patient is [...] Pelvic x-ray and MRI YESENIA LOZANO [address] [facility], [place], [address], [facility] & [place] 09/01/2023 14:08:26 4 text/html Mr. Roa was [...] Pelvic x-ray and MRI Michele Sandoval MD [address], [place], [address], [facility] - [place] 07/14/2024 11:43:35
--- OUTSIDE RECORDS SUMMARY | 2025-03-15 11:04 | XMS_ITS | Data Portability ---
Author Organization [facility] BING Aceves [place] CLOSED Address [address] [place] [address] Care Team Providers Care Agents' Records Clerk Name Role Phone LEANA GOLDMAN Primary Care Provider Assessment No assessment recorded. Plan of Treatment Reminders Order Date Submit Date Provider Last Modified By Organization Details Last Modified Time Details Appointments None recorded. Lab None recorded. Referral None recorded. Procedures intraderm al allergy skin testing (PROC) 2020 021 [facility] Of Service Professional Charges, [address] [facility], [facility] [address], [place], [address], 10:33:09 Surgeries None recorded. Imaging None recorded. Medication Orders Nasacort 55 mcg nasal spray aerosol 2020 021 [id number], [address] [address] [place], [place], [phone], 10:33:09 Patient TargetsNo targets recorded. Patient Instructions Encounter Date Encounter Id Patient Instructions Last Modified By Organization Details Last Modified Time 10/10/2020 [id number] enlarged turbinates: care [facility] Not available 10/10/2020 10:33:09 1. Nasal endosco py performed today - Full risks, complications, and benefits of operative versus non-operative intervention have been thoroughly discussed. Understanding was expressed, informed consent given, and we will proceed with the discussed in office treatment plan. There were no questions for me at the end of the office visit. 2. CT scan of the sinuses recommended and ordered. 3. Advised the patient to discontinue OTC Afrin. 4. RX: Nasacort - 1 spray in each nostril TID 5. MQT discussed and ordered. 6. Consider septoplasty, bilateral SMR turbinates (reflex) and latera implants. 7. Follow up visit with MQT and CT scan results or sooner if concerns arise. maria luisa Not available 10/10/2020 09:54:56 11/16/2020 [id number] allergies: care instructions gosetinsky Not available 11/16/2020 17:20:57 managing your allergies: care instructions gosetinsky Not available 11/16/2020 17:20:57 enlarged turbinates: care instructions gosetinsky Not available 11/16/2020 17:20:[address] scan of th e sinuses reviewed. 2. Septoplasty, Bilateral SMR Turbinates and Excision of left Keeley Bullosectomy, Possible Latera implant - Full risks, complications, and benefits of operative versus non-operative intervention have been thoroughly discussed. Understanding was expressed, informed consent given, and we will proceed with the discussed operative treatment plan. There were no questions for me at the end of the office visit. 3. Follow up visit postoperatively or sooner if concerns arise. madina Not available 11/16/2020 17:39:44 01/02/2021 [id number] allergies: care instructions coreyetinsky Not available 01/02/2021 16:21:40 managing your allergies: care instructions gosetinsky Not available 01/02/2021 16:21:40 enlarged turbinates: care instructions gosetinsky Not available 01/02/2021 16:21:40 1. Bilateral splint removal performed today. 2. Recommended using a saline rinse in both sides of his nose several times a day. 3. Recommended he use AYR gel in both sides of his nose at night. 4. Follow up visit in 2 months or sooner if concerns arise. maria luisa Not available 01/02/2021 13:42:46 Reason for Referral None Reported. Results Created Date Observation Date Name Description Value Unit Range Abnormal Flag Note LastModifiedBy Organization Detail LastModifiedTime 11/17/1911/16/2020 CT, sinus es, w/o contr ast [address] [place] [address] Evangelista calvert Name: STEVEN calvert : [phone] Evangelista calvert Orderi ng Provid er: TABBY Conrad V OSNOVA SAAD EXAM DATE: 2020 EXAM: CT SINUS WITHOU T CONTRA ST HISTOR Y: Nasal conges tion. Headac hes. Sinusi tis COMPAR MANUEL: None. TECHNI QUE: 1.0 mm axial direct images were obtain ed, and axial, lugo l, and sagitt al recons tructi on images were genera joann from the source images . FINDIN GS: Maxill sol sinuse s: Subtle minima l mucosa l thicke salvador in the inferi or left maxill sol sinus. . Ostia: The left and right osteom eatal units and fronta l sinus ostia are patent . Both OMCs are narrow ed appear ing Ethmoi d sinuse s: The ethmoi d sinuse s are clear. . Fronta l sinuse s: The fronta l sinuse s are clear. Spheno id sinuse s: The spheno id sinuse s appear clear. Nasal septum and nasal passag es: The nasal septum is deviat ed to the right 5 mm. 8 mm left keeley bullos a. There is mild mucosa l hypert rophy of the nasal turbin ates. The visual ized brain parenc hyma appear s normal . The orbits are normal in appear ance. No paraph arynge al mass is identi fied. The visual ized mastoi d air cells appear normal . IMPRES TIM: 1. Sinuse s are effect ively clear 2. Nasal septal deviat ion to the right with mild mucosa l hypert rophy of the nasal turbin ates Interp reted By: Wiley Orosco MD Electr onical ly Signed By: Wiley Orosco MD on 11/17/19 21 1:09 PM [facility] Radiology [address], [address], 11/16/2020 17:24:51 Result Notes Documentation Provider Name and Address Organization Details Recorded Time Ct, Sinuses, W/o Contrast : [facility] [address] [place] [address] Patient Name: STEVEN ROA Patient : 1975 Patient Ordering Provider: JAMA SANTOS EXAM DATE: 11/16/2020 EXAM: CT SINUS WITHOUT CONTRAST HISTORY: Nasal congestion. Headaches. Sinusitis COMPARISON: None. TECHNIQUE: 1.0 mm axial direct images were obtained, and axial, coronal, and sagittal reconstruction images were generated from the source images. FINDINGS: Maxillary sinuses: Subtle minimal mucosal thickening in the inferior left maxillary sinus.. Ostia: The left and right osteomeatal units and frontal sinus ostia are patent. Both OMCs are narrowed appearing Ethmoid sinuses: The ethmoid sinuses are clear.. Frontal sinuses: The frontal sinuses are clear. Sphenoid sinuses: The sphenoid sinuses appear clear. Nasal septum and nasal passages: The nasal septum is deviated to the right 5 mm. 8 mm left keeley bullosa. There is mild mucosal hypertrophy of the nasal turbinates. The visualized brain parenchyma appears normal. The orbits are normal in appearance. No parapharyngeal mass is identified. The visualized mastoid air cells appear normal. IMPRESSION: 1. Sinuses are effectively clear 2. Nasal septal deviation to the right with mild mucosal hypertrophy of the nasal turbinates Interpreted By: [place] [address] [place] [address], [phone], [facility] 11/16/2020 17:24:51 Problems Name Problem SNOMED Code Status Onset Date Resolution Date Notes Provider Name and Address Organization Details Recorded Time Obstructi ve sleep apnea syndrome 99286672 Active 2015 From Automated Load;Prov ider: Rita Santos tatus: Active Not Available [facility] 6 04:49:51 Snoring 68447916 Active 2015 From Automated Load;Prov ider: Rita Santos tatus: Active Not Available [facility] 6 04:49:51 Disorder of head 748568109 Active 2015 From Automated Load;Prov ider: Osetinsky , Jama;S tatus: Active Not Available [facility] 6 04:49:51 Deviated nasal septum 758216274 Active 2015 From Automated Load;Prov ider: Jama Santos;Hilda tatus: Active Not Available [facility] 6 04:49:51 Hyperpara thyroidis m 03292837 Active 2015 Provider: Jama Santos;Hilda tatus: Active Not Available [facility] 6 04:49:51 Lack of energy 431759425 Active 2015 From Automated Load;Prov ider: Jama Santos;Hilda tatus: Active Not Available [facility] 6 04:49:51 Adenoid vegetatio ns 116049306 Active 2015 From Automated Load;Prov ider: Jama Santos;Hilda tatus: Active Not Available [facility] 6 04:49:51 Right flank pain 421133442 Active 2016 KYLIE LONG JR, MD [address] [place], [place] [address] , [facility] 7 10:36:59 Kidney stone 77816436 Active 2016 KYLIE LONG JR, MD [address] [place] [address], [phone] , [facility] 7 10:38:52 Urgent desire to urinate 15199882 Active 2015 From Automated Load;Prov ider: Kylie Long Jr;St atus: Active Not Available [facility] 7 02:45:42 Increased frequency of urination 538549312 Active 2015 From Automated Load;Prov ider: Kylie Long Jr;St atus: Active Not Available [facility] 7 02:45:42 Hypertrop hy of nasal turbinate s 93944363 Active 2015 From Automated Load;Prov ider: Jama Santos;S tatus: Active Not Available [facility] 7 07:35:22 Nocturia 031276938 Active 2015 From Automated Load;Prov ider: Kylie Long Jr; atus: Active Not Available [facility] 7 07:56:34 Lower urinary tract symptoms due to benign prostatic hypertrop 56905910577 101 Active 2015 From Automated Load;Prov ider: Kylie Long Jr; atus: Active Not Available [facility] 7 08:20:20 Obesity 814284636 Active 2017 [facility] 14:29:34 Problem Notes None recorded. Procedures Surgical History Date Name Laterality Status Provider Name and Address Organization Details Recorded Time 12/26/19 21 revision septoplasty completed JAMA SANTOS MD [address] [place], [address], [facility] 12/25/2020 11:12:37 12/26/19 21 SEPTOPLASTY (SURG) completed Not Available [facility] 01/12/2021 10:06:44 12/26/19 21 SEPTOPLASTY (SURG) completed Not Available [facility] 01/12/2021 10:11:44 11/17/19 21 Allergy Testing completed Mesha Jain [facility] 11/16/2020 14:05:56 10/10/19 21 Endoscopy Nasal; Diagnostic completed Laura Mcconnell [facility] 10/10/2020 09:48:17 12/12/19 18 Laryngoscopy Flex completed MICH PAPPAS MD [address] [place], [address], [facility] 12/11/2017 09:28:35 11/28/19 18 Laryngoscopy Flex completed Dianna Uribe [facility] 11/27/2017 10:49:17 03/19/20 17 procedure on knee completed Maryan South [facility] 10/10/2020 09:11:25 05/01/20 16 Ears/Nose/Throat Surgery completed Dianna Uribe [facility] 11/26/2017 15:11:19 09/15/19 15 Fragmenting of kidney stone completed Ric Beatty [facility] 11/04/2016 10:01:29 11/23/19 14 Ears/Nose/Throat Surgery completed Dianna Mariason [facility] 11/26/2017 15:11:33 Imaging Results None recorded. Procedure Notes None recorded. Medical Equipment None Reported. Allergies No known drug allergies Medications Name Sig Start Date Stop Date Status Note LastModified by Organization Details LastModified Time cyclobenza mari 10 mg tablet TAKE 1 TABLET BY MOUTH 3 TIMES A DAY NEEDED FOR MUSCLE SPASMS FOR 10 DAYS active Not Available Not Available No t Available promethazi ne-DM 6.25 mg-15 mg/5 mL oral syrup 01/06 completed Not Available Not Available Not Available atorvastat in 10 mg tablet 10/10 completed Not Available Not Available Not Available ibuprofen 800 mg tablet 11/27 completed Not Available Not Available Not Available lisinopril 20 mg tablet TAKE 1 TABLET BY MOUTH EVERY DAY active Not Available Not Available No t Available prednisone 20 mg tablet 10/10 completed Not Available Not Available Not Available ciprofloxa asad 500 mg tablet Take 1 tablet every 12 hours by oral route for 7 days. 01/06 completed Not Available Not Available Not Available hydrocodon e 10 mg-acetami nophen 325 mg tablet 01/06 completed Not Available Not Available Not Available tramadol 50 mg tablet 10/10 completed Not Available Not Available Not Available levothyrox ine 25 mcg tablet 10/10 completed Not Available Not Available Not Available prednisone 10 mg tablets in a dose pack 10/10 completed Not Available Not Available Not Available oxycodone- acetaminop hen 5 mg-325 mg tablet Take 1 tablet every 6 hours by oral route as needed for 10 days. 10/10 completed Not Available Not Available Not Available amoxicilli n 875 mg tablet 10/10 completed Not Available Not Available Not Available oxycodone- acetaminop hen 10 mg-325 mg tablet 01/06 completed Not Available Not Available Not Available benzonatat e 100 mg capsule 10/10 completed Not Available Not Available Not Available hydrocodon e 7.5 mg-acetami nophen 325 mg tablet TAKE 1 TABLET BY MOUTH EVERY 4 HOURS NEEDED active Not Available Not Available No t Available bupropion HCl 75 mg tablet 11/27 completed Not Available Not Available Not Available diclofenac sodium 75 mg tablet,del ayed release TAKE 1 TABLET BY MOUTH TWICE DAILY FOR 10 DAYS active Not Available Not Available No t Available montelukas t 10 mg tablet 10/10 completed Not Available Not Available Not Available oxycodone- acetaminop hen 7.5 mg-325 mg tablet Take 1 tablet every 6 hours by oral route as needed for 10 days. 01/06 completed Not Available Not Available Not Available methylpred nisolone 4 mg tablets in a dose pack 10/10 completed Not Available Not Available Not Available bromphenir amine-pseu doephedrin e-DM 2 mg-30 mg-10 mg/5 mL oral syrup 01/06 completed Not Available Not Available Not Available ondansetro n 4 mg disintegra ting tablet DISSOLVE 1 TABLET ON THE TONGUE EVERY 4 HOURS NEEDED active Not Available Not Available No t Available cefdinir 300 mg capsule 10/10 completed Not Available Not Available Not Available fluticason e propionate 50 mcg/actuat ion nasal spray,susp ension Two times a day 10/10 completed Not Available Not Available Not Available Ambien 10 mg tablet Bedtime 11/27 completed Frequen cy: hs;Alt Frequen cy: prn;Med ication Descrip tion: zolpide m; Dosage: 1; Route:o ral; refills :0; Quantit y:30 tablet Not Available Not Available Not Available amoxicilli n 875 mg-potassi um clavulanat e 125 mg tablet 10/10 completed Not Available Not Available Not Available hydroxyzin e pamoate 25 mg capsule 01/06 completed Not Available Not Available Not Available alfuzosin ER 10 mg tablet,ext ended release 24 hr take 1 tablet by mouth once daily 10/10 completed Not Available Not Available Not Available hydrocodon e 7.5 mg-acetami nophen 325 mg/15 mL oral solution 01/06 completed Not Available Not Available Not Available prednisolo ne 30 mg disintegra ting tablet 01/06 completed Not Available Not Available Not Available Nasacort 55 mcg nasal spray aerosol 1 spray in each nostril TID 2020 active Not Available Not Available Not Avai lable Clenpiq 10 mg-3.5 gram-12 gram/160 mL oral solution DIRECTED 10/10 completed Not Available Not Available Not Available Vitals Date Recorded Body weight Body mass index (BMI) Body height Body temperature Heart rate Oxygen saturation Oxygen saturation in Arterial blood by Pulse oximetry Systolic blood pressure Diastolic blood pressure Provider Name and Address Organization Details Last Updated DateTime 1 785694. 93 g 33.3 kg/m2 182.88 cm 97.8 [degF] 80 /min 98 % 98 % 146 mm[Hg] 90 mm[Hg] [facility] 1 09:14:34 Date Recorded Body height Body mass index (BMI) Body weight Body temperature Oxygen saturation Oxygen saturation in Arterial blood by Pulse oximetry Heart rate Systolic blood pressure Diastolic blood pressure Provider Name and Address Organization Details Last Updated DateTime 1 182.88 cm 33.2 kg/m2 446078. 13 g 96 [degF] 95 % 95 % 76 /min 131 mm[Hg] 78 mm[Hg] Emma Quezada [facility] 1 15:02:20 Date Recorded Body height Body mass index (BMI) Body weight Body temperature Oxygen saturation Oxygen saturation in Arterial blood by Pulse oximetry Heart rate Systolic blood pressure Diastolic blood pressure Provider Name and Address Organization Details Last Updated DateTime 1 182.88 cm 32.3 kg/m2 551001. 98 g 97.3 [degF] 96 % 96 % 72 /min 146 mm[Hg] 87 mm[Hg] [facility] 1 13:29:06 Social History Question Answer Notes LastModified by Organizat ion Details LastModified Time Tobacco Smoking Status Never [facility] 11/04/2016 10:01:02 Marital Status Unknown Informati on not available 11/04/2016 What Was The Date Of Your Most Recent Tobacco Screening? 01/14/2018 Information n ot available 11/02/2019 Sex: Unknown Functional Status Question Answer Note LastModified by Organization D etails LastModified Time What is your level of alcohol consumption? None Information not available 11/04/2016 Mental Status None recorded. Family History Relationship Description Onset Age of this Age Resolved Age Notes LastModified by Organization Details LastModified Time Father Hypertensive disorder [email or web address] Not available 15:10:58 Father Heart disease [email or web address] Not available 10/10 09:08:24 Mother Hypertensive disorder Not available 15:10:58 Medical History Condition Response Diabetes N Bleeding Disorder N Kidney Stones Y Sleep Disorder Y Anesthesia Complications N Cancer N Hypertension Y Past Encounters Encounter ID Performer Location Encounter Start Date Encounter Closed Date Diagnosis/Indication Diagnosis SNOMED-CT Code Diagnosis ICD10 Code Diagnosis Note [id number] KYLIE LONG JR, MD [facility] [address] [place] [address] 11/04/2016 09:40:11 11/05/2016 13:24:23 Kidney stone 18242106 N20.0 Right flank pain 3815138 09 R10.9 [id number] KYLIE LONG JR, MD SURGERY SCHEDULE [address] [place] [address] 11/06/2016 14:24:03 11/06/2016 14:28:35 Kidney stone 62749311 N20.0 [id number] [facility] [address] [address] 01/06/2017 15:46:48 01/06/2017 16:15:15 Kidney stone 09720243 N20.0 [id number] JAMA SANTOS MD [place] [facility] [address] [place] [address] 11/27/2017 09:10:28 11/27/2017 11:27:25 Snoring 98155195 R06.83 status post UPPP and tonsillect radha 05/01/2016 Obstructiv e sleep apnea syndrome 21043341 G47.33 status post UPPP and tonsillect radha 05/01/2016 Acquired macroglossia 19 1352824 K14.8 Hypertroph y of nasal turbinates 49326050 J34.3 Laryngopha ryngeal reflux 131898678 K21.9 Allergic rhinitis 676765 04 J30.9 Hypertroph y of lingual tonsil 644834911 J35.3 [id number] MICH PAPPAS MD [facility] [address] [place] [address] 12/11/2017 08:46:22 12/11/2017 09:34:14 Snoring 67351577 R06.83 Obesity 061055745 E66.9 Circadian rhythm sleep disorder of shift work type 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 G47.26 discussed associatio n w DANNI [id number] MICH PAPPAS MD [facility] [address] [place] [address] 1 01/01/2018 08:00:25 01/01/2018 13:20:47 [id number] MICH PAPPAS MD E[facility] [address] [place] [address] 1 01/14/2018 14:25:49 01/14/2018 14:42:07 Obesity 642754283 E66.9 Obstructiv e sleep apnea of adult 0841861959 103 G47.33 [id number] LEBRON ROCHA MD SURGERY SCHEDULE [address] [place] [address] 1 08/10/2018 09:17:14 08/10/2018 09:20:17 [id number] JAMA SANTOS MD [place] [facility] [address] [place] [address] 10/10/2020 09:02:22 10/10/2020 10:02:04 Deviated nasal septum 845326577 J34.2 - to the left in area 2, and to the right in area 4 and 5; history of septoplast y and bilateral SMR turbinates Dr. Garcia 2014 On examina tion - macroglossia 846989882 K14.8 Nasal obstruction 566465 000 J34.89 Hypertroph y of nasal turbinates 88591447 J34.3 history of septoplast y and bilateral SMR turbinates Dr. Garcia 2014 Rhinitis medicamentosa 89502098 J31.0 Polyp of nasal cavity 73 4107858 J33.0 Migraine 81198256 G43.90 9 - possible sinus Stenosis o f nasal valve 7454013016 7914166 J34.89 [id number] MD AGUSTIN LYNCH [facility] [address] [place] [address] 11/16/2020 13:30:55 11/16/2020 15:42:36 Deviated nasal septum 153517762 J34.2 - to the left in area 2, and to the right in area 4 and 5; history of septoplast y and bilateral SMR turbinates Dr. Garcia 2013 On examina tion - macroglossia 887211225 K14.8 Nasal obstruction 960715 000 J34.89 Hypertroph y of nasal turbinates 51258543 J34.3 history of septoplast y and bilateral SMR turbinates Dr. Garcia 2014 Rhinitis medicamentosa 02000779 J31.0 Migraine 83295423 G43.90 9 - possible sinus Stenosis o f nasal valve 5351656138 1977095 J34.89 Allergic rhinitis 779589 04 J30.9 - positive to Cocklebur, DFar, DPter and Cockroach [id number] JAMA SANTOS MD [place] [facility] [address] [place] [address] 11/16/2020 13:30:00 11/16/2020 14:43:56 [id number] JAMA SANTOS MD [place] [facility] [address] [place] [address] 01/02/2021 12:52:06 01/02/2021 13:43:13 Deviated nasal septum 636537178 J34.2 - to the left in area 2, and to the right in area 4 and 5; history of septoplast y and bilateral SMR turbinates Dr. Garcia 2013 - status post revision septoplast y, bilateral SMR turbinates and excision of left keeley bullosa on 12/25/2020 On examina tion - macroglossia 551023101 K14.8 Nasal obstruction 010193 000 J34.89 - status post revision septoplast y, bilateral SMR turbinates and excision of left keeley bullosa on 12/25/2020 Hypertroph y of nasal turbinates 27767541 J34.3 history of septoplast y and bilateral SMR turbinates Dr. Garcia 2013 - status post revision septoplast y, bilateral SMR turbinates and excision of left keeley bullosa on 12/25/2020 Rhinitis medicamentosa 76773041 J31.0 Migraine 09543678 G43.90 9 - possible sinus Stenosis o f nasal valve 6953425784 9883986 J34.89 - status post revision septoplast y, bilateral SMR turbinates and excision of left keeley bullosa on 12/25/2020 Allergic rhinitis 108213 04 J30.9 - positive to Cocklebur, DFar, DPter and Cockroach Health Concerns Section Related Observation LastModified by Organization Detai ls LastModified Time None Recorded Concern Status LastModified by Organization Details LastModified Time None Recorded Advance Directives Directive None Recorded Payers Insurance Date Sequence Insurance Name Policy Number Policy Purcell Covered Member ID Purcell Member ID Guarantor Name 11/25/2018 1 *SELF PAY* Chad Roa 03/05/2021 1 [place] [id number] Steven R Crispin [id number] Steven Roa Notes Date Note Type Note Provider Name and Address Organization Details Recorded Time 10/10/2020 text/html Steven is a 45 ye ar old male who comes in today for consultation at the request of Leana Goldman APRN for an evaluation of a deviated nasal septum. Steven says that he has had problems with nasal obstruction for years. He believes it has gotten significantly worse in the last year. He states he has constant nasal congestion. There are certain times of the day where it gets better but he becomes congested all over again. He does have pressure in his head and he will have to take Tylenol for his headaches. Steven has been using OTC Afrin to help him breathe at night. He complains of post nasal drainage every day. He has broken his nose in the past. He does have a history of a septoplasty and bilateral SMR turbinates by Dr. Garcia in 2013. Steven does not believe he has any seasonal allergies but has never been allergy tested. Steven does snore at night. He says that he feels like the snoring is coming from the back of his throat. He has been using a device where it pulls his tongue further out and the snoring improves. He has a history of a UPPP and tonsillectomy 2016. JAMA SANTOS MD [facility] [place], [address], [facility] 10/10/2020 17:21:25 11/16/2020 text/html Steven is a 45 ye ar old male here today for a follow up of his MQT and CT scan of the sinuses. Steven tested positive to Cocklebur, DFar, DPter and Cockroach . His CT scan showed a septal deviation to the right with mild mucosal hypertrophy of the nasal turbinates and a keeley bullosa but the sinuses were clear. Steven does complain of trouble breathing through the left side of his nose. He has had problems with nasal obstruction for years. He has used Flonase with no relief. He has also used Afrin at night to help him sleep but discontinued it about a week ago. He does have sleep apnea and has tried using a CPAP mask with no relief. He is claustrophobic and has a hard time tolerating the CPAP mask. He does have a history of a septoplasty and bilateral SMR turbinates by Dr. Garcia in 2013. JAMA SANTOS MD [address] [place] [address], [phone], [facility] 11/16/2020 17:39:57 01/02/2021 text/html Steven is a 45 ye ar old male here today for a postoperative revision septoplasty, bilateral SMR turbinates and excision of left keeley bullosa on 12/25/2020. Steven has been doing well since his procedure. He has experienced normal postoperative pain. He has not had any problems with bleeding. JAMA SANTOS MD [address] [place] [address] [place], [address], [facility] 01/02/2021 16:53:32
--- OUTSIDE RECORDS SUMMARY | 2025-03-15 11:04 | XMS_ITS | Clinical Summary ---
Author Organization [facility] Address [address] [place] [address] Care Team Providers Care Computer Assembler Name Role Phone Unavailable Primary Care Provider Unavailabl e Medications lisinopril 20 MG tablet 1 tablet (20 mg). 09/23/2023 Active pantoprazole (Protonix) 40 MG EC tablet Take 1 tablet (40 mg) by mouth 1 (one) time each day. Active Encounters Date Type Department Care Team Description 01/04/2025 Telephone [facility] [address] [place] [address] Caitie Cespedes 12/29/2024 4:00 PM EDT Office Visit [facility] Room [address] [place] [id number] Mariah [place], DDS Leann Jimenez DANNI (obstructive sleep apnea) (Primary Dx) 12/29/2024 Travel 12/15/2024 Telephone [facility] Room E[address] [place] [address] Caitie Cespedes from Last 3 Months Social History Tobacco Use Types Packs/Day Years Used Date Smoking Tobacco: Never Smokeless Tobacco: Never Tobacco Cessation:Counseling Given: Not Answered Alcohol Use Standard Drinks/Week Comments Never 0 (1 standard drink = 0.6 oz pur e alcohol) Sex and Gender Information Value Date Recorded Sex Assigned at Not on file Legal Sex Male 8:03 PM EDT Gender Identity Not on file Sexual Orientation Not on file Last Filed Vital Signs Vital Sign Reading Time Taken Comments Blood Pressure 126/84 12/29/2024 4:07 PM EDT Pulse 93 12/29/2024 4:07 PM EDT Temperature 36.6 C (97.8 F) 12/29/2024 4:07 PM EDT Respiratory Rate - - Oxygen Saturation 97% 12/29/2024 4:07 PM EDT Inhaled Oxygen Concentration - - Weight 116 kg (254 lb 13.6 oz) 12/29/2024 4:07 P M EDT Height 182.9 cm (6') 12/29/2024 4:07 PM EDT Body Mass Index 34.56 12/29/2024 4:07 PM EDT Plan of Treatment Health Maintenance Due Date Last Done Comments Dental Oral Exam 1976 Dental Prophylaxis 1976 Dental X-Ray: Bitewings 1976 Dental X-Ray: Full Mouth 1976 [facility]-Depression Screening 1976 [facility]-HIV Screening 1976 [facility]-Hepatitis C Screening 1976 [facility]-Infant/Child/Adol SDOH Screenings 1976 [facility]- SDOH Screenings 1994 [facility]-Adult SDOH Screenings 1994 [facility]-DTaP,Tdap,and Td Vaccine s (1 - Tdap) 1995 [facility]-Hepatitis B Vaccines (1 of 3 - 19+ 3-dose series) 1995 CT Colonography 2021 Colonoscopy 2021 FIT-DNA 2021 FIT 2021 FOBT 2021 Sigmoidoscopy 2021 [facility]-Colorectal Cancer Screening 2021 [id number] Vaccine ( - season) 2024 10/09/2021, 03/09/2021, 02/01/2021 [facility]-Influenza Vaccine (Seaso n Ended) 2025 07/08/2007 [facility]-Zoster Vaccines (1 of 2) 2026 [facility]-Obesity Intervention Completed 025, 11/01/2024, 09/01/2024 HPV Vaccines Aged Out No longer eligi ble based on patient's age to complete this topic [facility]-HIB Vaccines Aged Out No longer e ligible based on patient's age to complete this topic [facility]-Hepatitis A Vaccines Aged Out No longer eligible based on patient's age to complete this topic [facility]-IPV Vaccines Aged Out No longer e ligible based on patient's age to complete this topic [facility]-Pneumococcal Vaccine: Pediatrics (0 to 5 Years) and At-Risk Patients (6 to 49 Years) Aged Out No longer eligible b ased on patient's age to complete this topic [facility]-Rotavirus Vaccines Aged Out No lo nger eligible based on patient's age to complete this topic Insurance ZEFERINO
--- OUTSIDE RECORDS SUMMARY | 2025-03-15 11:04 | XMS_ITS | Patient Health Record ---
Author Organization [facility] Address [address] [place] [address] Care Team Providers Care Legal Paraprofessional Name Role Phone Ancelmo Aidan Primary Care Provider Migration, Provider Unavailable Unavailable Allergies No Known Allergies Medications Medication SIG (Take, Route, Fr equency, Duration) Notes Start Date End Date Status Lisinopril 20 MG 1 tab(s) orally once a day; Duration: 30 day(s) Active metFORMIN HCl 500 MG 1 tab(s) orally 2 t imes a day; Duration: 30 day(s) 12/19/2021 Active Immunizations Vaccine Route Administration Date Status Comme nts Fluvirin--Influenza vaccine 3+ year Unknown 07/08/2007 Administered Social History Tobacco Use: Social History Observation Description Date Details (start date - stop date) Never Smoker NA - NA Smoking: Question Answer Notes Are you a: nonsmoker Problems Problem Type SNOMED Code ICD Code Onset Dates Problem Status W/U Status Risk Notes Problem Essential hypertension (84943725) Essential hypertension (I10) Active confirmed Problem Obesity (235755000) Obesity (BMI 30-39.9) (E66.9) Active confirmed Encounters Encounter Location Date Provider Diagnosis [facility] [address] [place] [address] 12/18/2024 Provider Migration Plan Of Treatment Pending Test Test Name Order Date Rapid Strep 08/03/2007 Insurance Providers Payer Name Payer Address Payer Phone Subscriber Number Group Number Insured Name Patient Relationship to Insured Coverage Start Date Coverage End Date [employer] [address] [place] [address] [id number] Azam Roa Self - patient is the insured Medications Administered Medication Instructions Date of Administration Dosage Notes Dexamethasone 4mg Injection 12/14/2021 4 mg Medical (General) History Medical History History ICD Code H. Pylori 2 years ago, s/p treatment wit h Prevpac kidney stones hypertension Surgical History Surgery Date(Month/Year) Lt knee
--- OUTSIDE RECORDS SUMMARY | 2025-03-15 11:04 | XMS_ITS | Encounter Summary ---
Author Organization [facility] Address [address] [place] [address] Care Team Providers Care Supply Aide Name Role Phone Unavailable Primary Care Provider Unavailabl e Reason for Referral * Consultation (Routine) - Closed Specialty Diagnoses / Procedures Referred By Deloris t Referred To Contact Dentist / Pain Medicine Diagnoses DANNI (obstructive sleep apnea) Elvira Park MD [address] [place] [address] Phone: tel: fax: Mary Alice Cardoso, DDS [address] [place] [address] Phone: tel: fax: Referral ID Status Reason Start Date Expiration Date Visits Re quested Visits Authorized [id number] Closed 05/07/2024 11/06/2025 1 1 Encounter Details Date Type Department Care Team (Late st Contact Info) Description 05/07/2024 Community [facility] [address] [place] [address] Elvira Park MD [address] [place] [address] DANNI (obstructive sleep apnea) (Primary Dx) [...] Referral Routine DANNI (obstructive sleep apnea) Expected: 05/07/2024 (Approximate), Expires: 11/07/2025 documented as of this encounter Visit Diagnoses Diagnosis DANNI (obstructive sleep apnea)- Primary Obstructive sleep apnea (adult) (pediatric) documented in this encounter
== END 2025-03-15 23:59 | disposition home or self-care (01) ==
LOC: PREOP 11:01
PROVIDERS: PCP Nurse Practitioner Family; Visit Provider Orthopaedic Surgery
DX: R69 Illness, unspecified (principal)

== ENCOUNTER 2025-03-22 09:43 | Day surgery (SDC) | payer BC, SELFPAY ==
[2025-03-15 13:20] VITALS: BMI 34.4
[2025-03-22] VITALS (10 sets, daily range): BP systolic 120–146; BP diastolic 71–91; PULSE 66–92; RESP 12–18; TEMP 36.1–36.8; O2SAT 94–97
[2025-03-22] MEDS: LACTATED RINGERS 1000ML 1,000 ML 100 ML IV (10:22)
--- NOTE | 2025-03-22 10:33 | P.PNANES_ITS ---
[facility] Disclaimer: The information contained in this section may have been updated after the patient was seen, as this information can be updated by other users. Medical History History of echocardiogram Hyperlipidemia Family history of atrial fibrillation Abnormal electrocardiogram [ECG] [EKG] Diabetes mellitus, type 2 Kidney stone H. pylori infection IBS (irritable bowel syndrome) Hypertension Surgical History History of kidney surgery History of uvulopalatopharyngoplasty Hx of knee surgery Family History Father Hypertension Afib Heart disease Family/Other Hypertension Kidney stones Social History Smoking Status: Never smoker alcohol intake: never substance use type: denies use current occupational status: employed Travel in the last 8 weeks?: Inside the [place] household members: spouse housing: house current occupational exposures/hazards: No caffeine: No Have you lived/traveled outside US in past 30 days?: No Contact w/someone who lives/traveled outside US past 30 days?: No Exposure to someone with infectious disease in past 14 days?: No Do you have a fever (greater than 100.4 F or 38 C)?: No Have you tested positive for COVID-19?: No Exposed to someone with COVID-19 in past 14 days?: No Do you have a sore throat?: No Do you have a cough?: No Do you have any weakness?: No Do you have any diarrhea?: No Are you experiencing any unusual bleeding?: No Do you have any muscle aches/pain?: No Do you have any abdominal pain?: No Are you experiencing loss of taste or smell?: No [facility] Anesthesia Checklist Patient Identification Patient Identification: Arm Band Structural Data Admitted From: Home Planned Operative Procedure/s: Right Knee Arthroscopy Consent for Planned Operative Procedure(s) Verified: Yes Verified Documents: Surgical Consent and History and Physical NPO Status Verified Time NPO: 00:00 Additional verifications Anesthesia Reactions: No Hx Blood Transfusions: No Blood Transfusion Reaction: No Airway Assessment Mallampati Score:: Class II C-Spine Mobility Assessed: Yes TMJ Mobility Assessed: Yes Dentition: Good Dentition Neurological Assessment Level of Consciousness: Awake, Alert and Appropriate Anesthesia Plan Anesthesia Risk discussed: Yes Anesthesia Plan: Verified ASA Class: II Anesthesia Type: General
[2025-03-22] MEDS: SODIUM CHLORIDE IRRIG SOLUTION 6,000 ML 25 ML IR (11:46)
--- NOTE | 2025-03-22 12:20 | EXP.OP.NOTE ---
Date of procedure: 03/22/25 Pre-op Diagnosis:: Right knee complex tear posterior horn medial meniscus Post-op Diagnosis:: Same Procedure performed:: Right knee arthroscopy with partial medial meniscectomy Surgeon:: Ector Jara DO Airplane Designer(s):: Steven [facility] ATTENDANT:: Saroj Roberson Anesthesia: GETA Estimated blood loss (mL): 0 Operative findings:: Complex tear posterior horn medial meniscus see dictation Operative note:: Patient identified preoperatively. Right knee marked with yes-man initials. Transferred operative suite. Placed bilaterally in bed. General anesthesia administered airway secured. Right lower extremity prepped and draped within the knee shaikh. Once prepped and draped final operative timeout performed to identify the proper patient procedure and extremity. Everyone involved in the case agreed. There is no contraindication to beginning. Did receive preoperative antibiotics. Marking pen was used to padmini the bony landmarks of the knee and standard portal sites. Esmarch was used to exsanguinate the extremity pneumatic tourniquet inflated to 300 mmHg. Skin knife was used to incise a standard anterior lateral portal. Blunt trocar was placed in the patellofemoral joint. Exchange of the camera. Swept directly into the medial joint line where the anterior medial portal was made.. This was then exchanged with the probe. Upon probing there was a large complex tear of the posterior horn body of the medial meniscus. Using a combination of straight biter and sucker shaver partial medial meniscectomy was performed back to stable rim. The suction was placed on to confirm adequate resection of the meniscal torn tissue. Once this is complete attention was brought to the intercondylar notch. ACL was seen and intact. I scope into the lateral joint line. Within the lateral joint line there was some mild thinning of the meniscus but no meniscal tear. Lateral cartilage was slightly softened but intact. I swept back into the medial and lateral gutters back in the patellofemoral joint no further pathology was seen. The camera was removed. The joint was drained. Local anesthesia filtrated the portal sites. Skin closed with nylon stitch and sterile dressing placed from toe to thigh patient waken anesthesia taken recovery in stable condition. Condition: stable Disposition: PACU Complications:: None apparent
--- NOTE | 2025-03-22 12:21 | P.PNANES_ITS ---
[facility] Anesthesia Record Part I Anesthesia Record I Intake, IV Amount: 1,200 Hydration: Adequate Estimated blood loss (mL): 15 Urine output (mL): 0 Blood Products used (#): none Blood Pressure: 123/74 SaO2: 94 Pulse Rate: 69 Airway Patency: Patent Respiratory Rate: 12 Temperature: 98.3 F Patient is:: Drowsy and Stable Stable to PACU at:: 12:17
--- NOTE | 2025-03-22 12:25 | P.PNANES_ITS ---
[facility] Anesthesia Record Part I Anesthesia Record I Intake, IV Amount: 1,200 Hydration: Adequate Estimated blood loss (mL): 15 Urine output (mL): 0 Blood Pressure: 123/74 SaO2: 94 Pulse Rate: 69 Airway Patency: Patent Respiratory Rate: 12 Temperature: 97.3 F Patient is:: Drowsy and Stable
--- NOTE | 2025-03-22 12:55 | SUR.PHASEI ---
1249- Patient's VSS and no C/O pain. Dressing clean, dry and intact. patient sitting up in bed comfortably. Transported to post op via stretcher. Detailed report given to MICHELLE Morejon.
--- NOTE | 2025-03-23 10:26 | EXP.ANES.II ---
[facility] Anesthesia Record Part II Anesthesia Record Part II Discharge Time: 12:47 Destination: Surgical Day Care (OP Surgery) PACU nurse assessment reviewed?: Yes Patient Condition:: Good Anesthesia Complications:: None Swallowing reflex intact?: Yes Airway Patency: Patent Cyanosis?: No Blood Pressure: 123/77 SaO2: 95 Respiratory Rate: 18 Pulse Rate: 92 Temperature: 97.3 F Mental Status: Alert & Oriented Pain level:: 0 Nausea and/or vomitting:: None Intake, IV Amount: 0 Hydration: Adequate
[2025-03-23 10:27] VITALS: BP 123/77; PULSE 92; RESP 18; TEMP 36.3; O2SAT 95
[2025-03-23 19:08] LABS: POC Glucose,Bedside 116 (70-110)
== END 2025-03-22 13:20 | disposition home or self-care (01) ==
PROVIDERS: PCP Nurse Practitioner Family; Visit Provider Orthopaedic Surgery
PROC: (CPT 29870; principal; 2025-03-22 11:00)
DX: S83.231A Complex tear of medial meniscus, current injury, right knee, initial encounter (principal); X58.XXXA Exposure to other specified factors, initial encounter; E11.9 Type 2 diabetes mellitus without complications; E78.5 Hyperlipidemia, unspecified; I10 Essential (primary) hypertension; K58.9 Irritable bowel syndrome, unspecified; Z79.84 Long term (current) use of oral hypoglycemic drugs; Z79.899 Other long term (current) drug therapy
CPT/HCPCS: 29881; 82962; 96374; J0690; J1100; J2003; J2405; J2704; J3010; J7120

== ENCOUNTER 2025-04-13 07:47 | Outpatient (RCR) | payer BC, SELFPAY ==
--- NOTE | 2025-04-13 09:16 | HMH.PTOPEV ---
PT Outpatient Evaluation Rehab PT Outpatient Evaluation Start: 04/13/25 07:55 Freq: Status: Active Protocol: Document 04/13/25 07:55 PDESEROUX (Rec: 04/13/25 09:16 PDESEROUX [id number]) E-signed By Justin Hickey, PT Outpatient Therapy Subjective History Subjective History Pt. reports he lives in [place] and would like to pursue continuing Outpatient Physical Therapy at [facility] in [place]. Pt. reports he is going to contact [facility] rehab. in [place] to schedule his treats secondary to current residential situation. Pt. is a 49 year old male who presents to [facility] Outpatient Physical Therapy Services in [place] for the PT outpatient initial evaluation this date(04/13/25 ) w/ c/o acute and intermittent S/P RLE knee post- surgical P!, edema, and instability S/P complex tear of the medial meniscus of the RLE knee on 03/22/25. Pt. reports he hasn't been seen by a Physical Therapist yet secondary to scheduling difficulties d/t limitations in Outpatient Physical Therapy Services. Pt. reports having family in [place] so he did not have a problem w/ scheduling his initial evaluation in [place], however, would like to pursue w/ continuing treat in [place] secondary to that being his current City of residence. Pt. reports, I feel like I'm way ahead. Pt . reports compliancy w/ HEP at home noting improved ROM since surgery. Pt. vocalizes having a 90% overall improvement in ROM since surgery. Pt. reports, I can't run yet, and I'm worried about walking on concrete for an hour right now. 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 Pt. RTMD 05/12/25, however, vocalizes that he was instructed per Surgeon's office to contact them earlier if needed to assess the surgical RLE knee about returning to work on light duty if needed, per pt .'s tolerance. Pt. reports intermittent standing/ ambulation >1hr. on concrete at work. Pt. reports he ambulated w/ a FWW, WBAT, for 1.5wks. right after surgery, and then the FWW became more intermittent. Pt. reports compliancy w/ icing surgical knee.. Current medications include Tylenol PRN, Lisinopril, Metformin, and Pantoprazole. PMH includes hypertension, GERD, pre -diabetes, S/P LLE knee meniscus sx., surgery to remove a kidney stone, and surgery for sleep apnea. New diagnosis of No cancer in past 12 months? Chief Complaint Pain,Stiff,Swelling,Paresthesia,Weakness Symptom Type Ache,Dull,Other Symptoms Relieved By Rest/Positioning,Ice,OTC Meds,Elevation Symptoms Aggravated Sitting,Bending/Stooping,Physical Activity,Twisting, By Lifting Prior Functional None Limitations Current Functional Lifting,Sitting,Squatting,Recreation Activity,Walking, Limitations Stairs,Bending/Stooping Symptom Description Activity Dependent Level of pain today 0 (0-10) Pain scale - at its 0 best (0-10) Pain scale - at its 6 worst (0-10) Hip/Knee Eval Gait Observation General Gait Pattern Antalgic Gait,Decrease Weight Bear (R),Decrease Stride Observation Lngth (L) Assistive Device Assistive Devices None / NA Palpation Tenderness right Knee Palpation Tenderness,Trigger Point Finding Knee Palpation grade 4 +TTP medial jt. line, distal vastus medialis mm Overall Comment . MMT Hip Flexion Strength 4- Good- Grade Hip Abduction 4 Good Strength Grade Hip Adduction 4 Good Strength Grade Hip Extension 4 Good Strength Grade Gluteus [place] 4 Good Strength Grade Hip External 4 Good Rotation Strength Grade Hip Internal 4 Good Rotation Strength Grade Knee Extension 4- Good- Strength Grade Knee Flexion 4- Good- Strength Grade Knee Extensors Moderate Hypertonicity Muscle Tone Description Knee Flexors Muscle Moderate Hypertonicity Tone Description ROM Knee Extension 0 Active Range of Motion (degrees) Knee Extension 0 Passive Range of Motion (degrees) Knee Flexion Active 126 Range of Motion ( degrees) Knee Flexion Passive 128 Range of Motion ( degrees) Knee ROM Limitations Soft Tissue Tightness,Muscle Weakness,Muscle Tone DTR Rt Patellar 2+ Rt Ankle 2+ Sensation Comment pt. vocalized diminished light touch sensation carol- surgical incision Effusion joint effusion knee right exam standard Mid - Patellar 41.5 Circumerential Measure (cm) 5cm Proximal 44 Circumference Measure (cm) 5cm Distal 37 Circumference Measure (cm) Special Tests Knee Valgus Stress Negative Right Test Knee Varus Stress Negative Right Test Lower Extremity Functional Index Activities Today, do you or would you have any difficulty at all with: a.Any of your usual A little bit of difficulty work, housework or school activities b. Your usual A little bit of difficulty hobbies, recreational or sporting activities c. Getting into or A little bit of difficulty out of the bath d. Walking between No difficulty rooms e. Putting on your A little bit of difficulty shoes or socks f. Squatting Quite a bit of difficulty g. Lifting an object No difficulty , like a bag of groceries from the floor h. Performing light Moderate difficulty activities around your home i. Performing heavy Moderate difficulty activities around your home j. Getting into or A little bit of difficulty out of a car k. Walking 2 blocks No difficulty l. Walking a mile A little bit of difficulty m. Going up or down A little bit of difficulty 10 stairs (about 1 flight of stairs) n. Standing for 1 A little bit of difficulty hour o. Sitting for 1 Moderate difficulty hour p. Running on even Extreme difficulty or unable to perform activity ground q. Running on uneven Extreme difficulty or unable to perform activity ground r. Making sharp Extreme difficulty or unable to perform activity turns while running fast s. Hopping Extreme difficulty or unable to perform activity t. Rolling over in Moderate difficulty bed LEFI Score Lower Extremity 45 Functional Index Score Outpatient Therapy Assessment Impairments Problems/ Palpation Tenderness,Impaired Range of Motion,Impaired Impairmments Strength,Impaired Endurance,Impaired Gait Pattern, Impaired Walking,Impaired Standing,Impaired Sitting, Impaired Lifting,Impaired Stair Climbing,Impaired Incline Stepping,Impaired Stepping on Uneven Surface, Impaired Squatting,Impaired Recreational Activities, Impaired Running,Impaired Jumping,Impaired Work Activities,Increased Edema,Subjective C/O Pain,Impaired Self Care/Self Management Prognosis Rehab Potential Good Comment w/ HEP compliancy Clinical Impression Consistent with Yes Diagnosis Consistent with S/P complex tear med. 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 w/o difficulty to return to occupational Walk duty w/o limitation Increase Ability to Yes: >15' w/o difficulty to return to occupational duty Stand w/o limitation Increase Ability to Yes: >30' w/o difficulty to return to occupational duty Sit w/o limitation Improve Ability to Yes: Pt. will negotiate stair descension w/o difficulty Climb Stairs . Improve Ability to Yes Squat Return to Yes Recreational Activities Improve Tolerance to Yes Work Activities Improve LEFI Score Yes Decrease Edema Yes Decrease Subjective Yes: worse:1-10/25 C/O Pain Patient to be Ind w/ Yes Advanced HEP Outpatient Therapy Plan of Care Treatment Plan May Include Therapeutic Exercise Yes Including Home Exercise Program Manual Therapy Yes Techniques Neuromuscular Re- Yes education Therapeutic Yes Activities to Return to Previous Functional/Work Level Gait Training Yes ADL/Self Care Yes Education Dry Needling Yes Thermal Modalities Yes Electrical Yes Stimulation Ultrasound/ Yes Phonophoresis Iontophoresis Yes Vasopneumatic Yes Compression Pump Massage Yes Aquatic Therapy Yes Frequency Times per week 2 Duration Number of Weeks 6-8 Addendums This patient is a No candidate for social or vocational rehab ? Patient/Guardian Yes verbally acknowledges understanding of treatment program and consents to further treatment? Patient/Guardian Yes verbally acknowledges understanding of diagnosis, prognosis and goals for treatment? Eval Complexity PT Charges 92830 - Low Complexity Shoulder/Elbow Eval Shoulder Objective Measurements Elbow Objective Measurements PHYSICIAN CERTIFICATION: I certify the specified therapy services for Azam Roa are required, authorized, and reviewed every 30 days.
== END 2025-04-13 23:59 | disposition home or self-care (01) ==
LOC: PT.CARL 07:47
PROVIDERS: Visit Provider Orthopaedic Surgery
DX: R29.898 Other symptoms and signs involving the musculoskeletal system (principal)
CPT/HCPCS: 97110; 97161

== ENCOUNTER 2025-05-04 15:00 | Outpatient (RCR) | payer BC, SELFPAY | END 2025-05-04 23:59 | disposition home or self-care (01) | LOC: PT 15:00 | PROVIDERS: Visit Provider Orthopaedic Surgery | DX: S83.231A Complex tear of medial meniscus, current injury, right knee, initial encounter (principal) | CPT/HCPCS: 97110; 97530 ==